=== PATIENT | male | born 1965 | race Caucasian/White ===

== ENCOUNTER 2017-10-13 18:58 | Emergency (ER) | payer OTHER ==
--- NOTE | 2017-10-13 19:20 | ERPHSYRPT ---
- History of Present Illness Time Seen by Provider: 10/13/17 19:16 Source: patient Exam Limitations: no limitations Physician History: This is a 51-year-old white male with history of cervical fusion of his neck he arrives with complaint of pain in the right posterior base of the neck symptoms for 5 days. According to patient he bumped his head getting in his truck on Tuesday he did it again on Tuesday (5 and 3 days ago respectively) He denies any loss of consciousness he has pain in his posterior neck. Past medical history includes peripheral neuropathy, diabetes, he's had a scrotal sac removed secondary to gangrene Past surgical history includes joint replacement, (right knee) he's had the cervical fusion, scrotal sac removed secondary to gangrene patient does take hydrocodone on a regular basis which she receives from Dr. Arana. Timing/Duration: day(s) (5 days ago) Severity: moderate Modifying Factors: Improves With: movement Associated Symptoms: No nausea, No vomiting, No abdominal pain, No shortness of breath, No heartburn, No diaphoresis, No cough, No chills, No chest pain, No fever, No headaches, No loss of appetite, No malaise, No rash, No syncope, No seizure, No weakness Allergies/Adverse Reactions: iodine Allergy (Verified 10/13/17 19:33) sulfamethoxazole [From Bactrim] Allergy (Verified 05/22/16 17:40) trimethoprim [From Bactrim] Allergy (Verified 05/22/16 17:40) IV DYE Allergy (Uncoded 05/22/16 17:40) PLASTIC TAPE Allergy (Uncoded 05/22/16 17:40) Home Medications: Glipizide 5 mg [Glucotrol 5 MG] 10 mg PO BID 10/06/13 [History] Escitalopram Oxalate [Lexapro] 20 mg PO HS 05/22/16 [History] Liraglutide [Victoza 2-Zeb] 1.8 mg SQ DAILY 05/22/16 [History] Gabapentin 1 cap PO TID 07/19/17 [History] Hydrocodone/Acetaminophen [Hydrocodone-Acetamin 7.5-325] 1 tab PO BID 10/13/17 [ History] Liraglutide [Victoza 2-Zeb] 1.8 mg SQ DAILY 10/13/17 [History] Meloxicam 15 mg [Meloxicam 15 MG] 15 mg PO DAILY 10/13/17 [History] Rivaroxaban [Xarelto] 1 tab PO DAILY 10/13/17 [History] Testosterone Cypionate 200 mg IM UD 10/13/17 [History] Tizanidine HCl 4 mg [Zanaflex 4 MG] 4 mg PO TID PRN 10/13/17 [History] Hx Tetanus, Diphtheria Vaccination/Date Given: Yes Hx Influenza Vaccination/Date Given: Yes Hx Pneumococcal Vaccination/Date Given: Yes - Review of Systems Constitutional: No Fever, No Chills Eyes: No Symptoms Ears, Nose, & Throat: No Symptoms Respiratory: No Cough, No Dyspnea Cardiac: No Chest Pain, No Edema, No Syncope Abdominal/Gastrointestinal: No Abdominal Pain, No Nausea, No Vomiting, No Diarrhea Genitourinary Symptoms: No Dysuria Musculoskeletal: Neck Pain Skin: No Symptoms, No Rash Neurological: No Dizziness, No Focal Weakness, No Sensory Changes Psychological: No Symptoms Endocrine: No Symptoms All Other Systems: Reviewed and Negative - Past Medical History Pertinent Past Medical History: Yes Neurological History: Peripheral Neuropathy Cardiac History: No Pertinent History Respiratory History: No Pertinent History Endocrine Medical History: Diabetes Type II Musculoskeletal History: No Pertinent History Other Medical History: PT IS NON-INSULIN DEPENDENT DIABETIC, scrotal sac removed for a history of a spider bite that resulted in gangrene as stated per pt. - Past Surgical History Past Surgical History: Yes Musculoskeletal: Joint Replacement, Orthopedic Surgery Other Surgical History: SCROTOM REMOVED AND REBUILT, RT KNEE REPLACEMENT - Social History Smoking Status: Current every day smoker How long have you smoked: 25 years Exposure to second hand smoke: Yes Drug Use: none Patient Lives Alone: Yes - Nursing Vital Signs Nursing Vital Signs: Initial Vital Signs Temperature 98.1 F 10/13/17 19:03 Pulse Rate 89 10/13/17 19:03 Blood Pressure 97/54 10/13/17 19:03 O2 Sat by Pulse Oximetry 96 10/13/17 19:03 Pain Scale Pain Intensity 10 - Physical Exam General Appearance: no apparent distress, alert Eye Exam: PERRL/EOMI, eyes nml inspection Ears, Nose, Throat Exam: normal ENT inspection, TMs normal, pharynx normal, moist mucous membranes Neck Exam: normal inspection, non-tender, supple, full range of motion Respiratory Exam: normal breath sounds, lungs clear, No respiratory distress Cardiovascular Exam: regular rate/rhythm, normal heart sounds, normal peripheral pulses Gastrointestinal/Abdomen Exam: soft, normal bowel sounds, No tenderness, No mass Back Exam: normal inspection, normal range of motion, other (tenderness with palpation base of the neck posteriorly), No CVA tenderness, No vertebral tenderness Extremity Exam: normal inspection, normal range of motion, pelvis stable Neurologic Exam: alert, oriented x 3, cooperative, normal mood/affect, nml cerebellar function, nml station & gait, sensation nml, No motor deficits Skin Exam: normal color, warm, dry, No rash Lymphatic Exam: No adenopathy SpO2 Interpretation: normal - Course Nursing assessment & vital signs reviewed: Yes - CT Exams Cervical Spine CT Interpretation: Discussed w/radiologist, Other (CT cervical spine: Stable C4- C6 fusion and C4-T1 degenerative disc disease compared to October 04, 2017 C- spine x-ray. C5-C7 spinal canal narrowing due. Negative fracture/subluxation) Ordered Tests: Active Orders 24 hr Category Date Time Status CERVICAL SPINE WO CONTRAST [CT] Stat Exams 10/13/17 19:15 Taken - Progress Progress: improved Progress Note: 10/13/17 20:[address] C-spine performed Impression as read by radiologist stable C4-C6 fusion and C4-T1 degenerative disc disease compared to October 04, 2017 C-spine x-ray, C5-C7 spinal canal narrowing due to degenerative disc disease, negative fracture/subluxation Patient takes Poneto prescribed by Dr. rAana for his pain I have offered him when in the emergency room he states he has more at home he does not want anything at this time. Will give patient Flexeril 10 mg orally sent home with Flexeril 10 mg orally 3 times a day for 5 days. I have advised that the patient follow back up with Dr. Arana the patient's states that he has an appointment with Dr. Arana Will recommend she contact him for follow-up. Patient to return for acute distress or for severe symptoms. - Departure Time of Disposition: 20:25 Departure Disposition: Home Clinical Impression: Neck pain, History of degenerative disc disease, spinal canal narrowing due to DDD Cervical strain Qualifiers: Encounter type: initial encounter Qualified Code(s): S16.1XXA - Strain of muscle, fascia and tendon at neck level, initial encounter Condition: Fair Critical Care Time: No Referrals: AZUL AMADO, SHIPPING AND RECEIVING CLERK [Primary Care Provider] - Additional Instructions: Return home rest. Continue Poneto as prescribed by Dr. Arana. Flexeril 10 mg orally 3 times a day for 5 days. Follow-up with Dr. Arana call in the morning . Return for acute distress or for severe symptoms. Prescriptions: Cyclobenzaprine HCl [Flexeril] 10 mg PO TID #15 tablet
[2017-10-13] MEDS ORDERED: Cyclobenzaprine 10 MG ONE (20:26)
[2017-10-13] MEDS: Cyclobenzaprine 10 MG PO ONE (20:27)
[2017-10-13 20:40] VITALS: BP 104/59; PULSE 96; O2SAT 97
--- NOTE | 2017-10-14 08:35 | XRAY ---
Indication: Pain following head injury 4 days ago. Multiple contiguous axial images obtained through the cervical spine. Sagittal and coronal reformatted images obtained. Comparison: Cervical radiograph October 04, 2017. Axial images negative for acute fracture or suspicious bony lesions. Again C4-C6 fusion surgery with intact anterior plate/screws and intervertebral spacers. There is also mild/moderate C4-T1 degenerative endplate spurring and atlantoaxial degenerative changes. C5-C7 levels demonstrates spinal canal and bilateral foraminal narrowing due to endplate spurring. Sagittal and coronal reformatted images again demonstrate normal normal alignment with mild C6-C7 disc space narrowing. No acute compression fracture, subluxation, or jumped facet. Normal-appearing craniocervical junction. Visualized noncontrasted soft tissues demonstrate mild bilateral carotid calcifications. Base of the brain and lung apices unremarkable. Impression: 1. Negative for acute fracture/subluxation. 2. Stable C4-C6 fusion surgery. 3. Stable multilevel degenerative changes with subsequent C5-C7 foraminal and spinal canal narrowing. CT DI 127.40
== END 2017-10-13 20:38 | disposition home or self-care (01) ==
LOC: ED 18:58
DX: S16.1XXA Strain of muscle, fascia and tendon at neck level, initial encounter (principal); M54.2 Cervicalgia; Z79.899 Other long term (current) drug therapy; M48.02 Spinal stenosis, cervical region; M50.323 Other cervical disc degeneration at C6-C7 level
CPT/HCPCS: 72125; 99283; 99284; A9270-GY

== ENCOUNTER 2018-04-22 12:44 | Emergency (ER) | payer MEDICARE ==
--- NOTE | 2018-04-22 13:15 | ERPHSYRPT ---
- History of Present Illness Time Seen by Provider: 04/22/18 13:15 Historian: patient Exam Limitations: no limitations Patient Subjective Stated Complaint: pt here for abd pain for 2 weeks, was seen by family doc and is to see surgeon. pt co n/v/d. Triage Nursing Assessment: pt alert, resp easy, sin w/d/p, abd tender to left side Physician History: The patient is a 52-year-old male with his complaining of worsening "stomach pain" for 2 weeks. This week he saw a local care provider and was told he needed to see a surgeon for a upper scope. The surgeon cannot see him until May. After he eats, he will either vomit or have diarrhea. After eating, his stomach will feel better for a few minutes until he vomits. He does not eat spicy foods. He drinks 2 or 3 cups of coffee daily in the morning. He does not drink alcohol, although he did have a few drinks last Tuesday, the first he has had in 4 years. He denies any abdominal surgeries. His past medical history is significant for diabetes, low testosterone, cervical spine surgery, PE, and depression. Timing/Duration: week(s) (2), gradual onset, worse Activities at Onset: none Quality: burning, stabbing Abdominal Pain Onset Location: epigastric Pain Radiation: back Severity of Pain-Max: severe Severity of Pain-Current: moderate Modifying Factors: Improves With: nothing Associated Symptoms: diarrhea, nausea, vomiting Previous symptoms: same symptoms as today, recently seen, recently treated Allergies/Adverse Reactions: iodine Allergy (Verified 04/22/18 13:05) sulfamethoxazole [From Bactrim] Allergy (Verified 04/22/18 13:05) trimethoprim [From Bactrim] Allergy (Verified 04/22/18 13:05) IV DYE Allergy (Uncoded 04/22/18 13:05) PLASTIC TAPE Allergy (Uncoded 04/22/18 13:05) Home Medications: Glipizide 5 mg [Glucotrol 5 MG] 10 mg PO BID 10/06/13 [History] Escitalopram Oxalate [Lexapro] 20 mg PO HS 05/22/16 [History] Liraglutide [Victoza 2-Zeb] 1.8 mg SQ DAILY 05/22/16 [History] Gabapentin 1 cap PO TID 07/19/17 [History] Liraglutide [Victoza 2-Zeb] 1.8 mg SQ DAILY 10/13/17 [History] Meloxicam 15 mg [Meloxicam 15 MG] 15 mg PO DAILY 10/13/17 [History] Rivaroxaban [Xarelto] 1 tab PO DAILY 10/13/17 [History] Testosterone Cypionate 200 mg IM UD 10/13/17 [History] Tizanidine HCl 4 mg [Zanaflex 4 MG] 4 mg PO TID PRN 10/13/17 [History] Tapentadol HCl [Nucynta ER] 50 mg DAILY 04/22/18 [History] Hx Tetanus, Diphtheria Vaccination/Date Given: Yes Hx Influenza Vaccination/Date Given: No Hx Pneumococcal Vaccination/Date Given: No Immunizations Up to Date: Yes - Review of Systems Constitutional: No Fever, No Chills Eyes: No Symptoms Ears, Nose, & Throat: No Symptoms Respiratory: No Cough, No Dyspnea Cardiac: No Chest Pain, No Edema, No Syncope Abdominal/Gastrointestinal: Abdominal Pain, Nausea, Vomiting, Diarrhea Genitourinary Symptoms: No Symptoms Musculoskeletal: No Back Pain, No Neck Pain Skin: No Rash Neurological: No Dizziness, No Focal Weakness, No Sensory Changes Psychological: No Symptoms Endocrine: No Symptoms Hematologic/Lymphatic: No Symptoms Immunological/Allergic: No Symptoms All Other Systems: Reviewed and Negative - Past Medical History Pertinent Past Medical History: Yes Neurological History: Peripheral Neuropathy Cardiac History: No Pertinent History Respiratory History: No Pertinent History Endocrine Medical History: Diabetes Type II Musculoskeletal History: No Pertinent History Other Medical History: PT IS NON-INSULIN DEPENDENT DIABETIC, scrotal sac removed for a history of a spider bite that resulted in gangrene as stated per pt. - Past Surgical History Past Surgical History: Yes Musculoskeletal: Joint Replacement, Orthopedic Surgery Other Surgical History: SCROTOM REMOVED AND REBUILT, RT KNEE REPLACEMENT - Social History Smoking Status: Current some day smoker How long have you smoked: 25 years Exposure to second hand smoke: No Drug Use: none Patient Lives Alone: No - Nursing Vital Signs Nursing Vital Signs: Initial Vital Signs Temperature 97.9 F 04/22/18 12:59 Pulse Rate 97 H 04/22/18 12:59 Respiratory Rate 18 04/22/18 12:59 Blood Pressure 158/94 04/22/18 12:59 O2 Sat by Pulse Oximetry 98 04/22/18 12:59 Pain Scale Pain Intensity 0 - Physical Exam General Appearance: no apparent distress, obese Eye Exam: PERRL/EOMI, eyes nml inspection Ears, Nose, Throat Exam: normal ENT inspection, pharynx normal, moist mucous membranes Neck Exam: normal inspection, non-tender, supple, full range of motion Respiratory Exam: normal breath sounds, lungs clear, No respiratory distress Cardiovascular Exam: regular rate/rhythm, normal heart sounds Gastrointestinal/Abdomen Exam: normal bowel sounds, tenderness (epigastric) Rectal Exam: not done Back Exam: normal inspection, normal range of motion, No CVA tenderness, No vertebral tenderness Extremity Exam: normal inspection, normal range of motion, pelvis stable Neurologic Exam: alert, oriented x 3, cooperative, normal mood/affect, nml cerebellar function, sensation nml, No motor deficits Skin Exam: normal color, warm, dry SpO2 Interpretation: normal SpO2: 98 Oxygen Delivery: Room Air - Course EKG Interpreted by Me: RATE, Sinus Rhythm, NORMAL AXIS, NORMAL INTERVALS, NORMAL QRS, NORMAL ST-T - CT Exams Abdomen/Pelvis CT Interpretation: Tele-radiologist Report (Per Dr Kirkland), No appendicitis, Other (non acute abdomin; bilateral pulmonary nodules) Ordered Tests: Active Orders 24 hr Category Date Time Status Clean Catch Urine Specimen STAT Care 04/22/18 15:29 Active EKG-ER Only STAT Care 04/22/18 13:06 Active IV Insertion STAT Care 04/22/18 13:34 Active ABDOMEN AND PELVIS W/0 CONTRAS [CT] Stat Exams 04/22/18 13:34 Taken AMYLASE Stat Lab 04/22/18 13:34 Completed CBC W DIFF Stat Lab 04/22/18 13:34 Completed CMP Stat Lab 04/22/18 13:34 Completed LIPASE Stat Lab 04/22/18 13:34 Completed Lactic Acid Stat Lab 04/22/18 13:50 Results TROPONIN Q3H Lab 04/22/18 13:45 Completed UA W/RFX UR CULTURE Stat Lab 04/22/18 15:29 Ordered Medication Summary Discontinued Medications Generic Name Dose Route Start Last Admin Trade Name Freq PRN Reason Stop Dose Admin Sodium Chloride 1,000 mls @ 999 mls/hr 04/22/18 13:34 04/22/18 13:42 Sodium Chloride 0.9% 1000 Ml IV 04/22/18 14:34 999 mls/hr .Q1H1M STA Administration Sodium Chloride Confirm 04/22/18 13:39 Sodium Chloride 0.9% 1000 Ml Administered 04/22/18 13:40 Dose 1,000 mls @ ud .ROUTE .STK-MED ONE Morphine Sulfate 4 mg 04/22/18 14:02 04/22/18 14:08 Morphine Sulfate 4 Mg Inj IV 04/22/18 14:03 4 mg STAT ONE Administration Morphine Sulfate Confirm 04/22/18 14:05 Morphine Sulfate 4 Mg Inj Administered 04/22/18 14:06 Dose 4 mg .ROUTE .STK-MED ONE Ondansetron HCl 4 mg 04/22/18 13:34 04/22/18 13:43 Zofran 4 Mg/2 Ml Vial IV 04/22/18 13:35 4 mg STAT ONE Administration Ondansetron HCl Confirm 04/22/18 13:38 Zofran 4 Mg/2 Ml Vial Administered 04/22/18 13:39 Dose 4 mg .ROUTE .STK-MED ONE Pantoprazole Sodium 40 mg 04/22/18 13:34 04/22/18 13:43 Protonix 40 Mg Iv IV 04/22/18 13:35 40 mg STAT ONE Administration Pantoprazole Sodium Confirm 04/22/18 13:38 Protonix 40 Mg Iv Administered 04/22/18 13:39 Dose 40 mg IV .STK-MED ONE Lab/Rad Data: Laboratory Result Diagrams 04/22/18 13:34 04/22/18 13:34 Laboratory Results 04/22/18 04/22/18 04/22/18 Range/Units 13:50 13:45 13:34 WBC (4.0-10.5) K/mm3 RBC (4.1-5.6) M/mm3 Hgb (12.5-18.0) gm/dl Hct (42-50) % MCV (78-100) fl MCH (26-32) pg MCHC (32-36) g/dl RDW (11.5-14.0) % Plt Count (150-450) K/mm3 MPV (6-9.5) fl Gran % (36.0-66.0) % Eos # (Auto) (0-0.5) Absolute Lymphs (auto) (1.0-4.6) Absolute Monos (auto) (0.0-1.3) Lymphocytes % (24.0-44.0) % Monocytes % (0.0-12.0) % Eosinophils % (0.00-5.0) % Basophils % (0.0-0.4) % Absolute Granulocytes (1.4-6.9) Basophils # (0-0.4) Sodium 137 (137-145) mmol/L Potassium 5.0 (3.5-5.1) mmol/L Chloride 97 L (98-107) mmol/L Carbon Dioxide 28 (22-30) mmol/L Anion Gap 16.6 H (5-15) MEQ/L BUN 18 (9-20) mg/dL Creatinine 0.79 (0.66-1.25) mg/dL Estimated GFR > 60.0 ML/MIN Glucose 203 H (74-106) mg/dL Lactic Acid 1.9 (0.4-2.0) Calcium 9.7 (8.4-10.2) mg/dL Total Bilirubin 0.50 (0.2-1.3) mg/dL AST 26 (17-59) U/L ALT 28 (0-50) U/L Alkaline Phosphatase 87 (38-126) U/L Troponin I < 0.012 (0.000-0.034) ng/mL Serum Total Protein 7.1 (6.3-8.2) g/dL Albumin 4.4 (3.5-5.0) g/dL Amylase < 30 L (30-110) U/L Lipase 60 (23-300) U/L 04/22/18 Range/Units 13:34 WBC 11.9 H (4.0-10.5) K/mm3 RBC 5.02 (4.1-5.6) M/mm3 Hgb 15.1 (12.5-18.0) gm/dl Hct 46.2 (42-50) % MCV 92.0 (78-100) fl MCH 30.1 (26-32) pg MCHC 32.7 (32-36) g/dl RDW 13.4 (11.5-14.0) % Plt Count 263 (150-450) K/mm3 MPV 10.2 H (6-9.5) fl Gran % 73.2 H (36.0-66.0) % Eos # (Auto) 0.33 (0-0.5) Absolute Lymphs (auto) 1.98 (1.0-4.6) Absolute Monos (auto) 0.85 (0.0-1.3) Lymphocytes % 16.6 L (24.0-44.0) % Monocytes % 7.1 (0.0-12.0) % Eosinophils % 2.8 (0.00-5.0) % Basophils % 0.3 (0.0-0.4) % Absolute Granulocytes 8.74 H (1.4-6.9) Basophils # 0.04 (0-0.4) Sodium (137-145) mmol/L Potassium (3.5-5.1) mmol/L Chloride (98-107) mmol/L Carbon Dioxide (22-30) mmol/L Anion Gap (5-15) MEQ/L BUN (9-20) mg/dL Creatinine (0.66-1.25) mg/dL Estimated GFR ML/MIN Glucose (74-106) mg/dL Lactic Acid (0.4-2.0) Calcium (8.4-10.2) mg/dL Total Bilirubin (0.2-1.3) mg/dL AST (17-59) U/L ALT (0-50) U/L Alkaline Phosphatase (38-126) U/L Troponin I (0.000-0.034) ng/mL Serum Total Protein (6.3-8.2) g/dL Albumin (3.5-5.0) g/dL Amylase (30-110) U/L Lipase (23-300) U/L - Progress Progress: improved Progress Note: 04/22/18 15:54 After MSO4 4 mg, protonix 40 mg, zofran 4 mg, and fluids by IV, pt is pain-free. Counseled pt/family regarding: lab results, diagnosis, need for follow-up, rad results - Departure Time of Disposition: 15:55 Departure Disposition: Home Clinical Impression: Gastritis, Pulmonary nodules Condition: Stable Critical Care Time: No Referrals: AUZL AMADO, INTERIOR DESIGN COORDINATOR [Primary Care Provider] - Additional Instructions: You have gastritis. You were given Protonix 40 mg, morphine 4 mg, Zofran or milligrams, and fluids by IV in the ER. Take omeprazole 20 mg 2 times a day. Take sucralfate 1 g 4 times a day. You also had findings of pulmonary nodules in your left and right lower lungs. These were found on the CT scan of her abdomen and pelvis. Follow-up with your primary medical doctor next week. Prescriptions: Omeprazole 20 mg PO DAILY #30 tab.rap. Sucralfate 1 gm PO QID #40 tablet
[2018-04-22] MEDS ORDERED: Sodium Chloride 0.9% 1000 ML 1,000 ML IV STA (13:34)
[2018-04-22] MEDS ORDERED: PROTONIX 40 MG IV IV ONE ×2 (13:34→13:38)
[2018-04-22] MEDS ORDERED: Zofran 4 MG/2 ML VIAL IV ONE (13:34)
[2018-04-22] MEDS ORDERED: Zofran 4 MG/2 ML VIAL ONE (13:38)
[2018-04-22] MEDS ORDERED: Sodium Chloride 0.9% 1000 ML 1,000 ML ONE (13:39)
[2018-04-22 13:44] LABS: BASOPHIL % 0.3 % (0.0-0.4); Basophil (Absolute #) 0.04 (0-0.4); Eosinophil % 2.8 % (0.00-5.0); Eosinophil (Absolute #) 0.33 (0-0.5); Granulocyte Absolute (ANC) 8.74 (1.4-6.9); Granulocytes % 73.2 % (36.0-66.0); Hematocrit 46.2 % (42-50); Hemoglobin 15.1 gm/dl (12.5-18.0); Lymphocyte (Absolute #) 1.98 (1.0-4.6); Lymphocytes % 16.6 % (24.0-44.0); Mean Corpuscular Hemoglobin 30.1 pg (26-32); Mean Corpuscular Hgb Concent. 32.7 g/dl (32-36); Mean Platelet Volume 10.2 fl (6-9.5); Monocyte (Absolute #) 0.85 (0.0-1.3); Monocytes % 7.1 % (0.0-12.0); Platelet Count 263 K/mm3 (150-450); Red Blood Count 5.02 M/mm3 (4.1-5.6); Red Cell Distribution Width 13.4 % (11.5-14.0); White Blood Count 11.9 K/mm3 (4.0-10.5)
[2018-04-22 13:51] LABS: ALBUMIN 4.4 g/dL (3.5-5.0); ALKALINE PHOSPHATASE 87 U/L (38-126); AMYLASE < 30 U/L (30-110); ANION GAP 16.6 MEQ/L (5-15); BLOOD UREA NITROGEN 18 mg/dL (9-20); CHLORIDE 97 mmol/L (98-107); Calcium 9.7 mg/dL (8.4-10.2); Carbon Dioxide 28 mmol/L (22-30); Creatinine 1 0.79 mg/dL (0.66-1.25); Glucose 203 mg/dL (74-106); LIPASE 60 U/L (23-300); SGOT/AST 26 U/L (17-59); SGPT/ALT 28 U/L (0-50); SODIUM 137 mmol/L (137-145); Total Protein 7.1 g/dL (6.3-8.2)
[2018-04-22 13:54] LABS: Lactic Acid 1.9 (0.4-2.0)
[2018-04-22] MEDS ORDERED: MORPHINE SULFATE 4 MG INJ IV ONE (14:02)
[2018-04-22] MEDS ORDERED: MORPHINE SULFATE 4 MG INJ ONE (14:05)
[2018-04-22 15:59] VITALS: PULSE 100
[2018-04-22 16:01] VITALS: O2SAT 98
[2018-04-22 16:16] VITALS: BP 113/91
--- NOTE | 2018-04-22 16:44 | XRAY ---
Indication: Abdominal pain 2 weeks. Nausea, vomiting, and diarrhea. Multiple contiguous axial images obtained through the abdomen and pelvis without contrast as ordered. Comparison: None. Lung bases demonstrates minimal bibasilar dependent atelectasis and 5 mm left lower lobe noncalcified nodule. No ventricular effusion. Heart is not enlarged. Noncontrasted stomach and bowel loops appear nonobstructed. Normal appendix. Mild fecal debris in the ascending and transverse colon. 2 nonobstructing right renal microcalculi, largest 3 mm in the lower calyx. There are 2 left lower pole renal cysts, largest 6.3 cm. Remaining liver, gallbladder, pancreas, spleen, adrenal glands, kidneys, ureters, and bladder appear unremarkable for noncontrast exam. Mild scattered aortoiliac calcifications without AAA. Osseous structures intact with mild degenerative changes throughout the thoracolumbar spine. No ventral or inguinal hernias. Impression: 1. Left renal cysts and nonobstructing right renal microcalculi. 2. No acute intra-abdominal/pelvic abnormalities on this noncontrast exam. 3. Incidental left lower lobe noncalcified micronodule probably granulomatous in this demographic. CT chest may yield further information if clinically warranted. Comment: Preliminary interpretation was made by [facility] who does not report incidental right renal microcalculi. CTDI 23.68
[2018-04-22 19:21] LABS: Appearance CLEAR (CLEAR); Glucose >=500 mg/dL (NEGATIVE); Leukocyte Esterase NEGATIVE (NEGATIVE); Nitrite NEGATIVE (NEGATIVE); Protein,Urine Dip NEGATIVE (Negative)
[2018-04-22 19:22] LABS: Bilirubin NEGATIVE (NEGATIVE); Blood NEGATIVE Ery/ul (0-5); Ketones NEGATIVE (NEGATIVE); Urobilinogen NORMAL mg/dL (0-1)
== END 2018-04-22 16:16 | disposition home or self-care (01) ==
LOC: ED 12:44
DX: K29.70 Gastritis, unspecified, without bleeding (principal); R91.1 Solitary pulmonary nodule; R10.13 Epigastric pain; R11.2 Nausea with vomiting, unspecified; R19.7 Diarrhea, unspecified; Z79.899 Other long term (current) drug therapy
CPT/HCPCS: 36000; 36415; 74176; 80053; 81001; 82150; 83605; 83690; 84484; 85025; 93005; 96360; 96374; 96375; 99284; J2270; J2405

== ENCOUNTER 2019-02-22 14:26 | Emergency (ER) | payer MEDICARE ==
[2019-02-22] MEDS ORDERED: DILAUDID 2 MG INJECTION IM ONE (14:50)
[2019-02-22] MEDS ORDERED: Hydromorphone 1 mg/ml Ampule ONE (15:17)
--- NOTE | 2019-02-22 15:17 | ERPHSYRPT ---
- History of Present Illness Time Seen by Provider: 02/22/19 15:00 Source: patient Exam Limitations: no limitations Patient Subjective Stated Complaint: pt stated he had an angioplasty due on 02/14 , pt stated that dog jumped up on pt, pt stated that pain has increased due to the dog jumping up on him Triage Nursing Assessment: pt came into the ER stated that he is in 7/10 pain, pt has 2 incisions on left leg, pt has scattered bruising to left leg, pt stated that he had angioplasty done on the Physician History: Patient had an angioplasty 8 days ago at [facility] due to peripheral vascular disease. His dog hit his leg in the morning of 02/21/2019 at the incision site, causing severe pain that his Nucenta 300mg BID has not improved. He has not been evaluated prior to today's visit. He denies any dehiscence to the incision site or bleeding or drainage of any type to the incision site. Method of Injury: direct blow (dog jumped up and hit the lower medial leg incision site) Occurred: yesterday Quality: stabbing, throbbing Severity of Pain-Max: severe Severity of Pain-Current: severe Lower Extremities Pain: leg: left Modifying Factors: Improves With: movement (makes it worse), other (palpation makes it worse) Associated Symptoms: No unable to bear weight, No dizzy, No fainted, No seizure , No snapping sensation, No popping sensation Allergies/Adverse Reactions: iodine Allergy (Verified 02/22/19 15:24) sulfamethoxazole [From Bactrim] Allergy (Verified 02/22/19 15:24) trimethoprim [From Bactrim] Allergy (Verified 02/22/19 15:24) IV DYE Allergy (Uncoded 04/22/18 13:05) PLASTIC TAPE Allergy (Uncoded 04/22/18 13:05) Home Medications: Glipizide 5 mg [Glucotrol 5 MG] 10 mg PO BID 10/06/13 [History] Gabapentin 1 cap PO BID 07/19/17 [History] Liraglutide [Victoza 2-Zeb] 1.8 mg SQ DAILY 10/13/17 [History] Testosterone Cypionate 200 mg IM UD 10/13/17 [History] Atorvastatin Calcium 80 mg PO DAILY 02/22/19 [History] Ranitidine HCl 300 mg PO DAILY 02/22/19 [History] Hx Tetanus, Diphtheria Vaccination/Date Given: Yes (unknown) Hx Influenza Vaccination/Date Given: No Hx Pneumococcal Vaccination/Date Given: No - Review of Systems Constitutional: No Fever, No Chills Eyes: No Symptoms Ears, Nose, & Throat: No Symptoms Respiratory: No Cough, No Dyspnea Cardiac: No Chest Pain, No Edema, No Palpitations, No Syncope Abdominal/Gastrointestinal: No Abdominal Pain, No Nausea, No Vomiting, No Diarrhea Genitourinary Symptoms: No Dysuria, No Hematuria, No Flank Pain Musculoskeletal: No Back Pain, No Neck Pain Skin: No Rash Neurological: No Dizziness, No Focal Weakness, No Parasthesia, No Sensory Changes Psychological: No Symptoms Endocrine: No Symptoms Hematologic/Lymphatic: No Easy Bleeding, No Easy Bruising All Other Systems: Reviewed and Negative - Past Medical History Pertinent Past Medical History: Yes Neurological History: Peripheral Neuropathy ENT History: No Pertinent History Cardiac History: Peripheral Vascular Disease Respiratory History: No Pertinent History Endocrine Medical History: Diabetes Type II Musculoskeletal History: No Pertinent History GI Medical History: No Pertinent History History: No Pertinent History Psycho-Social History: No Pertinent History Male Reproductive Disorders: No Pertinent History Other Medical History: PT IS NON-INSULIN DEPENDENT DIABETIC, scrotal sac removed for a history of a spider bite that resulted in gangrene as stated per pt. - Past Surgical History Past Surgical History: Yes Neuro Surgical History: No Pertinent History Cardiac: Vascular Surgery Respiratory: No Pertinent History Gastrointestinal: No Pertinent History Genitourinary: No Pertinent History Musculoskeletal: Joint Replacement, Orthopedic Surgery Male Surgical History: No Pertinent History Other Surgical History: SCROTOM REMOVED AND REBUILT, RT KNEE REPLACEMENT, angioplasty to left leg - Social History Smoking Status: Former smoker How long have you smoked: 25 years Exposure to second hand smoke: No Drug Use: none Patient Lives Alone: No - Nursing Vital Signs Nursing Vital Signs: Initial Vital Signs Temperature 98.2 F 02/22/19 14:39 Pulse Rate 97 H 02/22/19 14:39 Respiratory Rate 16 02/22/19 14:39 Blood Pressure 115/83 02/22/19 14:39 O2 Sat by Pulse Oximetry 96 02/22/19 14:39 Pain Scale Pain Intensity [] 7 Pain Intensity 7 - Physical Exam General Appearance: alert Eyes, Ears, Nose, Throat Exam: moist mucous membranes Neck Exam: non-tender, supple Cardiovascular/Respiratory Exam: chest non-tender, normal breath sounds, regular rate/rhythm, no respiratory distress Gastrointestinal/Abdominal Exam: non-tender, soft, No guarding, No tenderness Back Exam: normal inspection, No CVA tenderness, No vertebral tenderness Hips Exam: bilateral: non-tender, normal inspection, normal range of motion, no evidence of injury Legs Exam: right leg: non-tender, normal inspection, left leg: ecchymosis ( around the incision site of the left distal medial thigh), soft tissue tenderness (at site of intact incision at the medial lower thigh; no surrounding fluctuance or ecchymosis), bilateral leg: normal range of motion, no evidence of injury Knees Exam: bilateral knee: non-tender, normal inspection, normal range of motion, no evidence of injury Ankle Exam: bilateral ankle: non-tender, normal inspection, normal range of motion, no evidence of injury Foot Exam: bilateral foot: soft tissue tenderness (chronic left side toe soft tissue changes ) Neuro/Tendon Exam: normal sensation, normal motor functions Mental Status Exam: alert, oriented x 3, cooperative Skin Exam: normal color, warm, dry, No abrasion, No laceration SpO2 Interpretation: normal SpO2: 96 O2 Delivery: Room Air - Radiology Ultrasound Exam Left Arterial Lower Extremity Ultrasound: Other (per radiologist interpretation: Mild arteriosclerotic disease in the distal superficial femoral artery. Remaining left leg or to a sonogram negative for critical stenosis\obstruction. CT abdominal aorta with bilateral runoff if further information if there remains further clinical concern.) Ordered Tests: Active Orders 24 hr Category Date Time Status ARTERIAL UNILAT/LTD LOWER EXT [US] Stat Exams 02/22/19 14:48 Completed Medication Summary Discontinued Medications Generic Name Dose Route Start Last Admin Trade Name Freq PRN Reason Stop Dose Admin Hydromorphone HCl 2 mg 02/22/19 14:50 02/22/19 15:20 Dilaudid 2 Mg Injection IM 02/22/19 14:51 2 mg ONCE ONE Administration Hydromorphone HCl Confirm 02/22/19 15:17 Hydromorphone 1 Mg/Ml Ampule Administered 02/22/19 15:18 Dose 2 mg .ROUTE .[facility]-MED ONE - Progress Progress: improved Progress Note: 02/22/19 16:32 Pain has improved significantly after IM Dilaudid. No change in incision site. Reviewed Arterial Sonogram with the patient and no need at this time for CTA abdominal aorta with runoff. Patient has not been on Xarelto for 3 months. Counseled pt/family regarding: diagnosis, need for follow-up, rad results - Departure Departure Disposition: Home Clinical Impression: Contusion of left thigh, initial encounter Incisional irritation Qualifiers: Encounter type: initial encounter Qualified Code(s): T81.89XA - Other complications of procedures, not elsewhere classified, initial encounter Condition: Good Critical Care Time: No Referrals: AZUL AMADO NP [Primary Care Provider] - 02/23/19 Instructions: Surgical Wound (DC), Contusion (DC) Additional Instructions: If pain returns, contact your surgeon in [place], [place] to discuss further evaluation or treatment options. returned he nearly back to the emergency room if he had any severe pain, worsening discoloration, or change in the incision site, drainage or bleeding from incision site, or any other concerning signs or symptoms that were not present at today's emergency room visit for immediate reevaluation in the emergency department. Prescriptions: Etodolac 400 mg [Lodine 400 mg] 400 mg PO BID PRN PRN #10 tablet PRN Reason: Pain
--- NOTE | 2019-02-22 16:22 | XRAY ---
Indication: Thigh pain. Recent vascular surgery. Two-dimensional sonogram and color Doppler imaging of the major arteries of the left leg was performed. Comparison: None Mild scattered arteriosclerotic disease in the distal superficial femoral artery. Remaining visualized left common femoral, deep femoral, superficial femoral, popliteal, posterior tibial, and dorsal pedal arteries are patent and negative for critical stenosis/obstruction. Mid to distal posterior tibial and dorsal pedal arteries demonstrate monophasic arterial waveforms. Remaining left leg arterial waveforms are multiphasic. Ankle-brachial index not performed as the patient could not tolerate due to ankle surgical scar. Impression: Mild arteriosclerotic disease in the distal superficial femoral artery. Remaining left leg arterial sonogram negative for critical stenosis/obstruction. CTA abdominal aorta with bilateral runoff may yield further information if there remains further clinical concern.
[2019-02-22 17:09] VITALS: PULSE 83; O2SAT 97
[2019-02-22 18:05] VITALS: BP 119/68
== END 2019-02-22 18:45 | disposition home or self-care (01) ==
LOC: ED 14:26
DX: T81.89XA Other complications of procedures, not elsewhere classified, initial encounter (principal)
CPT/HCPCS: 93926; 96372; 99284; J1170

== ENCOUNTER 2019-02-23 15:12 | Emergency (ER) | payer MEDICARE ==
--- NOTE | 2019-02-23 15:39 | ERPHSYRPT ---
- History of Present Illness Time Seen by Provider: 02/23/19 15:39 Source: patient Exam Limitations: no limitations Patient Subjective Stated Complaint: PT states "I had an angiography on my left leg on tuesday and today, I went to visit a friend and when I got out of the car I started to walk accross the parking lot and passed out. I am not sure if I fell on my left leg or not but it really hurts." Triage Nursing Assessment: Pt presented alert and oriented X 3, skin pwd Pt ambulates with a limp, able to speak in clear full sentences pt in no apparent respiratory ditress. Pt has CSM X 4. 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 pt denies injury after the fall. he has had several of these episodes in the past but none for 2 years. pt had extensive work up per his report but no cause found. 9 days ago pt underwent a left lower ext angioplasty. pt states no evidence of bleeding. Witnessed: unwitnessed Prior Episodes: single episode today Timing/Duration: today Precipitating Factors: unknown Charcter of event(s): other ("went down") Allergies/Adverse Reactions: iodine Allergy (Verified 02/22/19 15:24) sulfamethoxazole [From Bactrim] Allergy (Verified 02/22/19 15:24) trimethoprim [From Bactrim] Allergy (Verified 02/22/19 15:24) IV DYE Allergy (Uncoded 04/22/18 13:05) PLASTIC TAPE Allergy (Uncoded 04/22/18 13:05) Home Medications: Glipizide 5 mg [Glucotrol 5 MG] 10 mg PO BID 10/06/13 [History] Gabapentin 1 cap PO BID 07/19/17 [History] Liraglutide [Victoza 2-Zeb] 1.8 mg SQ DAILY 10/13/17 [History] Testosterone Cypionate 200 mg IM UD 10/13/17 [History] Atorvastatin Calcium 80 mg PO DAILY 02/22/19 [History] Ranitidine HCl 300 mg PO DAILY 02/22/19 [History] Hx Tetanus, Diphtheria Vaccination/Date Given: Yes Hx Influenza Vaccination/Date Given: No Hx Pneumococcal Vaccination/Date Given: No Immunizations Up to Date: Yes - Past Medical History Pertinent Past Medical History: Yes Neurological History: Peripheral Neuropathy ENT History: No Pertinent History Cardiac History: Peripheral Vascular Disease Respiratory History: No Pertinent History Endocrine Medical History: Diabetes Type II Musculoskeletal History: No Pertinent History GI Medical History: No Pertinent History History: No Pertinent History Psycho-Social History: No Pertinent History Male Reproductive Disorders: No Pertinent History Other Medical History: PT IS NON-INSULIN DEPENDENT DIABETIC, scrotal sac removed for a history of a spider bite that resulted in gangrene as stated per pt. - Past Surgical History Past Surgical History: Yes Neuro Surgical History: No Pertinent History Cardiac: Vascular Surgery Respiratory: No Pertinent History Gastrointestinal: No Pertinent History Genitourinary: No Pertinent History Musculoskeletal: Joint Replacement, Orthopedic Surgery Male Surgical History: No Pertinent History Other Surgical History: SCROTOM REMOVED AND REBUILT, RT KNEE REPLACEMENT, angioplasty to left leg - Social History Smoking Status: Former smoker How long have you smoked: 25 years Exposure to second hand smoke: Yes Drug Use: none Patient Lives Alone: No - Review of Systems Constitutional: No Symptoms Eyes: No Symptoms Ears, Nose, & Throat: No Symptoms Respiratory: No Symptoms Cardiac: Other (pvdz) Abdominal/Gastrointestinal: No Symptoms Genitourinary Symptoms: No Symptoms Musculoskeletal: No Symptoms Skin: No Symptoms Psychological: No Symptoms Endocrine: No Symptoms Hematologic/Lymphatic: No Symptoms Immunological/Allergic: No Symptoms All Other Systems: Reviewed and Negative Physical Exam - Nursing Vital Signs Nursing Vital Signs: Initial Vital Signs Temperature 98.2 F 02/23/19 15:21 Pulse Rate 110 H 02/23/19 15:21 Respiratory Rate 18 02/23/19 15:21 Blood Pressure 124/79 02/23/19 15:21 O2 Sat by Pulse Oximetry 98 02/23/19 15:21 Pain Scale Pain Intensity 10 - Fran Coma Scale Best Eye Response (Crumrod): (4) open spontaneously Best Verbal Response ([place]): (5) oriented Best Motor Response (Fran): (6) obeys commands [place] Total: 15 - Physical Exam General Appearance: no apparent distress, alert, anxiety Eye Exam: bilateral eye: normal inspection, PERRL, EOMI Ears, Nose, Throat Exam: normal ENT inspection, moist mucous membranes Neck Exam: normal inspection, non-tender, supple, full range of motion Respiratory: normal breath sounds, lungs clear, airway intact, No chest tenderness, No respiratory distress Cardiovascular: normal heart sounds, normal peripheral pulses, tachycardia (mild ) Gastrointestinal: soft, normal bowel sounds, No tenderness Rectal Exam: not done Back Exam: normal inspection, normal range of motion Extremity Exam: normal inspection, normal range of motion, pelvis stable Mental Status: alert, oriented x 3, 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 Exam: normal hearing, normal speech, PERRL, tongue midline Coordination/Gait: normal finger to nose, normal gait, normal cerebellar function Motor/Sensory: no motor deficit, no sensory deficit Skin Exam: normal color, warm, dry SpO2 Interpretation: normal SpO2: 98 O2 Delivery: Room Air - Course EKG Interpreted by Me: RATE, Sinus Rhythm, NORMAL AXIS, NORMAL INTERVALS, NORMAL QRS, Other (no comparison ekg) Ordered Tests: Active Orders 24 hr Category Date Time Status EKG-ER Only STAT Care 02/23/19 15:43 Active IV Insertion STAT Care 02/23/19 15:43 Active Orthostatic Vital Signs STAT Care 02/23/19 15:43 Active Pulse Oximetry (ED) STAT Care 02/23/19 15:43 Active HEAD WITHOUT CONTRAST [CT] Stat Exams 02/23/19 15:44 Completed CBC W DIFF Stat Lab 02/23/19 15:43 Completed CMP Stat Lab 02/23/19 16:10 Completed UA W/RFX UR CULTURE Stat Lab 02/23/19 17:15 Completed Medication Summary Generic Name Dose Route Start Last Admin Trade Name Freq PRN Reason Stop Dose Admin Sodium Chloride 1,000 mls @ 999 mls/hr 02/23/19 17:07 02/23/19 17:17 Sodium Chloride 0.9% 1000 Ml IV 02/23/19 18:07 999 mls/hr .[id number] STA Administration Discontinued Medications Generic Name Dose Route Start Last Admin Trade Name Freq PRN Reason Stop Dose Admin Sodium Chloride Confirm 02/23/19 17:15 Sodium Chloride 0.9% 1000 Ml Administered 02/23/19 17:16 Dose 1,000 mls @ ud .ROUTE .[facility]K-MED ONE Lab/Rad Data: Laboratory Result Diagrams 02/23/19 15:43 02/23/19 16:10 Laboratory Results 02/23/19 02/23/19 02/23/19 Range/Units 17:15 16:10 15:43 WBC 11.2 H (4.0-10.5) K/mm3 RBC 4.06 L (4.1-5.6) M/mm3 Hgb 12.8 (12.5-18.0) gm/dl Hct 38.4 L (42-50) % MCV 94.6 (78-100) fl MCH 31.5 (26-32) pg MCHC 33.3 (32-36) g/dl RDW 13.2 (11.5-14.0) % Plt Count 368 (150-450) K/mm3 MPV 9.0 (6-9.5) fl Gran % 73.2 H (36.0-66.0) % Eos # (Auto) 0.40 (0-0.5) Absolute Lymphs (auto) 1.99 (1.0-4.6) Absolute Monos (auto) 0.57 (0.0-1.3) Lymphocytes % 17.7 L (24.0-44.0) % Monocytes % 5.1 (0.0-12.0) % Eosinophils % 3.6 (0.00-5.0) % Basophils % 0.4 (0.0-0.4) % Absolute Granulocytes 8.24 H (1.4-6.9) Basophils # 0.04 (0-0.4) Sodium 139 (137-145) mmol/L Potassium 4.7 (3.5-5.1) mmol/L Chloride 105 (98-107) mmol/L Carbon Dioxide 22 (22-30) mmol/L Anion Gap 17.1 H (5-15) MEQ/L BUN 28 H (9-20) mg/dL Creatinine 1.04 (0.66-1.25) mg/dL Estimated GFR > 60.0 ML/MIN Glucose 222 H (74-106) mg/dL Calcium 9.6 (8.4-10.2) mg/dL Total Bilirubin 0.60 (0.2-1.3) mg/dL AST 38 (17-59) U/L ALT 28 (0-50) U/L Alkaline Phosphatase 66 (38-126) U/L Serum Total Protein 7.1 (6.3-8.2) g/dL Albumin 4.1 (3.5-5.0) g/dL Urine Color YELLOW (YELLOW) Urine Appearance CLEAR (CLEAR) Urine pH 5.0 (5-6) Ur Specific [place] 1.024 (1.005-1.025) Urine Protein NEGATIVE (Negative) Urine Ketones NEGATIVE (NEGATIVE) Urine Blood NEGATIVE (0-5) Isaac/ul Urine Nitrite NEGATIVE (NEGATIVE) Urine Bilirubin NEGATIVE (NEGATIVE) Urine Urobilinogen NEGATIVE (0-1) mg/dL Ur Leukocyte Esterase NEGATIVE (NEGATIVE) Urine WBC (Auto) 0-2 (0-5) /HPF Urine RBC (Auto) 0-2 (0-2) /HPF U Hyaline Cast (Auto) 11-25 (0-2) /LPF U Epithel Cells (Auto) NONE (FEW) /HPF Urine Bacteria (Auto) NONE SEEN (NEGATIVE) /HPF Urine Mucus (Auto) SLIGHT (NEGATIVE) /HPF Urine Culture Reflexed NO (NO) Urine Glucose >=500 (NEGATIVE) mg/dL - Progress Progress: improved Progress Note: 02/23/19 17:43 ct head-no acute process pt denies headache, denies cp, denies soa, denies cp. will place pt on 48 hour holter monitor. Counseled pt/family regarding: lab results, diagnosis, need for follow-up, rad results - Departure Departure Disposition: Home Clinical Impression: Episode of syncope Condition: Stable Critical Care Time: No Referrals: AZUL AMADO COMPOUND FINISHER [Primary Care Provider] - Additional Instructions: drink plenty of medication. write down your blood pressure 3 times daily over the weekend. call your doctor on Tuesday02/26/19 to arrange follow up and further management.
[2019-02-23 16:21] LABS: BASOPHIL % 0.4 % (0.0-0.4); Basophil (Absolute #) 0.04 (0-0.4); Eosinophil % 3.6 % (0.00-5.0); Granulocyte Absolute (ANC) 8.24 (1.4-6.9); Granulocytes % 73.2 % (36.0-66.0); Hematocrit 38.4 % (42-50); Hemoglobin 12.8 gm/dl (12.5-18.0); Lymphocyte (Absolute #) 1.99 (1.0-4.6); Lymphocytes % 17.7 % (24.0-44.0); Mean Cell Volume 94.6 fl (78-100); Mean Corpuscular Hemoglobin 31.5 pg (26-32); Mean Corpuscular Hgb Concent. 33.3 g/dl (32-36); Monocyte (Absolute #) 0.57 (0.0-1.3); Monocytes % 5.1 % (0.0-12.0); Platelet Count 368 K/mm3 (150-450); Red Blood Count 4.06 M/mm3 (4.1-5.6); Red Cell Distribution Width 13.2 % (11.5-14.0); White Blood Count 11.2 K/mm3 (4.0-10.5)
[2019-02-23 16:27] LABS: ALBUMIN 4.1 g/dL (3.5-5.0); ALKALINE PHOSPHATASE 66 U/L (38-126); ANION GAP 17.1 MEQ/L (5-15); BLOOD UREA NITROGEN 28 mg/dL (9-20); CHLORIDE 105 mmol/L (98-107); Calcium 9.6 mg/dL (8.4-10.2); Carbon Dioxide 22 mmol/L (22-30); Creatinine 1 1.04 mg/dL (0.66-1.25); Glucose 222 mg/dL (74-106); Potassium 4.7 mmol/L (3.5-5.1); SGOT/AST 38 U/L (17-59); SGPT/ALT 28 U/L (0-50); SODIUM 139 mmol/L (137-145); Total Protein 7.1 g/dL (6.3-8.2)
--- NOTE | 2019-02-23 16:45 | XRAY ---
Indication: Syncope. Multiple contiguous axial images obtained through the head without contrast. Comparison: October 12, 2013. Normal appearing brain parenchyma, ventricles, and bony calvarium. Visualized paranasal sinuses and mastoid air cells are clear. Impression: Again normal CT head without contrast exam. CTDI 68.32
[2019-02-23] MEDS ORDERED: Sodium Chloride 0.9% 1000 ML 1,000 ML IV STA (17:07)
[2019-02-23 17:10] VITALS: BP 123/77; PULSE 97
[2019-02-23] MEDS ORDERED: Sodium Chloride 0.9% 1000 ML 1,000 ML ONE (17:15)
[2019-02-23 17:20] VITALS: O2SAT 98
[2019-02-23 17:29] LABS: Appearance CLEAR (CLEAR); Bilirubin NEGATIVE (NEGATIVE); Blood NEGATIVE Ery/ul (0-5); Glucose >=500 mg/dL (NEGATIVE); Ketones NEGATIVE (NEGATIVE); Leukocyte Esterase NEGATIVE (NEGATIVE); Mucus SLIGHT /HPF (NEGATIVE); Nitrite NEGATIVE (NEGATIVE); Protein,Urine Dip NEGATIVE (Negative); RBC 0-2 /HPF (0-2); Specific Gravity 1.024 (1.005-1.025); Urobilinogen NEGATIVE mg/dL (0-1); WBC 0-2 /HPF (0-5)
[2019-02-23 17:31] LABS: Bacteria NONE SEEN /HPF (NEGATIVE)
== END 2019-02-23 17:51 | disposition home or self-care (01) ==
LOC: ED 15:12
DX: R55 Syncope and collapse (principal)
CPT/HCPCS: 36000; 36415; 70450; 80053; 81001; 85025; 93005; 93225; 94760; 96360; 99284

== ENCOUNTER 2019-06-26 19:20 | Emergency (ER) | payer MEDICARE ==
[2019-06-26 19:38] VITALS: BP 165/89; PULSE 100; O2SAT 98
[2019-06-26] MEDS ORDERED: Rocephin 1000 MG INJ IM ONE (19:39)
[2019-06-26] MEDS ORDERED: XYLOCAINE 1% HCL 20 ML MDV IJ ONE (19:39)
[2019-06-26] MEDS ORDERED: Rocephin 1000 MG INJ ONE (20:02)
[2019-06-26] MEDS ORDERED: Vibramycin 100 MG PO ONE (20:10)
[2019-06-26] MEDS ORDERED: Vibramycin 100 MG ONE (20:13)
--- NOTE | 2019-06-26 20:16 | ERPHSYRPT ---
- History of Present Illness Time Seen by Provider: 06/26/19 19:40 Source: patient, family Exam Limitations: no limitations Patient Subjective Stated Complaint: pt states he has had an abcess on chest for 1 week. has been on antibiotics for a week from pcp but it has not improved at all, pt states that his doctor told him to go to er Triage Nursing Assessment: pt alert and oriented rates pain in abcess on chest as 10 Physician History: 53 y/o diabetic white male presents with chest wall abscess for one week. pt states he was tx with clindamycin and area increased in size. pt states no nonhealing ulcer or wound prior to this coming up. denies fever. Timing/Duration: week(s) (1) Quality: burning Severity: mild Location: other (chest wall) Possible Causes: other (? hair follicle) Allergies/Adverse Reactions: iodine Allergy (Verified 06/26/19 19:38) sulfamethoxazole [From Bactrim] Allergy (Verified 06/26/19 19:38) trimethoprim [From Bactrim] Allergy (Verified 06/26/19 19:38) IV DYE Allergy (Uncoded 06/26/19 19:38) PLASTIC TAPE Allergy (Uncoded 06/26/19 19:38) Home Medications: Glipizide 5 mg [Glucotrol 5 MG] 10 mg PO BID 10/06/13 [History] Gabapentin 1 cap PO BID 07/19/17 [History] Liraglutide [Victoza 2-Zeb] 1.8 mg SQ DAILY 10/13/17 [History] Testosterone Cypionate 200 mg IM UD 10/13/17 [History] Atorvastatin Calcium 80 mg PO DAILY 02/22/19 [History] Ranitidine HCl 300 mg PO DAILY 02/22/19 [History] Hx Tetanus, Diphtheria Vaccination/Date Given: Yes Hx Influenza Vaccination/Date Given: No Hx Pneumococcal Vaccination/Date Given: No - Review of Systems Constitutional: No Symptoms Eyes: No Symptoms Ears, Nose, & Throat: No Symptoms Respiratory: No Symptoms Cardiac: No Symptoms Abdominal/Gastrointestinal: No Symptoms Genitourinary Symptoms: No Symptoms Musculoskeletal: No Symptoms Skin: Other (abscess central chest wall ) Neurological: No Symptoms Psychological: No Symptoms Endocrine: No Symptoms Hematologic/Lymphatic: No Symptoms Immunological/Allergic: No Symptoms All Other Systems: Reviewed and Negative - Past Medical History Pertinent Past Medical History: Yes Neurological History: Peripheral Neuropathy ENT History: No Pertinent History Cardiac History: Peripheral Vascular Disease Respiratory History: No Pertinent History Endocrine Medical History: Diabetes Type II Musculoskeletal History: No Pertinent History GI Medical History: No Pertinent History History: No Pertinent History Psycho-Social History: No Pertinent History Male Reproductive Disorders: No Pertinent History Other Medical History: PT IS NON-INSULIN DEPENDENT DIABETIC, scrotal sac removed for a history of a spider bite that resulted in gangrene as stated per pt. - Past Surgical History Past Surgical History: Yes Neuro Surgical History: No Pertinent History Cardiac: Vascular Surgery Respiratory: No Pertinent History Gastrointestinal: No Pertinent History Genitourinary: No Pertinent History Musculoskeletal: Joint Replacement, Orthopedic Surgery Male Surgical History: No Pertinent History Other Surgical History: SCROTOM REMOVED AND REBUILT, RT KNEE REPLACEMENT, angioplasty to left leg - Social History Smoking Status: Light tobacco smoker How long have you smoked: 25 years Exposure to second hand smoke: No Drug Use: none Patient Lives Alone: No - Nursing Vital Signs Nursing Vital Signs: Initial Vital Signs Temperature 97.9 F 06/26/19 19:27 Pulse Rate 100 H 06/26/19 19:27 Respiratory Rate 18 06/26/19 19:27 Blood Pressure 165/89 06/26/19 19:27 O2 Sat by Pulse Oximetry 98 06/26/19 19:27 Pain Scale Pain Intensity 7 - Physical Exam General Appearance: no apparent distress, alert, anxiety Eye Exam: PERRL/EOMI, eyes nml inspection Ears, Nose, Throat Exam: normal ENT inspection, moist mucous membranes Neck Exam: normal inspection, non-tender, supple, full range of motion Respiratory Exam: normal breath sounds, lungs clear, airway intact, No chest tenderness, No respiratory distress Cardiovascular Exam: regular rate/rhythm, normal heart sounds, normal peripheral pulses Gastrointestinal/Abdomen Exam: soft, normal bowel sounds, No tenderness Rectal Exam: not done Back Exam: normal inspection, normal range of motion, No CVA tenderness Extremity Exam: normal inspection, normal range of motion, No pelvis stable Neurologic Exam: alert, oriented x 3, cooperative, neuropsychiatric aide II-XII nml as tested Skin Exam: normal color, warm, dry Lymphatic Exam: No adenopathy SpO2 Interpretation: normal SpO2: 98 O2 Delivery: Room Air Procedures - Incision and Drainage Site: chest wall abscess Anesthesia: 1% Lidocaine cc's of anesthesia: 3 Blade Size: 15 I & D Procedure: culture obtained, irrigated with normal saline, other (alcohol) Results: moderate amount pus (expressed pus from site after i and d until no further pus present) - Course Nursing assessment & vital signs reviewed: Yes Ordered Tests: Active Orders 24 hr Category Date Time Status CULTURE,WOUND Stat Lab 06/26/19 19:38 Ordered Medication Summary Generic Name Dose Route Start Last Admin Trade Name Freq PRN Reason Stop Dose Admin Doxycycline Hyclate 100 mg 06/26/19 20:10 Vibramycin 100 Mg PO 06/26/19 20:11 STAT ONE Discontinued Medications Generic Name Dose Route Start Last Admin Trade Name Freq PRN Reason Stop Dose Admin Ceftriaxone Sodium 1,000 mg 06/26/19 19:39 Rocephin 1000 Mg Inj IM 06/26/19 19:40 STAT ONE Ceftriaxone Sodium Confirm 06/26/19 20:02 Rocephin 1000 Mg Inj Administered 06/26/19 20:03 Dose 1,000 mg .ROUTE .STK-MED ONE Lidocaine HCl 5 ml 06/26/19 19:39 06/26/19 20:11 Xylocaine 1% Hcl 20 Ml Mdv IJ 06/26/19 19:40 5 ml STAT ONE Administration - Progress Progress: improved, pain not gone completely Counseled pt/family regarding: diagnosis, need for follow-up - Departure Departure Disposition: Home Clinical Impression: Chest wall abscess Condition: Stable Critical Care Time: No Referrals: AZUL AMADO, [facility] PILOT/NAVIGATOR/DDS OPERATOR [Primary Care Provider] - Additional Instructions: wash site out 1 to 2 times daily and with soap and water. cover with bandage daily. follow up with primary doctor for persistent symptoms and culture results. Prescriptions: Doxycycline Hyclate 100 mg [Vibramycin 100 MG] 100 mg PO BID #14 tab
== END 2019-06-26 20:41 | disposition home or self-care (01) ==
LOC: ED 19:20
DX: L02.213 Cutaneous abscess of chest wall (principal); E11.9 Type 2 diabetes mellitus without complications
CPT/HCPCS: 10160; 87070; 87077; 87186; 96372; 99284; J0696; A9270-GY

== ENCOUNTER 2019-12-02 15:41 | Inpatient (IN) | payer MEDICARE ==
[2019-12-02] MEDS ORDERED: Sodium Chloride 0.9% 1000 ML 1,000 ML IV STA (16:02)
--- NOTE | 2019-12-02 16:04 | ERPHSYRPT ---
- History of Present Illness Time Seen by Provider: 12/02/19 15:49 Source: patient Exam Limitations: no limitations Physician History: This is a 54-year-old patient, known diabetic, reports that he has had pain right side of his chest wall for about 1-1/2 weeks-is progressively getting worse to the point that he cannot lift his arm.states pain is 7/10, constant pain that increases with elevation of arm, no relieving factors, nonradiating. 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 Associated Symptoms: abdominal pain, diaphoresis, rash, No cough, No muscle aches, No nausea/vomiting, No shortness of breath, No sore throat Allergies/Adverse Reactions: iodine Allergy (Verified 06/26/19 19:38) sulfamethoxazole [From Bactrim] Allergy (Verified 06/26/19 19:38) trimethoprim [From Bactrim] Allergy (Verified 06/26/19 19:38) IV DYE Allergy (Uncoded 06/26/19 19:38) PLASTIC TAPE Allergy (Uncoded 06/26/19 19:38) Home Medications: Glipizide 5 mg [Glucotrol 5 MG] 10 mg PO BID 10/06/13 [History] Gabapentin 1 cap PO BID 07/19/17 [History] Liraglutide [Victoza 2-Zeb] 1.8 mg SQ DAILY 10/13/17 [History] Testosterone Cypionate 200 mg IM UD 10/13/17 [History] Atorvastatin Calcium 80 mg PO DAILY 02/22/19 [History] Ranitidine HCl 300 mg PO DAILY 02/22/19 [History] Hx Tetanus, Diphtheria Vaccination/Date Given: Yes Hx Influenza Vaccination/Date Given: No Hx Pneumococcal Vaccination/Date Given: No - Review of Systems Constitutional: Fever, Chills Eyes: No Symptoms Ears, Nose, & Throat: No Symptoms Respiratory: No Symptoms, No Cough, No Dyspnea on Exertion (GARZA) Cardiac: No Symptoms, No Chest Pain Abdominal/Gastrointestinal: Abdominal Pain Skin: Cellulitis Neurological: No Symptoms Psychological: No Symptoms Endocrine: No Symptoms All Other Systems: Reviewed and Negative - Past Medical History Pertinent Past Medical History: Yes Neurological History: Peripheral Neuropathy ENT History: No Pertinent History Cardiac History: Peripheral Vascular Disease Respiratory History: No Pertinent History Endocrine Medical History: Diabetes Type II Musculoskeletal History: No Pertinent History GI Medical History: No Pertinent History History: No Pertinent History Psycho-Social History: No Pertinent History Male Reproductive Disorders: No Pertinent History Other Medical History: PT IS NON-INSULIN DEPENDENT DIABETIC, scrotal sac removed for a history of a spider bite that resulted in gangrene as stated per pt. - Past Surgical History Past Surgical History: Yes Neuro Surgical History: No Pertinent History Cardiac: Vascular Surgery Respiratory: No Pertinent History Gastrointestinal: No Pertinent History Genitourinary: No Pertinent History Musculoskeletal: Joint Replacement, Orthopedic Surgery Male Surgical History: No Pertinent History Other Surgical History: SCROTOM REMOVED AND REBUILT, RT KNEE REPLACEMENT, angioplasty to left leg - Social History Smoking Status: Light tobacco smoker How long have you smoked: 25 years Exposure to second hand smoke: No Drug Use: none Patient Lives Alone: No - Nursing Vital Signs Nursing Vital Signs: Initial Vital Signs Temperature 98.9 F 12/02/19 16:14 Pulse Rate 97 H 12/02/19 16:14 Respiratory Rate 18 12/02/19 16:14 Blood Pressure 176/98 12/02/19 16:14 O2 Sat by Pulse Oximetry 98 12/02/19 16:14 Pain Scale Pain Intensity 7 - Physical Exam General Appearance: no apparent distress Eye Exam: PERRL/EOMI, eyes nml inspection, No scleral icterus ENT Exam: normal ENT inspection, no apparent trauma, hearing grossly normal, TMs normal Neck Exam: normal inspection, non-tender, supple, full range of motion, trachea midline, No JVD Respiratory Exam: normal breath sounds, chest non-tender, lungs clear, No no respiratory distress, No no accessory muscle use Cardiovascular/Chest Exam: normal heart sounds, regular rate/rhythm, normal peripheral pulses, No murmur, No edema Gastrointestinal/Abdominal Exam: soft, non tender, no organomegaly, no pulsatile mass, normal bowel sounds, No no distention, No no mass, No no guarding Extremity Exam: non-tender, normal range of motion, normal inspection Neurologic Exam: alert, oriented x 3, cooperative, 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 dietary 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 manager II-XII nml as tested Skin Exam: warm (+ evidence of extensive cellulitis of right chest wall, two areas of induration near axilla- no evidence of drainable abscess) Lymphatic: No adenopathy SpO2 Interpretation: normal SpO2: 98 O2 Delivery: Room Air - Radiology Exams Chest X-ray Interpretation: Interpreted by me (No evicence of pneumonia or rib fracture), No Pneumonia, Nml Soft Tissues - CT Exams Abdomen/Pelvis CT Interpretation: Normal Appendix, No appendicitis (+ cellulitis) Ordered Tests: Active Orders 24 hr Category Date Time Status Accucheck STAT Care 12/02/19 16:02 Active ABDOMEN AND PELVIS W/0 CONTRAS [CT] Stat Exams 12/02/19 15:59 Taken CHEST 2 VIEWS (PA AND LAT) Stat Exams 12/02/19 16:42 Taken BLOOD CULTURE Stat Lab 12/02/19 16:15 Received CBC W DIFF Stat Lab 12/02/19 16:15 Completed CMP Stat Lab 12/02/19 16:15 Completed Lactic Acid Stat Lab 12/02/19 16:18 Completed UA W/RFX UR CULTURE Stat Lab 12/02/19 16:00 Completed Medication Summary Generic Name Dose Route Start Last Admin Trade Name Freq PRN Reason Stop Dose Admin Vancomycin HCl 1 gm in 250 mls @ 167 mls/hr 12/02/19 17:26 Vancomycin 1gm/ Ns 250ml IV 12/02/19 18:55 STAT ONE Piperacillin Sod/Tazobactam 100 mls @ 200 mls/hr 12/02/19 17:27 Sod 3.375 gm/ Sodium Chloride IV 12/02/19 17:56 STAT ONE Discontinued Medications Generic Name Dose Route Start Last Admin Trade Name Freq PRN Reason Stop Dose Admin Sodium Chloride 1,000 mls @ 999 mls/hr 12/02/19 16:02 12/02/19 16:18 Sodium Chloride 0.9% 1000 Ml IV 12/02/19 17:02 999 mls/hr .Q1H1M STA Administration Sodium Chloride Confirm 12/02/19 16:08 Sodium Chloride 0.9% 1000 Ml Administered 12/02/19 16:09 Dose 1,000 mls @ ud .ROUTE .STK-MED ONE Lab/Rad Data: Laboratory Result Diagrams 12/02/19 16:15 12/02/19 16:15 Laboratory Results 12/02/19 12/02/19 12/02/19 Range/Units 16:18 16:15 16:15 WBC 20.5 H (4.0-10.5) K/mm3 RBC 4.18 (4.1-5.6) M/mm3 Hgb 13.3 (12.5-18.0) gm/dl Hct 40.1 L (42-50) % MCV 95.9 (78-100) fl MCH 31.8 (26-32) pg MCHC 33.2 (32-36) g/dl RDW 13.2 (11.5-14.0) % Plt Count 254 (150-450) K/mm3 MPV 9.3 (7.5-11.0) fl Gran % 84.7 H (36.0-66.0) % Eos # (Auto) 0.06 (0-0.5) Absolute Lymphs (auto) 1.42 (1.0-4.6) Absolute Monos (auto) 1.65 H (0.0-1.3) Lymphocytes % 6.9 L (24.0-44.0) % Monocytes % 8.0 (0.0-12.0) % Eosinophils % 0.3 (0.00-5.0) % Basophils % 0.1 (0.0-0.4) % Absolute Granulocytes 17.34 H (1.4-6.9) Basophils # 0.03 (0-0.4) Sodium 133 L (137-145) mmol/L Potassium 4.1 (3.5-5.1) mmol/L Chloride 98 (98-107) mmol/L Carbon Dioxide 26 (22-30) mmol/L Anion Gap 13.4 (5-15) MEQ/L BUN 20 (9-20) mg/dL Creatinine 1.28 H (0.66-1.25) mg/dL Estimated GFR > 60.0 ML/MIN Glucose 246 H (74-106) mg/dL Lactic Acid 1.3 (0.4-2.0) Calcium 8.8 (8.4-10.2) mg/dL Total Bilirubin 0.90 (0.2-1.3) mg/dL AST 15 L (17-59) U/L ALT 21 (0-50) U/L Alkaline Phosphatase 71 (38-126) U/L Serum Total Protein 6.8 (6.3-8.2) g/dL Albumin 3.7 (3.5-5.0) g/dL Urine Color (YELLOW) Urine Appearance (CLEAR) Urine pH (5-6) Ur Specific Maple (1.005-1.025) Urine Protein (Negative) Urine Ketones (NEGATIVE) Urine Blood (0-5) Isaac/ul Urine Nitrite (NEGATIVE) Urine Bilirubin (NEGATIVE) Urine Urobilinogen (0-1) mg/dL Ur Leukocyte Esterase (NEGATIVE) Urine WBC (Auto) (0-5) /HPF Urine RBC (Auto) (0-2) /HPF U Epithel Cells (Auto) (FEW) /HPF Urine Bacteria (Auto) (NEGATIVE) /HPF Urine Culture Reflexed (NO) Urine Glucose (NEGATIVE) mg/dL Slides for Path Review YES 12/02/19 Range/Units 16:00 WBC (4.0-10.5) K/mm3 RBC (4.1-5.6) M/mm3 Hgb (12.5-18.0) gm/dl Hct (42-50) % MCV (78-100) fl MCH (26-32) pg MCHC (32-36) g/dl RDW (11.5-14.0) % Plt Count (150-450) K/mm3 MPV (7.5-11.0) fl Gran % (36.0-66.0) % Eos # (Auto) (0-0.5) Absolute Lymphs (auto) (1.0-4.6) Absolute Monos (auto) (0.0-1.3) Lymphocytes % (24.0-44.0) % Monocytes % (0.0-12.0) % Eosinophils % (0.00-5.0) % Basophils % (0.0-0.4) % Absolute Granulocytes (1.4-6.9) Basophils # (0-0.4) Sodium (137-145) mmol/L Potassium (3.5-5.1) mmol/L Chloride (98-107) mmol/L Carbon Dioxide (22-30) mmol/L Anion Gap (5-15) MEQ/L BUN (9-20) mg/dL Creatinine (0.66-1.25) mg/dL Estimated GFR ML/MIN Glucose (74-106) mg/dL Lactic Acid (0.4-2.0) Calcium (8.4-10.2) mg/dL Total Bilirubin (0.2-1.3) mg/dL AST (17-59) U/L ALT (0-50) U/L Alkaline Phosphatase (38-126) U/L Serum Total Protein (6.3-8.2) g/dL Albumin (3.5-5.0) g/dL Urine Color RAHEL (YELLOW) Urine Appearance CLEAR (CLEAR) Urine pH 5.0 (5-6) Ur Specific Maple 1.018 (1.005-1.025) Urine Protein NEGATIVE (Negative) Urine Ketones TRACE (NEGATIVE) Urine Blood NEGATIVE (0-5) Isaac/ul Urine Nitrite NEGATIVE (NEGATIVE) Urine Bilirubin NEGATIVE (NEGATIVE) Urine Urobilinogen 4 (0-1) mg/dL Ur Leukocyte Esterase NEGATIVE (NEGATIVE) Urine WBC (Auto) NONE (0-5) /HPF Urine RBC (Auto) NONE (0-2) /HPF U Epithel Cells (Auto) NONE (FEW) /HPF Urine Bacteria (Auto) NONE (NEGATIVE) /HPF Urine Culture Reflexed NO (NO) Urine Glucose >=500 (NEGATIVE) mg/dL Slides for Path Review - Progress Progress Note: 12/02/19 16:17 This's a 54 yr old known diabetic presenting to ED for evaluation of extensive cellulitis of right chest wall, associated with fever and left flank pain - Vitals show tachycardia with ND 96, tachypnea with RR 24, HTN with BP 176/98 - statisfies SIRS criteria at presentation - blood cultures x 2 , Lactic acid and IVF bolus given on arrival - Workup: labs: CBC, CMP, UA,LActic acid, blood cultures x 2 Results: CBC reveals leukocytosis with WBC 20.5 and neutrophil count- 84.7, accuchk- 213; CMP -Na 133,Cr mildly elevated at 1.28, HBA1C 8.8, all other labs WNL Imaging- CXR 2 view-as interpreted by me shows no evidence of pneumonia, CT abdomen and pelvis without contrast-small amount of induration/thickening in the subcutaneous tissues of the right abdomen just medial and about the umbilicus. Nonspecific stranding in the subcutaneous tissues of the right lateral chest and abdominal wall without focal collections. Nonobstructing right renal stones. No hydronephrosis. No Biliary dilatation Medications given - IVF bolus, Iv vancomycin, IV zosyn 12/02/19 17:31 Discussed all above findings with patient, advised admission given extensive right chest wall cellulitis and SIRS Discussed with admitting who has agreed to take over further care Discussed with Dr.: Consuelo Will see patient in: hospital (full admit) - Departure Departure Disposition: In-patient Admission Clinical Impression: Cellulitis of chest wall, SIRS (systemic inflammatory response syndrome) Condition: Stable Critical Care Time: No Referrals: AZUL AMADO TECHNICAL SPECIALIST CYTOGENETICS [Primary Care Provider] -
[2019-12-02] MEDS ORDERED: Sodium Chloride 0.9% 1000 ML 1,000 ML ONE (16:08)
[2019-12-02 16:30] LABS: Absolute Neutrophil Ct (ANC) 17.34 (1.4-6.9); BASOPHIL % 0.1 % (0.0-0.4); Basophil (Absolute #) 0.03 (0-0.4); Eosinophil % 0.3 % (0.00-5.0); Eosinophil (Absolute #) 0.06 (0-0.5); Hematocrit 40.1 % (42-50); Hemoglobin 13.3 gm/dl (12.5-18.0); Lymphocyte (Absolute #) 1.42 (1.0-4.6); Lymphocytes % 6.9 % (24.0-44.0); Mean Cell Volume 95.9 fl (78-100); Mean Corpuscular Hemoglobin 31.8 pg (26-32); Mean Corpuscular Hgb Concent. 33.2 g/dl (32-36); Mean Platelet Volume 9.3 fl (7.5-11.0); Monocyte (Absolute #) 1.65 (0.0-1.3); Neutrophil % 84.7 % (36.0-66.0); Platelet Count 254 K/mm3 (150-450); Red Blood Count 4.18 M/mm3 (4.1-5.6); Red Cell Distribution Width 13.2 % (11.5-14.0); White Blood Count 20.5 K/mm3 (4.0-10.5)
[2019-12-02 16:32] LABS: Appearance CLEAR (CLEAR); Bilirubin NEGATIVE (NEGATIVE); Blood NEGATIVE Ery/ul (0-5); Glucose >=500 mg/dL (NEGATIVE); Ketones TRACE (NEGATIVE); Leukocyte Esterase NEGATIVE (NEGATIVE); Nitrite NEGATIVE (NEGATIVE); Protein,Urine Dip NEGATIVE (Negative); Specific Gravity 1.018 (1.005-1.025); Urobilinogen 4 mg/dL (0-1)
[2019-12-02 16:42] LABS: ALBUMIN 3.7 g/dL (3.5-5.0); ALKALINE PHOSPHATASE 71 U/L (38-126); ANION GAP 13.4 MEQ/L (5-15); BLOOD UREA NITROGEN 20 mg/dL (9-20); CHLORIDE 98 mmol/L (98-107); Calcium 8.8 mg/dL (8.4-10.2); Carbon Dioxide 26 mmol/L (22-30); Creatinine 1 1.28 mg/dL (0.66-1.25); Glucose 246 mg/dL (74-106); Potassium 4.1 mmol/L (3.5-5.1); SGOT/AST 15 U/L (17-59); SGPT/ALT 21 U/L (0-50); SODIUM 133 mmol/L (137-145); Total Protein 6.8 g/dL (6.3-8.2)
[2019-12-02 17:14] LABS: Slide Review 1 YES
[2019-12-02] MEDS ORDERED: Vancomycin 1GM/ Ns 250ML*** 1 GM/250 ML IVPB IV ONE (17:26)
[2019-12-02] MEDS ORDERED: Zosyn 3.375 GM Vial 3.375 GM in Sodium Chloride 100ML MINI-BAG PLUS 100 ML IV ONE (17:27)
[2019-12-02] MEDS ORDERED: Zosyn 3.375 GM Vial IV ONE (17:35)
[2019-12-02] MEDS ORDERED: Vancomycin 1GM/ Ns 250ML*** 250 ML IV ONE (17:35)
[2019-12-02] MEDS ORDERED: Sodium Chloride 0.9% 100 ML IVPB 100 ML IV ONE (17:36)
--- NOTE | 2019-12-02 19:39 | XRAY ---
Indication: Right flank pain. Multiple contiguous axial images obtained through the abdomen and pelvis without contrast as ordered. Comparison: April 22, 2018. Lung bases are clear. Heart is not enlarged. Noncontrasted stomach and bowel loops appear nonobstructed. Normal appendix. Increasing mild diffuse scattered colonic fecal debris throughout. No free fluid/air. Stable nonobstructing right renal micro-calculus, chronic pancreatitis calcifications, and left renal cysts. Remaining liver, gallbladder, pancreas, adrenal glands, kidneys, ureters, and bladder appear unremarkable for noncontrast exam. Stable mild aortoiliac calcifications without AAA. Osseous structures intact again with mild degenerative changes throughout the spine. No ventral or inguinal hernias. Impression: 1. New diffuse fecal stasis without obstruction. 2. Stable nonobstructing right renal micro-calculus, chronic pancreatitis calcifications, and left renal cysts. 3. Remaining CT abdomen/pelvis without contrast exam is negative. Comment: Preliminary interpretation was made by [facility]. No critical discrepancy.
--- NOTE | 2019-12-02 19:41 | XRAY ---
Indication: Right flank pain. Comparison: None PA/lateral chest clear with a few incidental tiny calcified granulomas. Heart is not enlarged. Bony thorax intact with mild degenerative changes and lower cervical fusion. Impression: Nonacute chest with chronic features.
[2019-12-02] MEDS: NEURONTIN 300 MG PO SCH (21:39)
[2019-12-02] MEDS: Oxycontin 20 MG ER PO SCH (21:39)
[2019-12-03] MEDS: TYLENOL 325 MG PO PRN (05:42)
[2019-12-03] MEDS ORDERED: Sodium Chloride 0.9% 500 ML 500 ML IV ONE ×5 (06:38→20:20)
[2019-12-03] MEDS ORDERED: PHARMACY DOSING REQUIRED: VANCOMYCIN IV STA (09:44)
[2019-12-03] MEDS: NEURONTIN 300 MG PO SCH ×3 (09:50→21:00)
[2019-12-03] MEDS: Oxycontin 20 MG ER PO SCH ×3 (09:53→21:00)
[2019-12-03] MEDS: Zosyn 3.375 GM Vial 3.375 GM in Sodium Chloride 100ML MINI-BAG PLUS 100 ML IV SCH ×4 (10:44→23:41)
[2019-12-03] MEDS: VANCOMYCIN 1.5 GRAM/300 ML BAG 1.5 GM/300 ML PIGGYBACK IV SCH ×2 (11:17→21:01)
[2019-12-03] MEDS ORDERED: ZOCOR 20MG PO SCH (12:00)
[2019-12-03] MEDS ORDERED: MEDICATION INTERVENTION MC SCH (12:00)
[2019-12-03] MEDS: Glucotrol Xl 10 MG PO SCH ×2 (12:18→21:00)
[2019-12-03] MEDS: Protonix 40MG Tablet PO SCH (12:20)
[2019-12-03] MEDS: PLAVIX 75 MG Tablet PO SCH (12:20)
[2019-12-03] MEDS: VOLTAREN 50 MG PO SCH ×2 (12:31→21:01)
[2019-12-03] MEDS ORDERED: Sodium Chloride 0.9% 1000 ML 1,000 ML IV STA (14:14)
[2019-12-03] MEDS: Sodium Chloride 0.9% 1000 ML 1,000 ML IV SCH ×2 (16:40→23:42)
--- NOTE | 2019-12-03 21:19 | PCM.HP ---
History of Present Illness - Chief Complaint Chief Complaint: right chest wall cellulitis, SIRS Date: 12/03/19 History of Present Illness: is a 54 year old male seen this afternoon following ER admission for chest wall cellulitis and SIRS. Patient reports that 10-11 days ago he started with a knot in his right lateral chest wall area. He reports that although it was not painful he noticed that it started getting larger. He reports that on tuesday his R lateral chest wall started to hurt he had an episode where he lost consciousness and couldnt remember certain events of that day. He reports that it wasnt until tuesday night he finally went to the ER because he didnt feel well and he couldnt lift his R arm up. Patient reports that since admission from the ER he has noticed that the swelling has gone down. He did feel dizzy earlier in the day but that has since resolved. He reports that he noticed his bp was low today and that it is never low he normally has high bp. Patient reports that he is diabetic. He stated that his was going to bring his meds from home however she recently had surgery and so was unable to do so. 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 Of note patient was upset when I entered the room because I had not been in earlier to see him. I explained that I have both hospital and clinic patients and that although I had not seen him I had been addressing his care through the nurse. He was upset with a work related issue and reported he was told by the ER doctor that he would be able to leave after 48 hours. I explained that it was inappropriate for the ER doctor to tell him he could leave after 48 hours when the ER doctor would not be able to evalute his status and see if he was stable and well enough to go home. I did explain to him he is able to leave at anytime but at this point during his admission it would be against AMA . - Review of Systems Constitutional: Fever, Weakness Eyes: No Symptoms Ears, Nose, & Throat: No Symptoms Respiratory: No Cough, No Short Of Breath, No Wheezing Cardiac: No Chest Pain, No Edema Abdominal/Gastrointestinal: No Symptoms Genitourinary Symptoms: No Symptoms Musculoskeletal: Joint Pain, Joint Swelling, Other (Significant swelling, pain and decreased ROM R lateral chest wall axilla area) Skin: Cellulitis (R lateral chest wall ) Neurological: No Symptoms Medications & Allergies Home Medications: Home Medication List Testosterone Cypionate 200 mg IM UD 10/13/17 [History Confirmed 12/02/19] Omeprazole 20 mg PO DAILY #30 tab 04/22/18 [Rx Confirmed 12/02/19] Clopidogrel Bisulfate [Clopidogrel] 75 mg PO DAILY 12/02/19 [History Confirmed 12/02/19] Diclofenac Sodium 75 mg PO BID 12/02/19 [History Confirmed 12/02/19] Gabapentin [Gralise] 600 mg PO TID 12/02/19 [History Confirmed 12/02/19] Glipizide Xl 10 mg [Glucotrol Xl 10 MG] 10 mg PO BID 12/02/19 [History Confirmed 12/02/19] Metformin HCl 1,000 mg PO BID 12/02/19 [History Confirmed 12/02/19] Tapentadol HCl [Nucynta ER] 250 mg PO BID 12/02/19 [History Confirmed 12/02/19] Liraglutide [Victoza 2-Zeb] 1.8 mg SQ DAILY 12/03/19 [History Confirmed 12/03/19] Allergies/Adverse Reactions: Allergies Allergy/AdvReac Type Severity Reaction Status Date / Time iodine Allergy Verified 06/26/19 19:38 Sulfa (Sulfonamide Allergy Verified 12/02/19 18:57 Antibiotics) sulfamethoxazole Allergy Verified 06/26/19 19:38 [From Bactrim] trimethoprim [From Bactrim] Allergy Verified 06/26/19 19:38 IV DYE Allergy Uncoded 06/26/19 19:38 PLASTIC TAPE Allergy Uncoded 06/26/19 19:38 - Past Medical History Past Medical History: Yes Neurological History: Peripheral Neuropathy ENT History: No Pertinent History Cardiac History: Peripheral Vascular Disease Respiratory History: Sleep Apnea Endocrine Medical History: Diabetes Type II Musculoskelatal History: No Pertinent History GI Medical History: No Pertinent History History: No Pertinent History Pyscho-Social History: No Pertinent History Male Reproductive Disorders: No Pertinent History Comment: PT IS NIDDM, scrotal sac removed for a history of a spider bite that resulted in gangrene as stated per pt. - Past Surgical History Past Surgical History: Yes Neuro Surgical History: No Pertinent History Cardiac History: Vascular Surgery Respiratory Surgery: No Pertinent History GI Surgical History: No Pertinent History Genitourinary Surgical Hx: No Pertinent History Musculskeletal Surgical Hx: Joint Replacement, Orthopedic Surgery Male Surgical History: No Pertinent History Other Surgical History: SCROTOM REMOVED AND REBUILT, RT KNEE REPLACEMENT, angioplasty to left leg - Social History Smoking Status: Former smoker How long have you smoked: 25 years Exposure to second hand smoke: No Alcohol: None Drug Use: none - Physical Exam Vital Signs: Vital Signs - 24 hr Temp Pulse Resp BP Pulse Ox 12/03/19 20:00 97.0 F 88 16 121/64 96 12/03/19 16:00 98.2 F 98 H 20 112/61 94 L 12/03/19 15:42 98.6 F 12/03/19 12:00 101.7 F 111 H 18 111/66 12/03/19 11:10 123 H 109/56 12/03/19 10:45 118 H 98/51 12/03/19 10:30 119 H 115/57 12/03/19 09:35 95/59 12/03/19 08:05 92/60 12/03/19 07:56 101.1 F 90/46 12/03/19 07:36 102.6 F 125 H 18 86/38 90 L 12/03/19 04:00 103 F 131 H 24 95/61 97 12/03/19 00:00 98.4 F 99 H 18 151/81 97 12/02/19 22:23 98.5 F 96 H 18 152/84 97 General Appearance: moderate distress Neurologic Exam: alert, oriented x 3, other (Patient was extremely agitated initially and then was more cooperative as exam continued), No confusion, No depressed mood/affect Eye Exam: No scleral icterus, No pale conjunctivae Ears, Nose, Throat Exam: moist mucous membranes Neck Exam: normal inspection Respiratory Exam: normal breath sounds, chest tenderness, lungs clear, No respiratory distress, No diminished breath sounds, No wheezing Cardiovascular Exam: normal heart sounds, tachycardia, No murmur, No friction rub, No gallop Gastrointestinal/Abdomen Exam: soft, normal bowel sounds, No tenderness, No distention, No mass, No guarding Extremity Exam: other (Patient was unable to lift R arm up as it was too painful. Decreased ROM R shoulder joint) Skin Exam: normal color, warm, dry, other (Significant area of induration R lateral chest wall with a 4 -6 cm palpable mass which was extremely tender to palpation), No rash Wound Assessment: Skin/Wound Assessment Wound/Incision Assessment Start: 12/02/19 18:45 Text: Status: Active Freq: Q6H Protocol: Document 12/03/19 20:00 ST (Rec: 12/03/19 20:40 ST [id number]) Wound/Incision Assessment Right Chest Wound Assessment Shift Assessment Wound Type CELLULITIS Drainage Amount None Wound Photo Photo Taken No Results - Labs Lab/Micro Results: Accuchecks Accucheck Value: 281 Accucheck Value: 318 Accucheck Value: 210 Lab Results-Last 24 Hours 12/03/19 Range/Units 10:22 Lactic Acid 1.0 (0.4-2.0) Accuchecks Accucheck Value: 281 Accucheck Value: 318 Accucheck Value: 210 - Radiology Impressions Radiology Exams & Impressions: Radiology Procedures Category Date Time Status ABDOMEN AND PELVIS W/0 CONTRAS [CT] Stat Exams 12/02/19 15:59 Completed CHEST 2 VIEWS (PA AND LAT) Stat Exams 12/02/19 16:42 Completed CHEST WITHOUT CONTRAST [CT] Urgent Exams 12/03/19 21:03 Ordered Assessment/Plan (1) Sepsis Current Visit: Yes Status: Acute Assessment & Plan: Patient met criteria for sepsis and sepsis protocol was instituted. He had lactic acid x2. 2nd lactic acid was wnl. Patient was bolused with additional IV fluids and his tachycardia and blood pressure began to improve. Patient was started on IV antibiotics in ER which were not continued when he was admitted to inpatient. Patient's IV antibiotics were resumed. Patient's VS improved after these steps were implemented. Patient reports decrease in swelling and pain of his R lateral chest wall area. Will continue to monitor VS and continue with IV antibiotics at this time. (2) Diabetes Current Visit: Yes Status: Acute Assessment & Plan: Patient will only be able to continue a few of his routine diabetes medications. He refused insulin during his exam. We will try to give what oral DM meds we have available. He will need diabetic diet and routine accuchecks Code(s): E11.9 - TYPE 2 DIABETES MELLITUS WITHOUT COMPLICATIONS (3) SAHRA (obstructive sleep apnea) Current Visit: Yes Status: Acute Assessment & Plan: Self reported hx of SAHRA. Will get patient evaluated for cpap during hospital admission Code(s): G47.33 - OBSTRUCTIVE SLEEP APNEA (ADULT) (PEDIATRIC) (4) HTN (hypertension) Current Visit: Yes Status: Acute Assessment & Plan: Hx of HTN however bp was hypo this am likely due to sepsis. Will continue to monitor bp and hold meds if necessary Code(s): I10 - ESSENTIAL (PRIMARY) HYPERTENSION (5) Tobacco abuse Current Visit: Yes Status: Acute Assessment & Plan: Patient both chews and smokes tobacco. No expressed interest in quitting. Code(s): Z72.0 - TOBACCO USE (6) Cellulitis of chest wall Current Visit: Yes Status: Acute Assessment & Plan: Patient was admitted for cellulitis of chest wall. Will get dedicated CT chest to evaluate the extend of the cellulitis and rule out possible underlying abscess[place] [address] which is fairly elevated for cellulitis. Code(s): L03.313 - CELLULITIS OF CHEST WALL (7) Chest wall abscess Current Visit: No Status: Acute Assessment & Plan: CT chest to rule out chest wall abscess as there is a palpable 4 cm tender area R lateral chest wall. Code(s): L02.213 - CUTANEOUS ABSCESS OF CHEST WALL
[2019-12-03] MEDS ORDERED: NON-FORMULARY ITEM (Diclofenac Sodium [Diclofenac Sodium] 75 MG) PO SCH (22:00)
[2019-12-04] MEDS: Zosyn 3.375 GM Vial 3.375 GM in Sodium Chloride 100ML MINI-BAG PLUS 100 ML IV SCH ×4 (05:48→23:28)
--- NOTE | 2019-12-04 08:53 | XRAY ---
Indication: Right axilla and chest wall cellulitis/abscess. Elevated WBC. Fever. Multiple contiguous axial images obtained through the chest without contrast as ordered. Comparison: May 09, 2018. Right axilla and right mid axillary subcutaneous soft tissues now demonstrates moderate induration favoring patient's cellulitis. Right axilla also demonstrates new reactive lymphadenopathy largest 2.6 x 6.0 cm. No walled off fluid collection or subcutaneous emphysema. Lungs demonstrate new mild right lung the dependent atelectasis greatest near the lung base. Stable left lower lobe calcified granuloma. No suspicious pulmonary mass, consolidation, or effusion. Heart is not enlarged. Aorta is normal in course and caliber again with minimal calcifications. No pathologic mediastinal lymphadenopathy. Bony thorax again demonstrates moderate degenerative changes throughout the spine. CT abdomen/pelvis reported one day earlier. Impression: 1. New right lateral chest wall/axilla cellulitis with reactive lymphadenopathy. 2. New right lung dependent atelectasis. 3. No acute cardiopulmonary abnormalities on this noncontrast exam. Comment: Preliminary interpretation was made by [facility]. No critical discrepancy.
[2019-12-04] MEDS ORDERED: TROUGH DRUG LEVELS IJ ONE (09:30)
[2019-12-04] MEDS ORDERED: NON-FORMULARY ITEM (Omeprazole [Omeprazole] 20 MG) PO SCH (10:00)
[2019-12-04 10:35] LABS: Hematocrit 37.2 % (42-50); Mean Cell Volume 98.7 fl (78-100); Mean Corpuscular Hemoglobin 31.8 pg (26-32); Mean Corpuscular Hgb Concent. 32.3 g/dl (32-36); Mean Platelet Volume 9.6 fl (7.5-11.0); Platelet Count 256 K/mm3 (150-450); Red Blood Count 3.77 M/mm3 (4.1-5.6); Red Cell Distribution Width 13.2 % (11.5-14.0); White Blood Count 17.4 K/mm3 (4.0-10.5)
[2019-12-04] MEDS: Oxycontin 20 MG ER PO SCH (10:38)
[2019-12-04] MEDS: Glucotrol Xl 10 MG PO SCH ×2 (10:38→21:24)
[2019-12-04] MEDS: NEURONTIN 300 MG PO SCH ×3 (10:38→21:24)
[2019-12-04] MEDS: Protonix 40MG Tablet PO SCH (10:39)
[2019-12-04] MEDS: PLAVIX 75 MG Tablet PO SCH (10:39)
[2019-12-04] MEDS: VANCOMYCIN 1.5 GRAM/300 ML BAG 1.5 GM/300 ML PIGGYBACK IV SCH ×2 (10:39→21:23)
[2019-12-04] MEDS: VOLTAREN 50 MG PO SCH ×2 (10:39→21:25)
[2019-12-04 10:40] LABS: ALBUMIN 3.3 g/dL (3.5-5.0); ALKALINE PHOSPHATASE 77 U/L (38-126); ANION GAP 12.7 MEQ/L (5-15); BLOOD UREA NITROGEN 28 mg/dL (9-20); CHLORIDE 104 mmol/L (98-107); Calcium 8.3 mg/dL (8.4-10.2); Carbon Dioxide 22 mmol/L (22-30); Creatinine 1 1.13 mg/dL (0.66-1.25); Glucose 243 mg/dL (74-106); Potassium 4.6 mmol/L (3.5-5.1); SGOT/AST 18 U/L (17-59); SGPT/ALT 17 U/L (0-50); SODIUM 134 mmol/L (137-145); Total Protein 6.2 g/dL (6.3-8.2)
[2019-12-04] MEDS: Sodium Chloride 0.9% 1000 ML 1,000 ML IV SCH (11:29)
--- NOTE | 2019-12-04 12:52 | XRAY ---
Indication: Dizziness and lightheaded. Multiple contiguous axial images obtained through the head without contrast. Comparison: February 23, 2019. Again normal appearing brain parenchyma, ventricles, and bony calvarium. Visualized paranasal sinuses and mastoid air cells are clear. Impression: Continued normal CT head without contrast exam.
[2019-12-04 14:53] LABS: BAND 11 % (0.0-2.0); Eosinophil 1 % (0.00-3.0); Lymphocytes 3 % (24-44); Monocyte 3 % (0.0-12.0); Neutrophils 82 % (36.-66.); Platelet Estimate NORMAL (NORMAL); Total Cells Counted 100
[2019-12-04] MEDS: TYLENOL 325 MG PO PRN (16:13)
[2019-12-04] MEDS: PATIENT OWN MEDICATION PO SCH ×2 (20:03→21:34)
--- NOTE | 2019-12-04 22:23 | PCM.NOTE ---
Date and Time: 12/04/192222 Subjective Assessment: Patient reports that he feels slightly better. He still has chest wall pain and swelling and cant move his R arm much. He reports that the swelling seems about the same. He has no other reported concerns at this time. - Review of Systems Constitutional: Fever, Fatigue Eyes: No Symptoms Ears, Nose, & Throat: No Symptoms Respiratory: No Cough, No Short Of Breath, No Wheezing Cardiac: Edema, No Chest Pain Abdominal/Gastrointestinal: No Abdominal Pain, No Nausea, No Vomiting, No Diarrhea, No Constipation Genitourinary Symptoms: No Symptoms Musculoskeletal: Joint Pain, Other (Chest wall pain R side. Axillae with pain and erythema warmth and edema. Decreased ROM R shoulder. ) Skin: Cellulitis Neurological: No Symptoms Psychological: No Anxiety, No Depression Hematologic/Lymphatic: No Symptoms Objective Exam General Appearance: moderate distress Neurologic Exam: alert, oriented x 3, agitation Skin Exam: warm, dry, other (erythema on anterior chest wall axillae area and R upper extremity. Patient has very large pores and commedomes in axillae. There is a palpable mass just under skin in R axillae) Wound Assessment: Skin/Wound Assessment Wound/Incision Assessment Start: 12/02/19 18:45 Text: Status: Active Freq: Q6H Protocol: Document 12/04/19 14:00 ISABELLA (Rec: 12/04/19 16:11 ISABELLA [id number]) Wound/Incision Assessment Right Chest Wound Assessment Shift Assessment Wound Type CELLULITIS Drainage Amount None General Appearance Reddened Comment Rt. arm from arm pit to wrist is red, swollen and painful. Ice pack applied to area. Wound Photo Photo Taken No Eye Exam: eyes nml inspection, No scleral icterus Ears, Nose, Throat Exam: moist mucous membranes Neck Exam: normal inspection Respiratory Exam: normal breath sounds, lungs clear, No chest tenderness, No diminished breath sounds, No wheezing Cardiovascular Exam: regular rate/rhythm, normal heart sounds, No murmur, No friction rub, No gallop Gastrointestinal/Abdomen Exam: soft, normal bowel sounds, No tenderness, No distention Extremity Exam: limited range of motion, swelling (Right axillae Right upper extremity and R lateral and anterior erythem edema. Decreased ROM right upper extremity), tenderness Back Exam: normal inspection OBJECTIVE DATA Vital Signs: Vital Signs - 24 hr Temp Pulse Resp BP Pulse Ox 12/04/19 19:40 98.2 F 110 H 20 120/62 97 12/04/19 16:00 99.2 F 112 H 16 117/67 97 12/04/19 12:00 98.5 F 120 H 18 146/76 98 12/04/19 07:42 98.2 F 103 H 18 112/65 96 12/04/19 04:00 97.7 F 85 16 109/62 97 12/04/19 00:00 97.3 F 89 18 106/72 97 Pain Assessment - Last Documented Pain Intensity 4 Pain Scale Used 0-10 Pain Scale Intake and Output: Intake & Output 12/02/19 12/03/19 12/04/19 12/05/19 11:59 11:59 11:59 11:59 Intake Total 550 4087 2819 Output Total 350 2100 Balance 200 4087 719 Weight 114.5 kg Lab Results: Accuchecks Date 12/04/19 Date 12/04/19 Date 12/04/19 Time 17:31 Time 12:00 Time 07:30 Accucheck Value: 262 Accucheck Value: 245 Accucheck Value: 229 Lab Results-Last 24 Hours 12/04/19 12/04/19 12/04/19 Range/Units 10:00 10:00 10:00 WBC 17.4 H (4.0-10.5) K/mm3 RBC 3.77 L (4.1-5.6) M/mm3 Hgb 12.0 L (12.5-18.0) gm/dl Hct 37.2 L (42-50) % MCV 98.7 (78-100) fl MCH 31.8 (26-32) pg MCHC 32.3 (32-36) g/dl RDW 13.2 (11.5-14.0) % Plt Count 256 (150-450) K/mm3 MPV 9.6 (7.5-11.0) fl Segmented Neutrophils 82 H (36.-66.) % Band Neutrophils 11 H (0.0-2.0) % Lymphocytes (Manual) 3 L (24-44) % Monocytes (Manual) 3 (0.0-12.0) % Eosinophils (Manual) 1 (0.00-3.0) % Platelet Estimate NORMAL (NORMAL) RBC Morphology NORMAL Sodium 134 L (137-145) mmol/L Potassium 4.6 (3.5-5.1) mmol/L Chloride 104 (98-107) mmol/L Carbon Dioxide 22 (22-30) mmol/L Anion Gap 12.7 (5-15) MEQ/L BUN 28 H (9-20) mg/dL Creatinine 1.13 (0.66-1.25) mg/dL Estimated GFR > 60.0 ML/MIN Glucose 243 H (74-106) mg/dL Calcium 8.3 L (8.4-10.2) mg/dL Total Bilirubin 0.50 (0.2-1.3) mg/dL AST 18 (17-59) U/L ALT 17 (0-50) U/L Alkaline Phosphatase 77 (38-126) U/L Troponin I (0.000-0.034) ng/mL Serum Total Protein 6.2 L (6.3-8.2) g/dL Albumin 3.3 L (3.5-5.0) g/dL Vancomycin Trough 11.84 (10-20) ug/mL 12/04/19 Range/Units 10:00 WBC (4.0-10.5) K/mm3 RBC (4.1-5.6) M/mm3 Hgb (12.5-18.0) gm/dl Hct (42-50) % MCV (78-100) fl MCH (26-32) pg MCHC (32-36) g/dl RDW (11.5-14.0) % Plt Count (150-450) K/mm3 MPV (7.5-11.0) fl Segmented Neutrophils (36.-66.) % Band Neutrophils (0.0-2.0) % Lymphocytes (Manual) (24-44) % Monocytes (Manual) (0.0-12.0) % Eosinophils (Manual) (0.00-3.0) % Platelet Estimate (NORMAL) RBC Morphology Sodium (137-145) mmol/L Potassium (3.5-5.1) mmol/L Chloride (98-107) mmol/L Carbon Dioxide (22-30) mmol/L Anion Gap (5-15) MEQ/L BUN (9-20) mg/dL Creatinine (0.66-1.25) mg/dL Estimated GFR ML/MIN Glucose (74-106) mg/dL Calcium (8.4-10.2) mg/dL Total Bilirubin (0.2-1.3) mg/dL AST (17-59) U/L ALT (0-50) U/L Alkaline Phosphatase (38-126) U/L Troponin I < 0.012 (0.000-0.034) ng/mL Serum Total Protein (6.3-8.2) g/dL Albumin (3.5-5.0) g/dL Vancomycin Trough (10-20) ug/mL Radiology Exams: Radiology Procedures Category Date Time Status CHEST WITHOUT CONTRAST [CT] Urgent Exams 12/03/19 21:03 Completed ECHO W/2D AND DOPPLER [US] Routine Exams 12/04/19 12:00 Taken HEAD WITHOUT CONTRAST [CT] Urgent Exams 12/04/19 11:44 Completed Multi-Disciplinary Progress Notes: Multi-Disciplinary Progress Notes 12/04/19 15:51 Case Management Note by Alejandra Alcantara NO CHANGE IN DC PLANS AT THIS TIME Initialized on 12/04/19 15:51 - END OF NOTE 12/03/19 22:36 Respiratory Note by Chandni Almanzar PT REFUSED TO WEAR CPAP HERE. Initialized on 12/03/19 22:36 - END OF NOTE Assessment/Plan (1) Sepsis Status: Acute Assessment & Plan: Patient symptoms have improved. He is no longer tachycardic. His BP has improved. Repeat lactic acid wnl. WBC trending down. Patient has had lower grade fevers. He will continue on IV antibiotics at this time. (2) Chest wall abscess Status: Acute Assessment & Plan: Patient had chest wall cellulitis but there was a palpable area just underneath the skin. Will get CT of chest wall to see if abscess present. 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 He is already on victoza. We discussed having to hold the metformin. His was going to bring his meds from home for his DM. Patient does not appear to eat diabetic diet. Code(s): E11.9 - TYPE 2 DIABETES MELLITUS WITHOUT COMPLICATIONS (4) SAHRA (obstructive sleep apnea) Status: Acute Assessment & Plan: Offered patient cpap while at hospital Code(s): G47.33 - OBSTRUCTIVE SLEEP APNEA (ADULT) (PEDIATRIC) (5) HTN (hypertension) Status: Acute Assessment & Plan: Routine home meds for bp Code(s): I10 - ESSENTIAL (PRIMARY) HYPERTENSION (6) Cellulitis of chest wall Status: Acute Assessment & Plan: Patient is on antibiotics for cellulitis. Will be getting additional imaging to assess the extent Code(s): L03.313 - CELLULITIS OF CHEST WALL (7) Tobacco abuse Status: Acute Assessment & Plan: Patient has a can of chew at bedside. He minimizes his tobacco use and declined nicotine patch Code(s): Z72.0 - TOBACCO USE
[2019-12-05] MEDS: Zosyn 3.375 GM Vial 3.375 GM in Sodium Chloride 100ML MINI-BAG PLUS 100 ML IV SCH ×4 (05:07→23:45)
--- NOTE | 2019-12-05 07:16 | PCM.NOTE ---
Date and Time: 12/05/19715 Subjective Assessment: 54 yr old male seen and examined today. Patient reports that overnight his R axillae area started to drain spontaneously. He reports that the ER physician had attempted to drain this area and had stuck him but reported no drainable abscess. Patient reports she did stick the area 5-6 times but nothing drained. Patient reports he is doing better than. He states that the wound drained all night and had copious amounts of purulent drainage. - Review of Systems Constitutional: Fever Eyes: No Symptoms Ears, Nose, & Throat: No Symptoms Respiratory: No Symptoms Cardiac: Edema Abdominal/Gastrointestinal: No Symptoms Genitourinary Symptoms: No Symptoms Musculoskeletal: Joint Pain, Joint Swelling, Other (R axillae drainage) Skin: Cellulitis Neurological: No Symptoms Psychological: No Symptoms Objective Exam General Appearance: moderate distress Neurologic Exam: alert, oriented x 3, agitation Skin Exam: warm, dry, other (Erythema and edema R chest wall R axillae and R upper extremity), No rash Wound Assessment: Skin/Wound Assessment Wound/Incision Assessment Start: 12/02/19 18:45 Text: Status: Active Freq: Q6H Protocol: Document 12/05/19 02:00 AW (Rec: 12/05/19 02:41 AW [id number]) Wound/Incision Assessment Right Chest Wound Assessment Shift Assessment Wound Type CELLULITIS Drainage Amount None General Appearance Reddened Comment Rt. arm from arm pit to wrist is red, swollen and painful. Open area with purulent drainage noted to right axilla . Area cleansed and ABD pad applied to absorb drainage. Wound culture sent. Wound Photo Photo Taken No Eye Exam: eyes nml inspection, No scleral icterus Ears, Nose, Throat Exam: moist mucous membranes Neck Exam: normal inspection Respiratory Exam: normal breath sounds, lungs clear, No chest tenderness, No respiratory distress, No diminished breath sounds, No wheezing Cardiovascular Exam: regular rate/rhythm, normal heart sounds, No murmur, No friction rub, No gallop Gastrointestinal/Abdomen Exam: soft, normal bowel sounds, No tenderness, No distention, No guarding, No rebound Extremity Exam: swelling, tenderness, other (R axillae drainage.) OBJECTIVE DATA Vital Signs: Vital Signs - 24 hr Temp Pulse Resp BP Pulse Ox 12/05/19 04:00 98.3 F 91 H 20 131/61 92 L 12/04/19 23:39 99.1 F 104 H 20 118/62 98 12/04/19 19:40 98.2 F 110 H 20 120/62 97 12/04/19 16:00 99.2 F 112 H 16 117/67 97 12/04/19 12:00 98.5 F 120 H 18 146/76 98 12/04/19 07:42 98.2 F 103 H 18 112/65 96 Oxygen-Last 24 hours Oxygen Flowrate (L/min)-RT 2 Pain Assessment - Last Documented Pain Intensity 4 Pain Scale Used 0-10 Pain Scale Intake and Output: Intake & Output 12/02/19 12/03/19 12/04/19 12/05/19 11:59 11:59 11:59 11:59 Intake Total 550 4087 4311 Output Total 350 2100 Balance 200 4087 2211 Weight 114.5 kg Lab Results: Accuchecks Date 12/04/19 Date 12/04/19 Date 12/04/19 Date 12/04/19 Time 22:00 Time 17:31 Time 12:00 Time 07:30 Accucheck Value: 254 Accucheck Value: 262 Accucheck Value: 245 Accucheck Value: 229 Lab Results-Last 24 Hours 12/04/19 12/04/19 12/04/19 Range/Units 10:00 10:00 10:00 WBC 17.4 H (4.0-10.5) K/mm3 RBC 3.77 L (4.1-5.6) M/mm3 Hgb 12.0 L (12.5-18.0) gm/dl Hct 37.2 L (42-50) % MCV 98.7 (78-100) fl MCH 31.8 (26-32) pg MCHC 32.3 (32-36) g/dl RDW 13.2 (11.5-14.0) % Plt Count 256 (150-450) K/mm3 MPV 9.6 (7.5-11.0) fl Segmented Neutrophils 82 H (36.-66.) % Band Neutrophils 11 H (0.0-2.0) % Lymphocytes (Manual) 3 L (24-44) % Monocytes (Manual) 3 (0.0-12.0) % Eosinophils (Manual) 1 (0.00-3.0) % Platelet Estimate NORMAL (NORMAL) RBC Morphology NORMAL Sodium 134 L (137-145) mmol/L Potassium 4.6 (3.5-5.1) mmol/L Chloride 104 (98-107) mmol/L Carbon Dioxide 22 (22-30) mmol/L Anion Gap 12.7 (5-15) MEQ/L BUN 28 H (9-20) mg/dL Creatinine 1.13 (0.66-1.25) mg/dL Estimated GFR > 60.0 ML/MIN Glucose 243 H (74-106) mg/dL Calcium 8.3 L (8.4-10.2) mg/dL Total Bilirubin 0.50 (0.2-1.3) mg/dL AST 18 (17-59) U/L ALT 17 (0-50) U/L Alkaline Phosphatase 77 (38-126) U/L Troponin I (0.000-0.034) ng/mL Serum Total Protein 6.2 L (6.3-8.2) g/dL Albumin 3.3 L (3.5-5.0) g/dL Vancomycin Trough 11.84 (10-20) ug/mL 12/04/19 Range/Units 10:00 WBC (4.0-10.5) K/mm3 RBC (4.1-5.6) M/mm3 Hgb (12.5-18.0) gm/dl Hct (42-50) % MCV (78-100) fl MCH (26-32) pg MCHC (32-36) g/dl RDW (11.5-14.0) % Plt Count (150-450) K/mm3 MPV (7.5-11.0) fl Segmented Neutrophils (36.-66.) % Band Neutrophils (0.0-2.0) % Lymphocytes (Manual) (24-44) % Monocytes (Manual) (0.0-12.0) % Eosinophils (Manual) (0.00-3.0) % Platelet Estimate (NORMAL) RBC Morphology Sodium (137-145) mmol/L Potassium (3.5-5.1) mmol/L Chloride (98-107) mmol/L Carbon Dioxide (22-30) mmol/L Anion Gap (5-15) MEQ/L BUN (9-20) mg/dL Creatinine (0.66-1.25) mg/dL Estimated GFR ML/MIN Glucose (74-106) mg/dL Calcium (8.4-10.2) mg/dL Total Bilirubin (0.2-1.3) mg/dL AST (17-59) U/L ALT (0-50) U/L Alkaline Phosphatase (38-126) U/L Troponin I < 0.012 (0.000-0.034) ng/mL Serum Total Protein (6.3-8.2) g/dL Albumin (3.5-5.0) g/dL Vancomycin Trough (10-20) ug/mL Radiology Exams: Radiology Procedures Category Date Time Status CHEST WITHOUT CONTRAST [CT] Urgent Exams 12/03/19 21:03 Completed ECHO W/2D AND DOPPLER [US] Routine Exams 12/04/19 12:00 Taken HEAD WITHOUT CONTRAST [CT] Urgent Exams 12/04/19 11:44 Completed Multi-Disciplinary Progress Notes: Multi-Disciplinary Progress Notes 12/04/19 15:51 Case Management Note by Alejandra Alcantara NO CHANGE IN DC PLANS AT THIS TIME Initialized on 12/04/19 15:51 - END OF NOTE Assessment/Plan (1) Chest wall abscess Status: Acute Assessment & Plan: I and D was performed. Patient gave verbal consent area was prepped and draped. 5 ml of lidocaine with epi was given. Small incision was extended from spontaneous one. Copious amounts or purulent drainage expressed. Wound was packed with 1/4 iodoform. Will continue with antibiotics. Ct read out cellulitis but this is clearly an abscess. Code(s): L02.213 - CUTANEOUS ABSCESS OF CHEST WALL (2) Sepsis Status: Acute Assessment & Plan: Symptoms have improved sepsis has mostly resolved (3) Diabetes Status: Acute Assessment & Plan: Patient is unwilling to take hospital insulin. His is supposed to bring in home meds. BS AC HS Code(s): E11.9 - TYPE 2 DIABETES MELLITUS WITHOUT COMPLICATIONS (4) SAHRA (obstructive sleep apnea) Status: Acute Assessment & Plan: Will continue to encourage patient to wear cpap Code(s): G47.33 - OBSTRUCTIVE SLEEP APNEA (ADULT) (PEDIATRIC) (5) HTN (hypertension) Status: Acute Assessment & Plan: Will continue routine home meds Code(s): I10 - ESSENTIAL (PRIMARY) HYPERTENSION (6) Tobacco abuse Status: Acute Assessment & Plan: continual use of tobacco products Code(s): Z72.0 - TOBACCO USE (7) Cellulitis of chest wall Status: Acute Assessment & Plan: Patient will continue on IV antibiotics Code(s): L03.313 - CELLULITIS OF CHEST WALL
[2019-12-05 07:34] LABS: Absolute Neutrophil Ct (ANC) 12.22 (1.4-6.9); BASOPHIL % 0.1 % (0.0-0.4); Basophil (Absolute #) 0.02 (0-0.4); Eosinophil % 2.2 % (0.00-5.0); Eosinophil (Absolute #) 0.32 (0-0.5); Hematocrit 31.9 % (42-50); Hemoglobin 10.4 gm/dl (12.5-18.0); Lymphocyte (Absolute #) 0.91 (1.0-4.6); Lymphocytes % 6.4 % (24.0-44.0); Mean Cell Volume 98.5 fl (78-100); Mean Corpuscular Hemoglobin 32.1 pg (26-32); Mean Corpuscular Hgb Concent. 32.6 g/dl (32-36); Mean Platelet Volume 9.4 fl (7.5-11.0); Monocyte (Absolute #) 0.79 (0.0-1.3); Monocytes % 5.5 % (0.0-12.0); Neutrophil % 85.8 % (36.0-66.0); Platelet Count 268 K/mm3 (150-450); Red Blood Count 3.24 M/mm3 (4.1-5.6); Red Cell Distribution Width 13.1 % (11.5-14.0); White Blood Count 14.3 K/mm3 (4.0-10.5)
[2019-12-05] MEDS: Sodium Chloride 0.9% 1000 ML 1,000 ML IV SCH ×2 (07:46→20:17)
[2019-12-05 07:52] LABS: ALBUMIN 2.8 g/dL (3.5-5.0); ALKALINE PHOSPHATASE 75 U/L (38-126); ANION GAP 9.9 MEQ/L (5-15); BLOOD UREA NITROGEN 21 mg/dL (9-20); CHLORIDE 108 mmol/L (98-107); Calcium 8.2 mg/dL (8.4-10.2); Carbon Dioxide 24 mmol/L (22-30); Creatinine 1 0.91 mg/dL (0.66-1.25); Glucose 252 mg/dL (74-106); Potassium 4.5 mmol/L (3.5-5.1); SGOT/AST 28 U/L (17-59); SGPT/ALT 25 U/L (0-50); SODIUM 137 mmol/L (137-145); Total Protein 5.6 g/dL (6.3-8.2)
[2019-12-05] MEDS: NEURONTIN 300 MG PO SCH ×3 (09:15→21:34)
[2019-12-05] MEDS: Glucotrol Xl 10 MG PO SCH ×2 (09:15→21:34)
[2019-12-05] MEDS: Protonix 40MG Tablet PO SCH (09:15)
[2019-12-05] MEDS: VOLTAREN 50 MG PO SCH ×2 (09:16→21:34)
[2019-12-05] MEDS: PLAVIX 75 MG Tablet PO SCH (09:16)
[2019-12-05] MEDS: VANCOMYCIN 1.5 GRAM/300 ML BAG 1.5 GM/300 ML PIGGYBACK IV SCH ×2 (09:19→21:35)
[2019-12-05] MEDS ORDERED: Xylocaine 2%-Epi 1:100,000 MDV IJ SCH (09:48)
[2019-12-05] MEDS ORDERED: MORPHINE SULFATE 2 MG INJ IV ONE (11:18)
[2019-12-05] MEDS: PATIENT OWN MEDICATION PO SCH ×2 (12:57→21:31)
--- NOTE | 2019-12-05 13:22 | XRAY ---
Indication: Pain and swelling following fall days ago. Comparison: None 3 view right elbow demonstrates medial surgical clips. No other bony, articular, or soft tissue abnormalities.
--- NOTE | 2019-12-05 13:24 | XRAY ---
Indication: Pain and swelling following fall days ago. Comparison: None 2 view right forearm demonstrates medial elbow surgical clips and distal ulnar artery calcifications. No other bony, articular, or soft tissue abnormalities.
--- NOTE | 2019-12-05 13:30 | XRAY ---
Indication: Right arm swelling. Two-dimensional sonogram and color Doppler imaging of the major venous vessels of the right upper extremity was performed. Comparison: None No thrombus seen of the visualized right internal jugular, subclavian, axillary, cephalic, brachial, basilic, radial, and ulnar veins. Veins demonstrate normal compressibility. Venous waveforms are normal. Impression: Right upper extremity negative for venous thrombosis.
--- NOTE | 2019-12-05 15:39 | ECHO ---
Transthoracic echocardiographic examination and color Doppler was done on 12/04/2019. INDICATION: Tachycardia. IMPRESSION: 1) NO DEFINITE REGIONAL WALL MOTION ABNORMALITY. ESTIMATED GLOBAL LEFT VENTRICULAR EJECTION FRACTION OF ABOUT 50 TO 60%. 2) LEFT ATRIAL ENLARGEMENT. 3) LEFT VENTRICULAR HYPERTROPHY. 4) TRACE MITRAL REGURGITATION. The left ventricle is visualized and demonstrated adequate motion of all the segments. Estimated global left ventricular ejection fraction around 50 to 60%. There is mild left ventricular hypertrophy. The mitral valve is seen and this opens adequately. There is trace mitral regurgitation. Left atrium is mildly enlarged. The aortic valve opens adequately. There is no significant gradient across the left ventricular outflow tract. The right side chambers are normal. There is trace tricuspid regurgitation.
[2019-12-05] MEDS: MORPHINE SULFATE 4 MG INJ IV PRN ×2 (15:57→20:17)
[2019-12-05] MEDS: Glucophage 500 MG PO SCH (17:13)
[2019-12-06] MEDS ORDERED: Zosyn 3.375 GM Vial IV ONE (05:41)
[2019-12-06] MEDS ORDERED: Sodium Chloride 100ML MINI-BAG PLUS 100 ML IV ONE (05:41)
[2019-12-06] MEDS: Zosyn 3.375 GM Vial 3.375 GM in Sodium Chloride 100ML MINI-BAG PLUS 100 ML IV SCH ×4 (05:46→23:10)
[2019-12-06] MEDS: Sodium Chloride 0.9% 1000 ML 1,000 ML IV SCH ×2 (07:21→18:34)
[2019-12-06] MEDS: Glucophage 500 MG PO SCH ×2 (07:42→17:59)
[2019-12-06] MEDS: MORPHINE SULFATE 4 MG INJ IV PRN ×3 (08:37→17:59)
[2019-12-06] MEDS: Glucotrol Xl 10 MG PO SCH ×2 (11:10→21:03)
[2019-12-06] MEDS: Protonix 40MG Tablet PO SCH (11:10)
[2019-12-06] MEDS: NEURONTIN 300 MG PO SCH ×3 (11:10→21:03)
[2019-12-06] MEDS: VOLTAREN 50 MG PO SCH ×2 (11:11→21:03)
[2019-12-06] MEDS: PLAVIX 75 MG Tablet PO SCH (11:11)
[2019-12-06] MEDS: VANCOMYCIN 1.5 GRAM/300 ML BAG 1.5 GM/300 ML PIGGYBACK IV SCH ×2 (11:11→21:04)
[2019-12-06] MEDS: PATIENT OWN MEDICATION PO SCH ×2 (11:17→21:09)
--- NOTE | 2019-12-06 20:20 | PCM.NOTE ---
Date and Time: 12/06/192019 Subjective Assessment: Patient seen and examined this am. Patient was once again agitated. He stated that the charge nurse accused him of smoking in his room and he stated that he did not smoke in his room and he did not appreciate being called a liar. Patient reports that feels better and would like to go home today. - Review of Systems Constitutional: No Fever Eyes: No Symptoms Ears, Nose, & Throat: No Symptoms Respiratory: No Cough, No Short Of Breath, No Wheezing Cardiac: Edema, No Chest Pain, No Palpitations Abdominal/Gastrointestinal: No Symptoms Genitourinary Symptoms: No Symptoms Musculoskeletal: Other (R shoulder pain erythema and swelling. R upper extremity pain and swelling. R sided chest wall pain and swelling. ) Skin: Cellulitis Neurological: No Symptoms, No Headache Psychological: Other (Agitation), No Anxiety, No Depression Objective Exam General Appearance: mild distress, obese Neurologic Exam: alert, agitation, No cooperative Skin Exam: other (R upper extremity, axillae and R sided chest wall erythema which is improving.) Wound Assessment: Skin/Wound Assessment Wound/Incision Assessment Start: 12/02/19 18:45 Text: Status: Active Freq: Q6H Protocol: Document 12/06/19 14:00 YUDI (Rec: 12/06/19 15:14 YUDI [id number]) Wound/Incision Assessment Right Chest Wound Assessment Shift Assessment Wound Type CELLULITIS Drainage Amount None Drainage Description Purulent Drainage Odor Mild Odor General Appearance Reddened Packing Type Gauze Packing Strips Comment Rt. arm from arm pit to wrist is red, swollen and painful. Open area (s/p I&D) with purulent drainage noted to right axilla. ABD pad applied to absorb drainage. Wound Photo Photo Taken No Eye Exam: eyes nml inspection, No scleral icterus Ears, Nose, Throat Exam: moist mucous membranes Respiratory Exam: normal breath sounds, chest tenderness, lungs clear, No respiratory distress, No diminished breath sounds, No wheezing Cardiovascular Exam: regular rate/rhythm, normal heart sounds, No murmur, No friction rub, No gallop Gastrointestinal/Abdomen Exam: soft, normal bowel sounds, No tenderness, No distention Extremity Exam: other (R axillae still draining but has significant decreased even with expression of the drainage. The drainage is more watery consistency. The swelling has decreased significantly. Patient has improved ROM and decreased pain.) Back Exam: normal inspection Male Genitalia Exam: deferred Rectal Exam: deferred OBJECTIVE DATA Vital Signs: Vital Signs - 24 hr Temp Pulse Resp BP Pulse Ox 12/06/19 19:33 98.9 F 96 H 21 160/66 98 12/06/19 17:00 98.7 F 89 18 167/89 96 12/06/19 13:00 98.8 F 97 H 18 148/59 97 12/06/19 12:00 98.8 F 96 H 18 170/93 95 12/06/19 07:34 96 H 18 170/93 95 12/06/19 00:00 98.8 F 100 H 21 140/78 92 L Pain Assessment - Last Documented Pain Intensity 10 Pain Scale Used 0-10 Pain Scale Intake and Output: Intake & Output 12/04/19 12/05/19 12/06/19 12/07/19 11:59 11:59 11:59 11:59 Intake Total 4087 4551 4660 1776 Output Total 2100 1000 Balance 4087 2451 3660 1776 Weight 114.5 kg Lab Results: Accuchecks Date 12/06/19 Date 12/06/19 Date 12/06/19 Time 16:30 Time 11:30 Time 07:30 Accucheck Value: 214 Accucheck Value: 278 Accucheck Value: 213 Accucheck Value: 311 Radiology Exams: Radiology Procedures Category Date Time Status ELBOW (2 VIEW) Stat Exams 12/05/19 12:35 Completed FOREARM Stat Exams 12/05/19 12:18 Completed VENOUS UNILAT/LIMITED EXTREMIT [US] Stat Exams 12/05/19 13:17 Completed Multi-Disciplinary Progress Notes: Multi-Disciplinary Progress Notes 12/06/19 11:51 Case Management Note by Alejandra Alcantara NO CHANGE IN DC PLANS AT THIS TIME, WILL CONTINUE TO FOLLOW FOR ANY NEEDS REGARDING WOUND Initialized on 12/06/19 11:51 - END OF NOTE Assessment/Plan (1) Sepsis Status: Acute Assessment & Plan: This has resolved. Patient's VS have remained stable. He will be discharged tomorrow. (2) Diabetes Status: Acute Assessment & Plan: Patient is refusing insulin so he not really receiving tx for DM Code(s): E11.9 - TYPE 2 DIABETES MELLITUS WITHOUT COMPLICATIONS (3) SAHRA (obstructive sleep apnea) Status: Acute Assessment & Plan: Patient has a cpap bedside. Code(s): G47.33 - OBSTRUCTIVE SLEEP APNEA (ADULT) (PEDIATRIC) (4) HTN (hypertension) Status: Acute Assessment & Plan: Will continue on routine meds Code(s): I10 - ESSENTIAL (PRIMARY) HYPERTENSION (5) Tobacco abuse Status: Acute Assessment & Plan: Charge nurse reported finding patient smoking in his room. Patient denies. Patient was seen personally by me out in the parking lot smoking when I drove into work this am. He was not interested in nicotine patch and stated she would take his cigarettes home. Code(s): Z72.0 - TOBACCO USE (6) Cellulitis of chest wall Status: Acute Code(s): L03.313 - CELLULITIS OF CHEST WALL (7) Chest wall abscess Status: Acute Assessment & Plan: Another I and D was performed this am. The area again was cleansed with hepacleanse. The old packing was removed. Lidocaine with epi was injected. The wound was then repacked with iodoform and dressed with a clean bandage. The drainage was more watery consistency and less in amount this am. This is improving. I initially discussed with patient that he could go home today. His pulled me aside to say she did not feel he was well enough yet but reports that they will fight if he finds out she said anything to me about it. I discussed concerns with patient who became upset and stated that he is now refusing to leave today. Patient meets criteria to stay in hospital one more night. He stated he is absolutely leaving tomorrow. Code(s): L02.213 - CUTANEOUS ABSCESS OF CHEST WALL
[2019-12-07] MEDS: Sodium Chloride 0.9% 1000 ML 1,000 ML IV SCH (01:22)
[2019-12-07] MEDS: Zosyn 3.375 GM Vial 3.375 GM in Sodium Chloride 100ML MINI-BAG PLUS 100 ML IV SCH ×2 (06:04→12:01)
[2019-12-07] MEDS: MORPHINE SULFATE 4 MG INJ IV PRN ×2 (06:31→12:06)
[2019-12-07 06:40] LABS: Hemoglobin 11.1 gm/dl (12.5-18.0); Mean Cell Volume 96.3 fl (78-100); Mean Corpuscular Hemoglobin 31.4 pg (26-32); Mean Corpuscular Hgb Concent. 32.6 g/dl (32-36); Mean Platelet Volume 8.9 fl (7.5-11.0); Platelet Count 343 K/mm3 (150-450); Red Blood Count 3.53 M/mm3 (4.1-5.6); Red Cell Distribution Width 13.4 % (11.5-14.0); White Blood Count 10.6 K/mm3 (4.0-10.5)
[2019-12-07 08:14] LABS: ANION GAP 9.4 MEQ/L (5-15); BLOOD UREA NITROGEN 9 mg/dL (9-20); CHLORIDE 107 mmol/L (98-107); Calcium 8.4 mg/dL (8.4-10.2); Carbon Dioxide 26 mmol/L (22-30); Creatinine 1 0.61 mg/dL (0.66-1.25); Glucose 188 mg/dL (74-106); Potassium 4.3 mmol/L (3.5-5.1); SODIUM 138 mmol/L (137-145)
[2019-12-07] MEDS ORDERED: XYLOCAINE 1% HCL 20 ML MDV IJ SCH (08:27)
[2019-12-07] MEDS: Glucophage 500 MG PO SCH (08:55)
[2019-12-07] MEDS: NEURONTIN 300 MG PO SCH (08:55)
[2019-12-07] MEDS: Protonix 40MG Tablet PO SCH (08:56)
[2019-12-07] MEDS: Glucotrol Xl 10 MG PO SCH (08:56)
[2019-12-07] MEDS: PLAVIX 75 MG Tablet PO SCH (08:56)
[2019-12-07] MEDS: VANCOMYCIN 1.5 GRAM/300 ML BAG 1.5 GM/300 ML PIGGYBACK IV SCH (08:59)
[2019-12-07] MEDS: VOLTAREN 50 MG PO SCH (09:16)
[2019-12-07] MEDS: PATIENT OWN MEDICATION PO SCH (09:17)
--- NOTE | 2019-12-07 10:27 | PCM.DS ---
Discharge Summary Date of Admission: 12/02/19 18:27 Date of Discharge: 12/07/2019 Admitting Physician: VIRAJ SAL Primary Care Provider: AZUL AMADO Allergies Allergies iodine Allergy (Verified 06/26/19 19:38) Sulfa (Sulfonamide Antibiotics) Allergy (Verified 12/02/19 18:57) sulfamethoxazole [From Bactrim] Allergy (Verified 06/26/19 19:38) trimethoprim [From Bactrim] Allergy (Verified 06/26/19 19:38) IV DYE Allergy (Uncoded 06/26/19 19:38) PLASTIC TAPE Allergy (Uncoded 06/26/19 19:38) Hospital Summary - Hospital Course Hospital Course: is a 54 year old male seen following ER admission for chest wall cellulitis and SIRS. Patient reports that 10-11 days ago he started with a knot in his right lateral chest wall area. He reports that although it was not painful he noticed that it started getting larger. He reports that on tuesday his R lateral chest wall started to hurt he had an episode where he lost consciousness and couldnt remember certain events of that day. He reports that it wasnt until tuesday night he finally went to the ER because he didnt feel well and he couldnt lift his R arm up. Patient was admitted to ICU. Patient was in the am found to be tachycardic and hypotensive and technically met sepsis criteria. Repeat lactic acid was wnl. He was bolused with fluid and his VS improved. Patient had been started on IV antibiotics in ER. Patient had repeat imaging done which showed chest wall cellulitis. Patient reported that the ER doctor attempted to perform needle aspiration but was unable to get anything out. On the second night of admission an area in the axillae opened up and spontaneously started draining on its own. Daily I and Ds were performed and patient started to have improvement of symptoms. The wound was packed one last time prior to discharge. Patient was deemed stable enough to be discharged and follow up with PCP on Tuesday for wound evaluation and repacking. - Vitals & Intake/Output Vital Signs: Vital Signs Temperature 98.7 F 12/07/19 03:00 Pulse Rate 96 H 12/07/19 07:00 Respiratory Rate 20 12/07/19 07:00 Blood Pressure 164/68 12/07/19 07:00 O2 Sat by Pulse Oximetry 95 12/07/19 07:00 Intake & Output: Intake & Output 12/04/19 12/05/19 12/06/19 12/07/19 11:59 11:59 11:59 11:59 Intake Total 4087 4551 4660 2816 Output Total 2100 1000 Balance 4087 4029 1239 2819 Weight 114.5 kg - Lab Result Diagrams: 12/07/19 06:26 12/07/19 06:26 Lab Results-Last 24 Hrs: Accuchecks Date 12/06/19 Date 12/06/19 Date 12/06/19 Time 22:46 Time 16:30 Time 11:30 Accucheck Value: 214 Accucheck Value: 278 Lab Results-Last 24 Hours 12/07/19 12/07/19 Range/Units 06:26 06:26 WBC 10.6 H (4.0-10.5) K/mm3 RBC 3.53 L (4.1-5.6) M/mm3 Hgb 11.1 L (12.5-18.0) gm/dl Hct 34.0 L (42-50) % MCV 96.3 (78-100) fl MCH 31.4 (26-32) pg MCHC 32.6 (32-36) g/dl RDW 13.4 (11.5-14.0) % Plt Count 343 (150-450) K/mm3 MPV 8.9 (7.5-11.0) fl Sodium 138 (137-145) mmol/L Potassium 4.3 (3.5-5.1) mmol/L Chloride 107 (98-107) mmol/L Carbon Dioxide 26 (22-30) mmol/L Anion Gap 9.4 (5-15) MEQ/L BUN 9 (9-20) mg/dL Creatinine 0.61 L (0.66-1.25) mg/dL Estimated GFR > 60.0 ML/MIN Glucose 188 H (74-106) mg/dL Calcium 8.4 (8.4-10.2) mg/dL Micro Results-Entire Visit: Microbiology 12/02/19 16:15 Blood Culture Gram Stain - Final Blood Not Reportable Blood Culture - Final NO GROWTH 12/04/19 19:45 Abscess Culture - Final Axillary - Right Staphylococcus Aureus Accuchecks Date 12/06/19 Date 12/06/19 Date 12/06/19 Time 22:46 Time 16:30 Time 11:30 Accucheck Value: 214 Accucheck Value: 278 - Radiology Exams Ordered Rad Exams-Entire Visit: Radiology Procedures Category Date Time Status ELBOW (2 VIEW) Stat Exams 12/05/19 12:35 Completed FOREARM Stat Exams 12/05/19 12:18 Completed VENOUS UNILAT/LIMITED EXTREMIT [US] Stat Exams 12/05/19 13:17 Completed - Procedures and Test Procedures and Tests throughout Hospitalization: Therapy Orders & Screens 12/03/19 10:03 EKG ROUTINE Comment: Diagnosis: right chest wall cellulitis, SIRS 12/03/19 21:20 Respiratory Therapy Consult ONCE Comment: Reason For Exam: Patient has SAHRA and needs CPAP machine Diagnosis: right chest wall cellulitis, SIRS Discharge Exam General Appearance: mild distress Neurologic Exam: alert, oriented x 3, agitation, No cooperative, No normal mo od/affect Eye Exam: eyes nml inspection, No scleral icterus Ears, Nose, Throat Exam: moist mucous membranes Respiratory Exam: normal breath sounds, chest tenderness, lungs clear, No respiratory distress, No diminished breath sounds, No wheezing Cardiovascular Exam: regular rate/rhythm, normal heart sounds, No murmur, No friction rub, No gallop Gastrointestinal/Abdomen Exam: soft, normal bowel sounds, No tenderness, No distention Male Genitalia Exam: deferred Rectal Exam: deferred Back Exam: normal inspection Extremity Exam: other (R shoulder with erythema edema and decreaesed but still improved ROM. I and D was performed and the axilla was draining watery and less purulent blood tinged drainage. Previous packing was removed and wound was repacked. Wound was then dressed.) Wound Assessment: Skin/Wound Assessment Wound/Incision Assessment Start: 12/02/19 18:45 Text: Status: Active Freq: Q6H Protocol: Document 12/07/19 02:00 ST (Rec: 12/07/19 05:14 ST [id number]) Wound/Incision Assessment Right Chest Wound Assessment Shift Assessment Wound Type CELLULITIS Drainage Amount None Drainage Description Purulent Drainage Odor Mild Odor General Appearance Reddened Packing Type Gauze Packing Strips Comment Rt. arm from arm pit to wrist is red, swollen and painful. Open area (s/p I&D) with purulent drainage noted to right axilla. ABD pad applied to absorb drainage. Wound Photo Photo Taken No Final Diagnosis/Problem List - Final Discharge Diagnosis/Problem (1) Sepsis Status: Acute Assessment & Plan: Resolved. Patient will go home on Zyvox. He has pain medication at home for pain. (2) Diabetes Status: Acute Assessment & Plan: Patient will resume his DM routine at home. Code(s): E11.9 - TYPE 2 DIABETES MELLITUS WITHOUT COMPLICATIONS (3) SAHRA (obstructive sleep apnea) Status: Acute Assessment & Plan: Will encourage patient to wear cpap Code(s): G47.33 - OBSTRUCTIVE SLEEP APNEA (ADULT) (PEDIATRIC) (4) HTN (hypertension) Status: Acute Assessment & Plan: Will continue routine home meds Code(s): I10 - ESSENTIAL (PRIMARY) HYPERTENSION (5) Tobacco abuse Status: Acute Assessment & Plan: Patient minimized his tobacco use he had both chew and cigarettes was seen by nursing staff and myself smoking during admission. He became agitated and aggressive when talking about it. Code(s): Z72.0 - TOBACCO USE (6) Cellulitis of chest wall Status: Acute Assessment & Plan: Resolving. Will go home on antibiotics and follow up with PCP Code(s): L03.313 - CELLULITIS OF CHEST WALL (7) Chest wall abscess Status: Acute Assessment & Plan: Patient will need to have this wound repacked on Tuesday. I did discuss with him if he started feeling that it was draining more or had fevers to contact me as I am flight test data acquisition technician this weekend and can repack it after rounding at the hospital Code(s): L02.213 - CUTANEOUS ABSCESS OF CHEST WALL - Discharge Disposition: Home, Self-Care Condition: Stable Prescriptions: New Linezolid [Zyvox] 600 mg PO Q12H #28 tablet Continue Testosterone Cypionate 200 mg IM UD Diclofenac Sodium 75 mg PO 0600,1800 Clopidogrel Bisulfate [Clopidogrel] 75 mg PO 0600 Tapentadol HCl [Nucynta ER] 250 mg PO 0600,1800 Gabapentin [Gralise] 600 mg PO 0600,1200,1800 Metformin HCl 1,000 mg PO 0600,1800 Glipizide Xl 10 mg [Glucotrol Xl 10 MG] 10 mg PO 0600,1800 Liraglutide [Victoza 2-Zeb] 1.8 mg SQ 0600 Tapentadol HCl [Nucynta ER] 250 mg PO 0600,1800 No Action Omeprazole 20 mg PO 0600 Additional Instructions: Patient has R axilla packing present which will need to be removed and most likely require repacking. Patient was instructed to return to ER if he started to have fevers, worsening pain or was feeling ill Follow up with: SAMI ALLEN [ACTIVE STAFF] - 12/10/19 9:45 am Forms: Discharge Instructions
[2019-12-07 12:00] VITALS: BP 163/78; PULSE 89; O2SAT 97
== END 2019-12-07 12:49 | disposition home or self-care (01) | DRG 872 ==
LOC: ED 15:41 → ICU 18:27 → OBSVTOIN 18:27
PROVIDERS: ADMIT Family Medicine; ATTEND Family Medicine
DX: A41.9 Sepsis, unspecified organism (principal); L03.313 Cellulitis of chest wall; L03.113 Cellulitis of right upper limb; L02.213 Cutaneous abscess of chest wall; E11.9 Type 2 diabetes mellitus without complications; G47.33 Obstructive sleep apnea (adult) (pediatric); M79.601 Pain in right arm; I10 Essential (primary) hypertension; Z72.0 Tobacco use; Z79.899 Other long term (current) drug therapy
CPT/HCPCS: 36000; 36415; 70450; 71046; 71250; 73070; 73090; 74176; 80048; 80053; 80202; 81001; 82962; 83036; 83605; 84484; 85025; 85027; 87040; 87070; 87077; 87186; 93005; 93306; 93971; 96360; 96365; 96368; 99285; J2270; J3370; A9270-GY

== ENCOUNTER 2019-12-09 07:56 | Observation (INO) | payer MEDICARE ==
[2019-12-09 10:28] LABS: Hematocrit 36.9 % (42-50); Hemoglobin 12.1 gm/dl (12.5-18.0); Mean Cell Volume 94.9 fl (78-100); Mean Corpuscular Hemoglobin 31.1 pg (26-32); Mean Corpuscular Hgb Concent. 32.8 g/dl (32-36); Platelet Count 466 K/mm3 (150-450); Red Blood Count 3.89 M/mm3 (4.1-5.6); Red Cell Distribution Width 13.2 % (11.5-14.0); White Blood Count 8.6 K/mm3 (4.0-10.5)
[2019-12-09] MEDS: MORPHINE SULFATE 2 MG INJ IV PRN ×2 (10:28→17:27)
[2019-12-09] MEDS ORDERED: Xylocaine 2%-Epi 1:100,000 MDV IJ ONE (10:31)
[2019-12-09 10:40] LABS: ALBUMIN 3.3 g/dL (3.5-5.0); ALKALINE PHOSPHATASE 85 U/L (38-126); ANION GAP 10.6 MEQ/L (5-15); BLOOD UREA NITROGEN 11 mg/dL (9-20); CHLORIDE 102 mmol/L (98-107); Calcium 8.9 mg/dL (8.4-10.2); Carbon Dioxide 27 mmol/L (22-30); Creatinine 1 0.74 mg/dL (0.66-1.25); Glucose 364 mg/dL (74-106); Potassium 4.2 mmol/L (3.5-5.1); SGOT/AST 71 U/L (17-59); SGPT/ALT 165 U/L (0-50); SODIUM 136 mmol/L (137-145); Total Protein 6.4 g/dL (6.3-8.2)
[2019-12-09] MEDS: Zyvox 600 MG IV PREMIX*** 300 ML IV SCH ×2 (12:07→21:15)
[2019-12-09 13:10] LABS: Lymphocytes 21 % (24-44); Monocyte 1 % (0.0-12.0); Neutrophils 78 % (36.-66.); Platelet Estimate NORMAL (NORMAL); Total Cells Counted 100
[2019-12-09] MEDS: Glucophage 500 MG PO SCH (17:32)
[2019-12-09] MEDS: Glucotrol Xl 10 MG PO SCH (17:33)
[2019-12-09] MEDS: NEURONTIN 300 MG PO SCH (17:33)
[2019-12-09] MEDS: VOLTAREN 50 MG PO SCH (17:39)
[2019-12-09] MEDS ORDERED: NON-FORMULARY ITEM (Diclofenac Sodium [Diclofenac Sodium] 75 MG) PO SCH (18:00)
[2019-12-09] MEDS ORDERED: GABAPENTIN 600 MG PO SCH (18:00)
--- NOTE | 2019-12-09 18:22 | PCM.SSS ---
History of Present Illness - Chief Complaint Chief Complaint: Right Axillary Abscess Date: 12/09/19 History of Present Illness: is a 54 year old male direct admitted this am following recent admission for R axillae abscess. called me last evening and reported that patient hadnt moved much that day and had stated he does not feel well. She reports that she is concerned as this is a contagious infection and she recently underwent surgery herself and wanted to make sure how this infection would be transmitted. Patient reports he feels his R axillae is doing better. There has been less drainage and reports that some of the packing came out and that she removed it. Patient states he let the area drain while he was in the shower. Patient reports the swelling near his elbow is concerning for him. He reports his is able to move the arm without difficulty and without extreme pain. He has been taking his medications as directed. He reports regardless of this admission he is leaving at 8am. - Review of Systems Constitutional: Other (Patient reports he still doesnt feel well. ), No Fever Eyes: No Symptoms Ears, Nose, & Throat: No Symptoms Respiratory: No Cough, No Short Of Breath, No Wheezing Cardiac: Edema, No Chest Pain Abdominal/Gastrointestinal: No Abdominal Pain, No Nausea, No Vomiting, No Diarrhea, No Constipation Genitourinary Symptoms: No Symptoms Musculoskeletal: Other (R axillae with drainage erythema and swelling R elbow with slight erythema and swelling. Improved ROM R shoulder) Skin: Cellulitis (R lateral chest wall cellulitis and R elbow) Neurological: No Symptoms Psychological: Mood Changes, Other (Patient and have been fighting ), No Alcohol Abuse, No Drug Abuse Endocrine: No Symptoms Hematologic/Lymphatic: No Symptoms Medications & Allergies Home Medications: Home Medication List Testosterone Cypionate 200 mg IM UD 10/13/17 [History Confirmed 12/09/19] Clopidogrel Bisulfate [Clopidogrel] 75 mg PO 0600 12/02/19 [History Confirmed 12/09/19] Diclofenac Sodium 75 mg PO 0600,1800 12/02/19 [History Confirmed 12/09/19] Gabapentin [Gralise] 600 mg PO 0600,1200,1800 12/02/19 [History Confirmed 12/09/19] Glipizide Xl 10 mg [Glucotrol Xl 10 MG] 10 mg PO 0600,1800 12/02/19 [History Confirmed 12/09/19] Metformin HCl 1,000 mg PO 0600,1800 12/02/19 [History Confirmed 12/09/19] Tapentadol HCl [Nucynta ER] 250 mg PO 0600,1800 12/02/19 [History Confirmed 12/09/19] Liraglutide [Victoza 2-Zeb] 1.8 mg SQ 0600 12/03/19 [History Confirmed 12/09/19] Tapentadol HCl [Nucynta ER] 250 mg PO 0600,1800 12/04/19 [History Confirmed ] Linezolid [Zyvox] 600 mg PO Q12H #28 tablet 12/07/19 [Rx Confirmed 12/09/19] Omeprazole 20 mg PO 0600 12/09/19 [History Confirmed 12/09/19] Allergies/Adverse Reactions: Allergies Allergy/AdvReac Type Severity Reaction Status Date / Time iodine Allergy Verified 06/26/19 19:38 Sulfa (Sulfonamide Allergy Verified 12/02/19 18:57 Antibiotics) sulfamethoxazole Allergy Verified 06/26/19 19:38 [From Bactrim] trimethoprim [From Bactrim] Allergy Verified 06/26/19 19:38 IV DYE Allergy Uncoded 06/26/19 19:38 PLASTIC TAPE Allergy Uncoded 06/26/19 19:38 - Past Medical History Past Medical History: Yes Neurological History: Peripheral Neuropathy ENT History: No Pertinent History Cardiac History: Peripheral Vascular Disease Respiratory History: Sleep Apnea Endocrine Medical History: Diabetes Type II Musculoskelatal History: No Pertinent History GI Medical History: No Pertinent History History: No Pertinent History Pyscho-Social History: No Pertinent History Male Reproductive Disorders: No Pertinent History Comment: PT IS NIDDM, scrotal sac removed for a history of a spider bite that resulted in gangrene as stated per pt.abscess to right axilla - Past Surgical History Past Surgical History: Yes Neuro Surgical History: No Pertinent History Cardiac History: Vascular Surgery Respiratory Surgery: No Pertinent History GI Surgical History: No Pertinent History Genitourinary Surgical Hx: No Pertinent History Musculskeletal Surgical Hx: Joint Replacement, Orthopedic Surgery Male Surgical History: No Pertinent History Other Surgical History: SCROTOM REMOVED AND REBUILT, RT KNEE REPLACEMENT, angioplasty to left leg - Social History Smoking Status: Current every day smoker How long have you smoked: 40 years Exposure to second hand smoke: Yes Alcohol: None Drug Use: none - Physical Exam Vital Signs: Vital Signs - 24 hr Temp Pulse Resp BP Pulse Ox 12/09/19 16:00 98.4 F 88 18 182/81 96 12/09/19 11:01 98.8 F 95 H 18 190/86 97 General Appearance: mild distress, obese, other (Patient looks much better than at discharge two days ago.) Neurologic Exam: alert, oriented x 3, cooperative, agitation, No confusion Eye Exam: eyes nml inspection Ears, Nose, Throat Exam: moist mucous membranes Neck Exam: normal inspection Respiratory Exam: normal breath sounds, chest tenderness, No lungs clear, No respiratory distress, No diminished breath sounds, No crackles/rales, No wheezing Cardiovascular Exam: regular rate/rhythm, normal heart sounds, No murmur, No friction rub, No gallop Gastrointestinal/Abdomen Exam: soft, normal bowel sounds, No tenderness, No distention, No mass, No guarding Extremity Exam: inflammation, joint swelling, limited range of motion (Improved range of motion today with R shoulder), tenderness, other (Patient's R upper extremity has swelling around elbow joint. R axillae abcess that initially had packing but was redressed during exam. Scant drainage and purulent drainage could barely be expressed today as compared to last week where copious purulent drainage was continually present.) Skin Exam: normal color, warm, dry, other (Lateral wall cellulitis R axillae and R elbow continue to have erythema but this has improved since two days ago.) Wound Assessment: Skin/Wound Assessment Wound/Incision Assessment Start: 12/09/19 11:27 Text: Status: Active Freq: Q6H Protocol: Document 12/09/19 12:00 BA (Rec: 12/09/19 12:22 BA [id number]) Wound/Incision Assessment Right Upper Arm Wound Assessment Shift Assessment Wound Type abcess Wound Stage Non Pressure Wound Dressing Status Dry & Intact Drainage Amount None General Appearance Clean/Dry Comment per Dr Franks. See Dr Franks notes Wound Photo Photo Taken No Results - Labs Lab/Micro Results: Lab Results-Last 24 Hours 12/09/19 12/09/19 12/09/19 Range/Units 05:00 10:10 10:10 WBC 8.6 (4.0-10.5) K/mm3 RBC 3.89 L (4.1-5.6) M/mm3 Hgb 12.1 L (12.5-18.0) gm/dl Hct 36.9 L (42-50) % MCV 94.9 (78-100) fl MCH 31.1 (26-32) pg MCHC 32.8 (32-36) g/dl RDW 13.2 (11.5-14.0) % Plt Count 466 H (150-450) K/mm3 MPV 9.0 (7.5-11.0) fl Segmented Neutrophils 78 H (36.-66.) % Lymphocytes (Manual) 21 L (24-44) % Monocytes (Manual) 1 (0.0-12.0) % Platelet Estimate NORMAL (NORMAL) RBC Morphology NORMAL Sodium 136 L (137-145) mmol/L Potassium 4.2 (3.5-5.1) mmol/L Chloride 102 (98-107) mmol/L Carbon Dioxide 27 (22-30) mmol/L Anion Gap 10.6 (5-15) MEQ/L BUN 11 (9-20) mg/dL Creatinine 0.74 (0.66-1.25) mg/dL Estimated GFR > 60.0 ML/MIN Glucose 364 H (74-106) mg/dL Lactic Acid 1.1 (0.4-2.0) Calcium 8.9 (8.4-10.2) mg/dL Total Bilirubin 0.40 (0.2-1.3) mg/dL AST 71 H (17-59) U/L ALT 165 H (0-50) U/L Alkaline Phosphatase 85 (38-126) U/L Serum Total Protein 6.4 (6.3-8.2) g/dL Albumin 3.3 L (3.5-5.0) g/dL Assessment/Plan (1) Chest wall abscess Current Visit: No Status: Acute Assessment & Plan: Patient has chest wall abscess/ R axillae abscess. He was discharged on tuesday and reported last night arm looked worse and he as not moving much out of his chair. I told them I could readmit him and restart IV antibiotics and repack the wound. Patient initially did not want to come in sat night so agreed to tuesday morning. His arm and chest wall looked much better. No fevers since tue/. His WBC completely normal. He was agreeable to approx 24 hours and then needed discharged by 8 am. Scant drainage if any. Repacked the wound with iodoform. Patient reports hx of iodine allergy which I think his is to contrast. He has tolerated the iodoform well and would continue with this tx. Patient was restarted on IV linezolid. He will restart his oral medication at home. He as given order for prn morphine if needed. Code(s): L02.213 - CUTANEOUS ABSCESS OF CHEST WALL (2) Cellulitis of chest wall Current Visit: No Status: Acute Code(s): L03.313 - CELLULITIS OF CHEST WALL (3) Diabetes Current Visit: No Status: Acute Assessment & Plan: Home meds for DM and BS ac/hs. Ordered diabetic diet Code(s): E11.9 - TYPE 2 DIABETES MELLITUS WITHOUT COMPLICATIONS (4) HTN (hypertension) Current Visit: No Status: Acute Assessment & Plan: Will resume home meds Code(s): I10 - ESSENTIAL (PRIMARY) HYPERTENSION (5) SAHRA (obstructive sleep apnea) Current Visit: No Status: Acute Assessment & Plan: Hx of SAHRA. Patient will be offered cpap Code(s): G47.33 - OBSTRUCTIVE SLEEP APNEA (ADULT) (PEDIATRIC) (6) Tobacco abuse Current Visit: No Status: Acute Assessment & Plan: Last admission there were issues with patient apparently found smoking in his room which he denies. He had chewing tobacco as well last admission. I offered nicotine patch which he declined Code(s): Z72.0 - TOBACCO USE Hospital Summary - Hospital Course Hospital Course: Patient has chest wall abscess/ R axillae abscess. He was discharged on tuesday and reported last night arm looked worse and he as not moving much out of his chair. I told them I could readmit him and restart IV antibiotics and repack the wound. Patient initially did not want to come in sat night so agreed to tuesday morning. His arm and chest wall looked much better. No fevers since tue/. His WBC completely normal. He was agreeable to be admitted for approx 24 hours and then needed discharged by 8 am. Wound was repacked with iodoform. Patient reports hx of iodine allergy which I think is to contrast. He has tolerated the iodoform well and would continue with this tx. Patient was restarted on IV linezolid. He will restart his oral medication at home. He was given order for prn morphine if needed only while in hospital and will restart his nucynta as outpatient - Vitals & Intake/Output Vital Signs: Vital Signs Temperature 98.4 F 12/09/19 16:00 Pulse Rate 88 12/09/19 16:00 Respiratory Rate 18 12/09/19 16:00 Blood Pressure 182/81 12/09/19 16:00 O2 Sat by Pulse Oximetry 96 12/09/19 16:00 Intake & Output: Intake & Output 12/07/19 12/08/19 12/09/19 12/10/19 11:59 11:59 11:59 11:59 Intake Total 1151 Balance 1151 Weight 116.1 kg - Lab Result Diagrams: 12/09/19 10:10 12/09/19 05:00 Lab Results-Last 24 Hrs: Lab Results-Last 24 Hours 12/09/19 12/09/19 12/09/19 Range/Units 05:00 10:10 10:10 WBC 8.6 (4.0-10.5) K/mm3 RBC 3.89 L (4.1-5.6) M/mm3 Hgb 12.1 L (12.5-18.0) gm/dl Hct 36.9 L (42-50) % MCV 94.9 (78-100) fl MCH 31.1 (26-32) pg MCHC 32.8 (32-36) g/dl RDW 13.2 (11.5-14.0) % Plt Count 466 H (150-450) K/mm3 MPV 9.0 (7.5-11.0) fl Segmented Neutrophils 78 H (36.-66.) % Lymphocytes (Manual) 21 L (24-44) % Monocytes (Manual) 1 (0.0-12.0) % Platelet Estimate NORMAL (NORMAL) RBC Morphology NORMAL Sodium 136 L (137-145) mmol/L Potassium 4.2 (3.5-5.1) mmol/L Chloride 102 (98-107) mmol/L Carbon Dioxide 27 (22-30) mmol/L Anion Gap 10.6 (5-15) MEQ/L BUN 11 (9-20) mg/dL Creatinine 0.74 (0.66-1.25) mg/dL Estimated GFR > 60.0 ML/MIN Glucose 364 H (74-106) mg/dL Lactic Acid 1.1 (0.4-2.0) Calcium 8.9 (8.4-10.2) mg/dL Total Bilirubin 0.40 (0.2-1.3) mg/dL AST 71 H (17-59) U/L ALT 165 H (0-50) U/L Alkaline Phosphatase 85 (38-126) U/L Serum Total Protein 6.4 (6.3-8.2) g/dL Albumin 3.3 L (3.5-5.0) g/dL - Procedures and Test Procedures and Tests throughout Hospitalization: Therapy Orders & Screens 12/09/19 11:27 Smoking Cessation Education ONCE Comment: Diagnosis: Right Axillary Abscess Smoking Status: Current every day smoker How long have you smoked: 40 years Have you smoked in the past 12 months: Yes Do you dip or chew tobacco: Yes If,Former Smoker,when did you quit: 2 weeks ago - Discharge Disposition: Home, Self-Care Condition: Stable Prescriptions: Continue Testosterone Cypionate 200 mg IM UD Diclofenac Sodium 75 mg PO 0600,1800 Clopidogrel Bisulfate [Clopidogrel] 75 mg PO 0600 Tapentadol HCl [Nucynta ER] 250 mg PO 0600,1800 Gabapentin [Gralise] 600 mg PO 0600,1200,1800 Metformin HCl 1,000 mg PO 0600,1800 Glipizide Xl 10 mg [Glucotrol Xl 10 MG] 10 mg PO 0600,1800 Liraglutide [Victoza 2-Zeb] 1.8 mg SQ 0600 Tapentadol HCl [Nucynta ER] 250 mg PO 0600,1800 Linezolid [Zyvox] 600 mg PO Q12H #28 tablet Omeprazole 20 mg PO 0600 Additional Instructions: Discharge by 0800 so that patient can go to appt with Dr. Slater on 12/10/19. Follow up with: SAMI SLATER [ACTIVE STAFF] - 12/10/19 9:30 am Forms: Discharge Instructions
[2019-12-10] MEDS ORDERED: NON-FORMULARY ITEM (Omeprazole [Omeprazole] 20 MG) PO SCH (06:00)
[2019-12-10] MEDS ORDERED: Protonix 40MG Tablet PO SCH (06:00)
[2019-12-10] MEDS ORDERED: PLAVIX 75 MG Tablet PO SCH (06:00)
[2019-12-10] MEDS: Glucophage 500 MG PO SCH (06:01)
[2019-12-10] MEDS: NEURONTIN 300 MG PO SCH (06:01)
[2019-12-10] MEDS: Glucotrol Xl 10 MG PO SCH (06:02)
[2019-12-10] MEDS: VOLTAREN 50 MG PO SCH (06:03)
[2019-12-10 08:10] VITALS: BP 162/75; PULSE 96; O2SAT 95
--- NOTE | 2019-12-10 10:59 | SSS ---
DISCHARGE DIAGNOSES: 1) RIGHT AXILLARY ABSCESS. 2) DIABETES MELLITUS TYPE II. HOSPITAL COURSE: The patient is a 54 year old white male patient with axillary abscess that has already been incised and drained and is actually looking quite good. He has been on oral antibiotics. He was seen in the emergency room and admitted to the hospital for continued IV antibiotics although it actually looks quite good. There is no redness or swelling around it. There is no more drainage. The wound looks nice and pink. He does have a lymph node in the arm that is still somewhat aggravated but otherwise he looks quite good and is obviously ready for discharge back home again to continue his oral antibiotics. PHYSICAL EXAMINATION: Revealed a well-nourished, well-developed, somewhat obese 54 year old white male patient in no obvious distress. HEENT: Normocephalic, atraumatic. Pupils equal round reactive to light. Extraocular movements intact. Oropharynx is pink and moist. NECK: Supple without lymphadenopathy, thyromegaly or JVD. CHEST: Clear to auscultation. HEART: Regular rate and rhythm. ABDOMEN: Soft. No palpable masses. EXTREMITIES: Without cyanosis, clubbing or edema. NEUROLOGIC: The patient is alert and oriented x3. LAB DATA AND TESTS: His white count 8,600, hemoglobin 12.1, PLT count 466,000. There is minimal left shift with 78 neutrophils. He had metabolic panel showing his sugar to be 364, BUN 11, creatinine 0.74. Electrolytes essentially normal. The liver enzymes were slightly elevated with AST 71, total bilirubin 0.4, lactic acid 1.1. The patient is felt to be ready for discharge home. He will continue his oral antibiotics. He had an appointment to see me this morning in the office but we will have him follow up in the next week. He needs no further treatment for this at this time.
== END 2019-12-10 08:30 | disposition home or self-care (01) ==
LOC: MED SURG 09:20
PROVIDERS: ADMIT Family Medicine; ATTEND Family Medicine
DX: L02.411 Cutaneous abscess of right axilla (principal); L03.313 Cellulitis of chest wall; E11.9 Type 2 diabetes mellitus without complications; I10 Essential (primary) hypertension; G47.33 Obstructive sleep apnea (adult) (pediatric); Z79.899 Other long term (current) drug therapy; Z72.0 Tobacco use
CPT/HCPCS: 36415; 80053; 82962; 83605; 85025; G0378; J2020; J2270; A9270-GY

== ENCOUNTER 2020-01-03 13:08 | Emergency (ER) | payer MEDICARE ==
--- NOTE | 2020-01-03 13:44 | ERPHSYRPT ---
- History of Present Illness Source: patient Exam Limitations: no limitations Patient Subjective Stated Complaint: pt for dizziness, he states its like he is unsteady, and has been that way since he fell 32 inches off a ladder 2 weeks ago , he has a ct of head a week ago that was negitve, co headache to front, some nausea off and on. Triage Nursing Assessment: pt walked in, with face mask half on, pt refused to get undressed. he is aggitated, and is not cooperative with staff, alert, resp easy, skin w/d/p. moves all ext well, Physician History: 54 yo wm w dizziness after falling off off 2nd step of 6ft ladder 2 wks ago. Pt had a neg CT scan a little over a week ago. He has a mild frontal KERNS but denies focal weakness/fever/dyspnea/CP/N/V /D/melena/hematochezia/dysuria/hematuria/coryza/cough. Time of Onset/Last Time Seen Normal: 2wks s/p fall Timing/Duration: other (2wks ago) Severity: moderate Character of Deficits: none Deficits: off balance Baseline/Normal Cognition: alert oriented x 3 Current Cognition: alert oriented x 3 Associated Symptoms: trouble walking, No confusion, No fatigue, No fever, No chills, No loss of consciousness, No nausea, No vomiting, No weakness, No insomnia, No muscle spasms, No numbness/tingling in legs/feet, No paresthesia, No ringing in ears, No seizures, No slurred speech, No vision changes, No chest pain, No headache Allergies/Adverse Reactions: iodine Allergy (Verified 01/03/20 13:22) povidone-iodine [From Betadine] Allergy (Verified 01/03/20 13:22) soap [From Betadine] Allergy (Verified 01/03/20 13:22) Sulfa (Sulfonamide Antibiotics) Allergy (Verified 01/03/20 13:22) sulfamethoxazole [From Bactrim] Allergy (Verified 01/03/20 13:22) trimethoprim [From Bactrim] Allergy (Verified 01/03/20 13:22) IV DYE Allergy (Uncoded 01/03/20 13:22) PLASTIC TAPE Allergy (Uncoded 01/03/20 13:22) Home Medications: Testosterone Cypionate 200 mg IM UD 10/13/17 [History] Clopidogrel Bisulfate [Clopidogrel] 75 mg PO 0600 12/02/19 [History] Diclofenac Sodium 75 mg PO 0600,1800 12/02/19 [History] Gabapentin [Gralise] 600 mg PO 0600,1200,1800 12/02/19 [History] Glipizide Xl 10 mg [Glucotrol Xl 10 MG] 10 mg PO 0600,1800 12/02/19 [History] Metformin HCl 1,000 mg PO 0600,1800 12/02/19 [History] Tapentadol HCl [Nucynta ER] 250 mg PO 0600,1800 12/02/19 [History] Liraglutide [Victoza 2-Zeb] 1.8 [place] SQ [address]12/03/19 [History] Tapentadol HCl [Nucynta ER] 250 mg PO 0600,1800 12/04/19 [History] Omeprazole 20 mg PO 0600 12/09/19 [History] Hx Tetanus, Diphtheria Vaccination/Date Given: Yes Hx Influenza Vaccination/Date Given: No Hx Pneumococcal Vaccination/Date Given: No Immunizations Up to Date: Yes Travel Risk - International Travel Have you traveled outside of the country in past 3 weeks: No - Coronavirus Screening Are you exhibiting any of the following symptoms?: No Close contact with a COVID-19 positive Pt in past 14-21 Days: No - Review of Systems Constitutional: No Fever, No Chills, No Fatigue, No Lethargy, No Malaise, No Night Sweats, No Weakness, No Weight Loss Eyes: No Symptoms Ears, Nose, & Throat: No Symptoms Respiratory: No Symptoms Cardiac: No Symptoms Abdominal/Gastrointestinal: No Symptoms Genitourinary Symptoms: No Symptoms Musculoskeletal: No Symptoms Skin: No Symptoms Neurological: Dizziness, No Focal Weakness, No Gait Changes, No Headache, No Irritability, No Lethargy, No Paralysis, No Parasthesia, No Seizure, No Sensory Changes, No Speech Changes, No Tics, No Tremors, No Vertigo Psychological: No Symptoms Endocrine: No Symptoms Hematologic/Lymphatic: No Symptoms Immunological/Allergic: No Symptoms - Past Medical History Pertinent Past Medical History: Yes Neurological History: Peripheral Neuropathy ENT History: No Pertinent History Cardiac History: Peripheral Vascular Disease Respiratory History: Sleep Apnea Endocrine Medical History: Diabetes Type II Musculoskeletal History: No Pertinent History GI Medical History: No Pertinent History History: No Pertinent History Psycho-Social History: No Pertinent History Male Reproductive Disorders: No Pertinent History Other Medical History: PT IS NIDDM, scrotal sac removed for a history of a spider bite that resulted in gangrene as stated per pt.abscess to right axilla - Past Surgical History Past Surgical History: Yes Neuro Surgical History: No Pertinent History Cardiac: Vascular Surgery Respiratory: No Pertinent History Gastrointestinal: No Pertinent History Genitourinary: No Pertinent History Musculoskeletal: Joint Replacement, Orthopedic Surgery Male Surgical History: No Pertinent History Other Surgical History: SCROTOM REMOVED AND REBUILT, RT KNEE REPLACEMENT, angioplasty to left leg ,neck surgery - Social History Smoking Status: Current every day smoker How long have you smoked: 40 years Exposure to second hand smoke: Yes Drug Use: none Patient Lives Alone: Yes - Nursing Vital Signs Nursing Vital Signs: Initial Vital Signs Temperature 98.6 F 01/03/20 13:11 Pulse Rate 110 H 01/03/20 13:11 Respiratory Rate 18 01/03/20 13:11 Blood Pressure 159/95 01/03/20 13:11 O2 Sat by Pulse Oximetry 96 01/03/20 13:11 Pain Scale Pain Intensity 0 - [place] Coma Scale Best Eye Response ([place]): (4) open spontaneously Best Verbal Response ([place]): (5) oriented Best Motor Response ([place]): (6) obeys commands Fran Total: 15 - Physical Exam General Appearance: no apparent distress Eye Exam: bilateral eye: normal inspection, PERRL, EOMI Ears, Nose, Throat Exam: normal ENT inspection, TMs normal, pharynx normal, moist mucous membranes Neck Exam: normal inspection, non-tender, supple, No meningismus, No Brudzinski, No Kernig's Respiratory: normal breath sounds, lungs clear, airway intact Cardiovascular: other (Mildly tachy woM) Gastrointestinal: soft, normal bowel sounds, other (Morbidly obese) Rectal Exam: deferred Back Exam: normal inspection, No CVA tenderness Extremity Exam: normal inspection, normal range of motion, pelvis stable Peripheral Pulses: carotid (R): 2+, carotid (L): 2+, dorsalis-pedis (R): 2+, dorsalis-pedis (L): 2+ Mental Status: alert, oriented x 3, cooperative, uncooperative, other (Pt somewhat uncooperative during initiial nursing assessment) 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 Exam: normal hearing, normal speech, PERRL, tongue midline, No abnormal eye position, No abnormal gag reflex, No abnormal pupil position, No facial asymmetry, No facial droop, No facial paresthesias, No facial weakness, No gaze palsy, No hearing deficit (R), No hearing deficit (L), No tongue deviation to R, No tongue deviation to L Coordination/Gait: normal cerebellar function Motor/Sensory: no motor deficit, no sensory deficit, negative Babinski's sign, No no pronator drift DTR: bicep (R): 2+, bicep (L): 2+, knee (R): 2+, knee (L): 2+ Skin Exam: normal color, warm, dry, No rash SpO2 Interpretation: normal SpO2: 96 O2 Delivery: Room Air - Course Nursing assessment & vital signs reviewed: Yes EKG Interpreted by Me: RATE (106/Sinus tach/Poor R wave progression, but obese) Ordered Tests: Active Orders 24 hr Category Date Time Status EKG-ER Only STAT Care 01/03/20 13:36 Completed CHEST 1 VIEW (PORTABLE) Stat Exams 01/03/20 13:34 Taken MRI BRAIN W/O CONTRAST [MRI] Stat Exams 01/03/20 13:34 Completed CBC W DIFF Stat Lab 01/03/20 13:40 Completed CMP Stat Lab 01/03/20 13:40 Completed TROPONIN Q3H Lab 01/03/20 13:40 Completed Medication Summary Discontinued Medications Generic Name Dose Route Start Last Admin Trade Name Nkechi PRN Reason Stop Dose Admin Diazepam 10 mg 01/03/20 14:47 01/03/20 14:53 Valium 5 Mg PO 01/03/20 14:48 10 mg ONCE ONE Administration Diazepam Confirm 01/03/20 14:50 Valium 5 Mg Administered 01/03/20 14:51 Dose 10 mg .ROUTE .STK-MED ONE Diazepam 10 mg 01/03/20 14:47 Valium 5 Mg PO 01/03/20 14:48 STAT ONE Meclizine HCl 25 mg 01/03/20 14:40 01/03/20 14:47 Antivert 25 Mg PO 01/03/20 14:41 Not Given STAT ONE Meclizine HCl Confirm 01/03/20 14:41 Antivert 25 Mg Administered 01/03/20 14:42 Dose 25 mg .ROUTE .STK-MED ONE Lab/Rad Data: Laboratory Result Diagrams 01/03/20 13:40 01/03/20 13:40 Laboratory Results 01/03/20 01/03/20 01/03/20 Range/Units 13:40 13:40 13:40 WBC 8.7 (4.0-10.5) K/mm3 RBC 4.34 (4.1-5.6) M/mm3 Hgb 14.0 (12.5-18.0) gm/dl Hct 40.9 L (42-50) % MCV 94.2 (78-100) fl MCH 32.3 H (26-32) pg MCHC 34.2 (32-36) g/dl RDW 14.4 H (11.5-14.0) % Plt Count 243 (150-450) K/mm3 MPV 9.7 (7.5-11.0) fl Gran % 62.5 (36.0-66.0) % Eos # (Auto) 0.34 (0-0.5) Absolute Lymphs (auto) 2.27 (1.0-4.6) Absolute Monos (auto) 0.62 (0.0-1.3) Lymphocytes % 26.0 (24.0-44.0) % Monocytes % 7.1 (0.0-12.0) % Eosinophils % 3.9 (0.00-5.0) % Basophils % 0.5 (0.0-0.4) % Absolute Granulocytes 5.46 (1.4-6.9) Basophils # 0.04 (0-0.4) Sodium 136 L (137-145) mmol/L Potassium 4.7 (3.5-5.1) mmol/L Chloride 103 (98-107) mmol/L Carbon Dioxide 24 (22-30) mmol/L Anion Gap 13.9 (5-15) MEQ/L BUN 18 (9-20) mg/dL Creatinine 1.06 (0.66-1.25) mg/dL Estimated GFR > 60.0 ML/MIN Glucose 155 H (74-106) mg/dL Calcium 9.4 (8.4-10.2) mg/dL Total Bilirubin 0.50 (0.2-1.3) mg/dL AST 23 (17-59) U/L ALT 18 (0-50) U/L Alkaline Phosphatase 80 (38-126) U/L Troponin I < 0.012 (0.000-0.034) ng/mL Serum Total Protein 7.4 (6.3-8.2) g/dL Albumin 4.4 (3.5-5.0) g/dL - Progress Progress: unchanged Progress Note: 01/03/20 14:49 Pt refused 25mg po Meclizine because he states that he has had a ton of meclizine in the past for dizziness when he had his neck broke, and it did not do anything. 10mg po valium given. 01/03/20 15:16 MRI of brain wo acute process per Rad 01/03/20 19:01 Dizzines unchanged w Valium Counseled pt/family regarding: lab results, need for follow-up, rad results - Departure Departure Disposition: Home Clinical Impression: Dizziness of unknown etiology Condition: Stable Critical Care Time: No Referrals: SAMI ALLEN [Primary Care Provider] - Instructions: Dizziness, Nonvertigo, (DC) Additional Instructions: Follow up with family MD in 1-2 days Scopolamine patch every 3 days as needed for dizziness Return to ER for focal weakness/worsening dizziness/Worseninbg headache Prescriptions: Scopolamine 1.5 mg Patch [Transderm Scop 1.5MG Patch] 1.5 mg TD UD PRN #4 patch PRN Reason: Dizziness
[2020-01-03 13:46] LABS: Absolute Neutrophil Ct (ANC) 5.46 (1.4-6.9); BASOPHIL % 0.5 % (0.0-0.4); Basophil (Absolute #) 0.04 (0-0.4); Eosinophil % 3.9 % (0.00-5.0); Eosinophil (Absolute #) 0.34 (0-0.5); Hematocrit 40.9 % (42-50); Lymphocyte (Absolute #) 2.27 (1.0-4.6); Mean Cell Volume 94.2 fl (78-100); Mean Corpuscular Hemoglobin 32.3 pg (26-32); Mean Corpuscular Hgb Concent. 34.2 g/dl (32-36); Mean Platelet Volume 9.7 fl (7.5-11.0); Monocyte (Absolute #) 0.62 (0.0-1.3); Monocytes % 7.1 % (0.0-12.0); Neutrophil % 62.5 % (36.0-66.0); Platelet Count 243 K/mm3 (150-450); Red Blood Count 4.34 M/mm3 (4.1-5.6); Red Cell Distribution Width 14.4 % (11.5-14.0); White Blood Count 8.7 K/mm3 (4.0-10.5)
[2020-01-03 14:02] LABS: ALBUMIN 4.4 g/dL (3.5-5.0); ALKALINE PHOSPHATASE 80 U/L (38-126); ANION GAP 13.9 MEQ/L (5-15); BLOOD UREA NITROGEN 18 mg/dL (9-20); CHLORIDE 103 mmol/L (98-107); Calcium 9.4 mg/dL (8.4-10.2); Carbon Dioxide 24 mmol/L (22-30); Creatinine 1 1.06 mg/dL (0.66-1.25); Glucose 155 mg/dL (74-106); Potassium 4.7 mmol/L (3.5-5.1); SGOT/AST 23 U/L (17-59); SGPT/ALT 18 U/L (0-50); SODIUM 136 mmol/L (137-145); Total Protein 7.4 g/dL (6.3-8.2)
[2020-01-03 14:40] VITALS: BP 128/76; PULSE 88
[2020-01-03] MEDS ORDERED: ANTIVERT 25 MG ONE (14:41)
[2020-01-03] MEDS: ANTIVERT 25 MG PO ONE ×2 (14:43→14:47)
[2020-01-03] MEDS ORDERED: Valium 5 MG PO ONE ×2 (14:47)
[2020-01-03 14:50] VITALS: O2SAT 96
[2020-01-03] MEDS ORDERED: Valium 5 MG ONE (14:50)
--- NOTE | 2020-01-03 15:07 | XRAY ---
Exam: MRI of the brain without IV contrast from 01/03/2020. Comparison: CT of the head without IV contrast from 12/25/2019. Indication: 54-year-old male fell 2 weeks ago striking back of head on a car battery, complains of continued dizziness. Technique: Multiplanar, multisequence MRI imaging of the brain was obtained without IV contrast per protocol. Findings: The ventricles appear of normal size and configuration. No focal mass effect or midline shift is seen. There is no evidence of acute intracranial hemorrhage. There are a few subtle foci of increased signal intensity on the T2-weighted FLAIR images. This is nonspecific and likely due to minimal gliosis or minimal chronic small vessel ischemic white matter disease. The diffusion weighted images reveal no foci of restricted diffusion to suggest an acute/subacute infarct. No other abnormal increased or decreased signal intensities are seen. The gradient echo images reveal unremarkable flow voids within the [place] of [place]. The seventh and eighth cranial nerve complexes appear unremarkable. Structures of the posterior fossa appear unremarkable. No abnormal extra-axial fluid collection is seen. The visualized paranasal sinuses and mastoids appear clear. The orbits reveal no significant abnormality. The pituitary gland appears unremarkable on the midline sagittal T2 FLAIR images and coronal T1-weighted images. Impression: 1. The nonenhanced MRI of the brain reveals no acute process or new significant abnormality as compared to the non-IV contrast CT of the brain from 12/25/2019.
--- NOTE | 2020-01-07 07:34 | XRAY ---
Exam: AP portable chest film from 01/03/2020. Comparison: Two-view chest from 12/02/2019. Indication: Dizziness. Findings: The heart size and contour are normal. There is mild tortuosity of the descending thoracic aorta. The [place] and mediastinal structures appear unremarkable. The lungs are adequately inflated. A small calcified granuloma is again seen at the lateral left lung base. No air space infiltrates, vascular congestion, pneumothorax, or pleural fluid is seen. Some mild degenerative osteoarthropathy of the right acromioclavicular joint is seen. There appears to be evidence of prior lower anterior cervical spine fusion surgery with a metallic plate and small pedicle screws. One of the superior screws appears to be broken. Prominent lateral osteophyte formation is seen within the lower thoracic spine. Impression: 1. No acute cardiopulmonary disease is seen. 2. Other incidental findings, as discussed above.
== END 2020-01-03 15:35 | disposition home or self-care (01) ==
LOC: ED 13:08
DX: R42 Dizziness and giddiness (principal); I73.9 Peripheral vascular disease, unspecified; G62.9 Polyneuropathy, unspecified; G47.30 Sleep apnea, unspecified; Z79.899 Other long term (current) drug therapy
CPT/HCPCS: 36000; 36415; 70551; 71045; 80053; 84484; 85025; 93005; 99284; A9270-GY

== ENCOUNTER 2020-03-23 14:48 | Emergency (ER) | payer MEDICARE ==
[2020-03-23] MEDS ORDERED: PERCOCET TABLET 5/325MG ONE (16:15)
[2020-03-23] MEDS: PERCOCET TABLET 5/325MG PO ONE ×2 (16:16→16:24)
--- NOTE | 2020-03-23 16:50 | ERPHSYRPT ---
- History of Present Illness Time Seen by Provider: 03/23/20 15:34 Source: patient Exam Limitations: no limitations Patient Subjective Stated Complaint: right hand/wrist pain Triage Nursing Assessment: aaox3, walked in, c/o left hand/wrist pain s/p hit with chain binder 2 weeks ago. swelling to left wrist noted. distal neuro/vascular intact. No other inuries noted or complained of. Physician History: 54 years old male with history of chronic pain, diabetes mellitus presented in the ER with chief complaint of left wrist pain intermittently for the last 2 weeks. Patient report he accidentally hit the chain cord 2 weeks ago around the distal forearm and gradually pain is more in the left lateral wrist area limiting abduction/abduction of wrist without any limitation of flexion extension. No numbness tingling or weakness of fingers. Minimal swelling. Occurred: days ago (14) Method of Injury: direct blow Quality: intermittent Severity of Pain-Max: moderate Severity of Pain-Current: moderate Extremities Pain Location: wrist: left Modifying Factors: Improves With: immobilization, rest. Worsens With: movement Associated Symptoms: none Allergies/Adverse Reactions: iodine Allergy (Verified 01/03/20 13:22) povidone-iodine [From Betadine] Allergy (Verified 01/03/20 13:22) soap [From Betadine] Allergy (Verified 01/03/20 13:22) Sulfa (Sulfonamide Antibiotics) Allergy (Verified 01/03/20 13:22) sulfamethoxazole [From Bactrim] Allergy (Verified 01/03/20 13:22) trimethoprim [From Bactrim] Allergy (Verified 01/03/20 13:22) IV DYE Allergy (Uncoded 01/03/20 13:22) PLASTIC TAPE Allergy (Uncoded 01/03/20 13:22) Home Medications: Testosterone Cypionate 200 mg IM UD 10/13/17 [History] Clopidogrel Bisulfate [Clopidogrel] 75 mg PO 0600 12/02/19 [History] Diclofenac Sodium 75 mg PO 0600,1800 12/02/19 [History] Gabapentin [Gralise] 600 mg PO 0600,1200,1800 12/02/19 [History] Glipizide Xl 10 mg [Glucotrol Xl 10 MG] 10 mg PO 0600,1800 12/02/19 [History] Metformin HCl 1,000 mg PO 0600,1800 12/02/19 [History] Tapentadol HCl [Nucynta ER] 250 mg PO 0600,1800 12/02/19 [History] Liraglutide [Victoza 2-Zeb] 1.8 mg SQ 0600 12/03/19 [History] Tapentadol HCl [Nucynta ER] 250 mg PO 0600,1800 12/04/19 [History] Omeprazole 20 mg PO 0600 12/09/19 [History] Hx Tetanus, Diphtheria Vaccination/Date Given: Yes Hx Influenza Vaccination/Date Given: No Hx Pneumococcal Vaccination/Date Given: No Travel Risk - International Travel Have you traveled outside of the country in past 3 weeks: No - Coronavirus Screening Are you exhibiting any of the following symptoms?: No Close contact with a COVID-19 positive Pt in past 14-21 Days: No - Review of Systems Constitutional: No Symptoms Eyes: No Symptoms Ears, Nose, & Throat: No Symptoms Respiratory: No Symptoms Cardiac: No Symptoms Abdominal/Gastrointestinal: No Symptoms Musculoskeletal: Injury, Joint Pain Skin: No Symptoms Neurological: No Symptoms Psychological: No Symptoms - Past Medical History Pertinent Past Medical History: Yes Neurological History: No Pertinent History ENT History: No Pertinent History Cardiac History: Peripheral Vascular Disease Respiratory History: Sleep Apnea Endocrine Medical History: Diabetes Type II Musculoskeletal History: No Pertinent History GI Medical History: No Pertinent History History: No Pertinent History Psycho-Social History: No Pertinent History Male Reproductive Disorders: No Pertinent History Other Medical History: PT IS NIDDM, scrotal sac removed for a history of a spider bite that resulted in gangrene as stated per pt.abscess to right axilla - Past Surgical History Past Surgical History: Yes Neuro Surgical History: No Pertinent History Cardiac: Vascular Surgery Respiratory: No Pertinent History Gastrointestinal: No Pertinent History Genitourinary: No Pertinent History Musculoskeletal: Joint Replacement, Orthopedic Surgery Male Surgical History: No Pertinent History Other Surgical History: SCROTOM REMOVED AND REBUILT, RT KNEE REPLACEMENT, angioplasty to left leg ,neck surgery - Social History Smoking Status: Current every day smoker How long have you smoked: 40 yrs Exposure to second hand smoke: Yes Drug Use: none Patient Lives Alone: No - Nursing Vital Signs Nursing Vital Signs: Initial Vital Signs Temperature 97.7 F 03/23/20 15:25 Pulse Rate 76 03/23/20 15:25 Respiratory Rate 20 03/23/20 15:25 Blood Pressure 164/76 03/23/20 15:25 O2 Sat by Pulse Oximetry 96 03/23/20 15:25 Pain Scale Pain Intensity 5 - Physical Exam General Appearance: no apparent distress, alert Eyes, Ears, Nose, Throat Exam: normal ENT inspection, pharynx normal Neck Exam: normal inspection, supple, full range of motion Cardiovascular/Respiratory Exam: normal breath sounds, regular rate/rhythm Shoulder Exam: normal inspection, non-tender Elbow/Forearm Exam: normal inspection, non-tender, no evidence of injury Wrist Exam: normal inspection, bone tenderness, limited ROM (Left wrist adduction/abduction. Tenderness distal radius area. No anatomical snuffbox tenderness. Intact distal neurovascular.) Hand Exam: normal inspection, non-tender, no evidence of injury, normal ROM Neuro/Tendon Exam: normal sensation Mental Status Exam: alert, oriented x 3 Skin Exam: normal color SpO2 Interpretation: normal SpO2: 96 O2 Delivery: Room Air Ordered Tests: Active Orders 24 hr Category Date Time Status WRIST (MIN 3 VIEWS) Stat Exams 03/23/20 16:15 Taken Medication Summary Discontinued Medications Generic Name Dose Route Start Last Admin Trade Name Nkechi PRN Reason Stop Dose Admin Oxycodone/Acetaminophen 1 tab 03/23/20 16:04 03/23/20 16:24 Percocet Tablet 5/325mg PO 03/23/20 16:05 1 tab STAT ONE Administration Oxycodone/Acetaminophen Confirm 03/23/20 16:15 Percocet Tablet 5/325mg Administered 03/23/20 16:16 Dose 1 tab .ROUTE .STK-MED ONE - Progress Progress: pain not gone completely Progress Note: 03/23/20 16:48 I have obtained x-rays which showed questionable fracture in the medial side of radius and ulna with pending official read but patient does not have any tenderness in that area. Patient has more tenderness in the lateral aspect of distal radius. I have given him a wrist splint. This could be bony contusion. Recommended taking pain medication which he is at home. Outpatient follow-up with Ortho clinic. Counseled pt/family regarding: diagnosis, need for follow-up, rad results - Departure Departure Disposition: Home Clinical Impression: Acute pain of left wrist Condition: Stable Critical Care Time: No Referrals: SAMI ALLEN [Primary Care Provider] - Follow Up with PCP/3 days AZUL GARCIA NP [NON-STAFF PHY W/O PRIVILEGES] - (Call tomorrow for appointment) Instructions: Common Wrist Injuries (DC) Additional Instructions: Use pain medication which you have at home as recommended. Follow-up with Ortho clinic for reevaluation. Return to ER for any worsening.
[2020-03-23 17:00] VITALS: BP 175/83; PULSE 92; O2SAT 97
--- NOTE | 2020-03-24 08:58 | XRAY ---
Indication: Pain following injury 2 weeks ago. Comparison: None 3 view left wrist demonstrates moderate/advanced degenerative changes of radiocarpal and distal radioulnar joints. Elsewhere widened scapholunate interval concerning for underlying ligamentous tear, mild 3rd MCP degenerative changes, scattered vascular calcifications, distal forearm soft tissue calcified granulomas, and distal forearm 1.4 cm long metallic wire foreign-body. No other bony, articular, or soft tissue abnormalities.
== END 2020-03-23 17:15 | disposition home or self-care (01) ==
LOC: ED 14:48
DX: M25.532 Pain in left wrist (principal); W22.8XXA Striking against or struck by other objects, initial encounter; Y93.89 Activity, other specified; Z79.899 Other long term (current) drug therapy; E11.9 Type 2 diabetes mellitus without complications; I73.9 Peripheral vascular disease, unspecified; Z72.0 Tobacco use
CPT/HCPCS: 73110; 99283; L3908; A9270-GY

== ENCOUNTER 2021-12-12 13:34 | Emergency (ER) | payer MEDICARE ==
--- NOTE | 2021-12-12 14:10 | ERPHSYRPT ---
- History of Present Illness Time Seen by Provider: 12/12/21 13:39 Source: patient Exam Limitations: no limitations Patient Subjective Stated Complaint: Right hand injury Triage Nursing Assessment: Patient ambulated back to ED and sat in bedside ch air. Patient A+O X 3. Patient's skin pink, warm and dry. Patient complains of right hand pain after breaking up a fight with his two dogs he punched one of the dogs with a closed fist in the head. Patient complains of pain 10/10 to right hand. Swelling noted to right hand. Physician History: 56 years old right-handed dominant male presented in the ER after he was trying to separate 2 dogs and punched on 1 of dog's head to put the right hand and is having swelling pain sudden onset prior to arrival with difficulty movements of the fingers because of pain in the knuckle area. Patient thinks he has broken his hand. No numbness or tingling in the fingers. No injury anywhere else. No skin break. Patient is on pain medications at home and does not want any pain m eds here. Occurred: just prior to arrival Method of Injury: direct blow Quality: sharpness Severity of Pain-Max: severe Severity of Pain-Current: severe Extremities Pain Location: hand: right Modifying Factors: Improves With: immobilization. Worsens With: movement Associated Symptoms: none Allergies/Adverse Reactions: iodine Allergy (Severe, Verified 12/12/21 13:48) Blisters states "skin comes off" povidone-iodine [From Betadine] Allergy (Severe, Verified 12/12/21 13:48) Blisters soap [From Betadine] Allergy (Severe, Verified 12/12/21 13:48) Blisters Sulfa (Sulfonamide Antibiotics) Allergy (Unknown, Verified 12/12/21 13:48) sulfamethoxazole [From Bactrim] Allergy (Unknown, Verified 12/12/21 13:48) trimethoprim [From Bactrim] Allergy (Unknown, Verified 12/12/21 13:48) IV DYE Allergy (Severe, Uncoded 12/12/21 13:48) Blisters Home Medications: Testosterone Cypionate 200 mg IM UD 10/13/17 [History] Clopidogrel Bisulfate [Clopidogrel] 75 mg PO 0600 12/02/19 [History] Glipizide Xl mg [Glucotrol Xl] 10 mg PO 0600,1800 12/02/19 [History] Metformin HCl 1,000 mg PO 0600,1800 12/02/19 [History] Liraglutide [Victoza 2-Zeb] 1.8 mg SQ 00 12/03/19 [History] Omeprazole 20 mg PO 0600 12/09/19 [History] Hx Tetanus, Diphtheria Vaccination/Date Given: Yes Hx Influenza Vaccination/Date Given: No Hx Pneumococcal Vaccination/Date Given: No Immunizations Up to Date: Yes Travel Risk - International Travel Have you traveled outside of the country in past 3 weeks: No - Coronavirus Screening Are you exhibiting any of the following symptoms?: No Close contact with a COVID-19 positive Pt in past 14-21 Days: No - Vaccine Status Have you recieved a Covid-19 vaccination: No - Review of Systems Constitutional: No Symptoms Eyes: No Symptoms Ears, Nose, & Throat: No Symptoms Respiratory: No Symptoms Cardiac: No Symptoms Abdominal/Gastrointestinal: No Symptoms Genitourinary Symptoms: No Symptoms Musculoskeletal: Injury, Joint Redness, Joint Pain, Joint Swelling Skin: No Symptoms Neurological: No Symptoms Hematologic/Lymphatic: No Symptoms Immunological/Allergic: No Symptoms - Past Medical History Pertinent Past Medical History: Yes Neurological History: No Pertinent History ENT History: No Pertinent History Cardiac History: Peripheral Vascular Disease Respiratory History: Sleep Apnea Endocrine Medical History: Diabetes Type II Musculoskeletal History: No Pertinent History GI Medical History: No Pertinent History History: No Pertinent History Psycho-Social History: No Pertinent History Male Reproductive Disorders: No Pertinent History Other Medical History: PT IS NIDDM, scrotal sac removed for a history of a spider bite that resulted in gangrene as stated per pt.abscess to right axilla - Past Surgical History Past Surgical History: Yes Neuro Surgical History: No Pertinent History Cardiac: Vascular Surgery Respiratory: No Pertinent History Gastrointestinal: No Pertinent History Genitourinary: No Pertinent History Musculoskeletal: Joint Replacement, Orthopedic Surgery Male Surgical History: No Pertinent History Other Surgical History: SCROTOM REMOVED AND REBUILT, RT KNEE REPLACEMENT, angioplasty to left leg ,neck surgery - Social History Smoking Status: Current every day smoker How long have you smoked: 40 yrs Exposure to second hand smoke: Yes Drug Use: none Patient Lives Alone: No - Nursing Vital Signs Nursing Vital Signs: Initial Vital Signs Temperature 97.5 F 12/12/21 13:48 Pulse Rate 93 H 12/12/21 13:48 Respiratory Rate 18 12/12/21 13:48 Blood Pressure 141/73 12/12/21 13:48 O2 Sat by Pulse Oximetry 97 12/12/21 13:48 Pain Scale Pain Intensity 10 - Physical Exam General Appearance: no apparent distress, alert Eyes, Ears, Nose, Throat Exam: normal ENT inspection Neck Exam: normal inspection Cardiovascular/Respiratory Exam: normal breath sounds, regular rate/rhythm Wrist Exam: normal inspection, non-tender, no evidence of injury, normal ROM Hand Exam: bone tenderness (Knuckles and dorsum of hand with pronounced te nderness of the third metacarpal phalangeal joint area. Intact distal neurovascular.), limited ROM, soft tissue tenderness, swelling Neuro/Tendon Exam: normal sensation, normal motor functions Mental Status Exam: alert, oriented x 3, cooperative Skin Exam: normal color SpO2 Interpretation: normal SpO2: 97 O2 Delivery: Room Air Ordered Tests: Active Orders 24 hr Category Date Time Status HAND (MINIMUM 3 VIEWS) Stat Exams 12/12/21 14:03 Taken - Progress Progress: unchanged Progress Note: 12/12/21 14:47 Offered pain medications again which she refused. Has fracture third metacarpal distally. Placed in Ortho-Glass splint by RN with intact distal neurovascular on reevaluation. Outpatient orthopedic surgery/hand surgery follow-up gilmer mmended. 12/12/21 15:32 Counseled pt/family regarding: diagnosis, need for follow-up, rad results - Departure Departure Disposition: Home Clinical Impression: Hand fracture, right Condition: Stable Critical Care Time: No Referrals: SAMI ALLEN [Primary Care Provider] - Follow Up with PCP/3 days MACIEJ - AZUL GARCIA NP [NON-STAFF PHY W/O PRIVILEGES] - Follow up/PCP as directed (In 3 days for reevaluation) DOMONIQUE LUND MD [NON-STAFF PHY W/O PRIVILEGES] - Follow up/PCP as directed (Call for appointment for reevaluation early next week) Instructions: Hand Fracture (DC), Boxer's Fracture (DC) Additional Instructions: Take pain medication which you have at home as needed. Keep it elevated. Intermittent ice application. Follow-up with surgery/hand surgery for elevation. Return to ER for worsening swelling pain difficulty movements of fingers/numbness tingling in the fingers.
[2021-12-12 15:07] VITALS: BP 140/70; PULSE 86
[2021-12-12 15:33] VITALS: O2SAT 97
--- NOTE | 2021-12-12 15:47 | XRAY ---
Indication: Pain following injury. Comparison: July 08, 2020 3 view right hand unchanged again demonstrating moderate 3rd MCP degenerative changes, mild degenerative changes all IP joints, and extensive wrist/forearm vascular calcifications. No new/acute bony, articular, or soft tissue abnormalities.
== END 2021-12-12 15:19 | disposition home or self-care (01) ==
LOC: ED 13:34
DX: S62.392A Other fracture of third metacarpal bone, right hand, initial encounter for closed fracture (principal); W22.8XXA Striking against or struck by other objects, initial encounter; M79.641 Pain in right hand; E11.9 Type 2 diabetes mellitus without complications; Z72.0 Tobacco use; Z79.02 Long term (current) use of antithrombotics/antiplatelets; Z79.84 Long term (current) use of oral hypoglycemic drugs; Z79.899 Other long term (current) drug therapy
CPT/HCPCS: 29125; 36415; 73130; 86038; 86431; 99283

== ENCOUNTER 2022-01-27 21:43 | Emergency (ER) | payer MEDICARE ==
[2022-01-27 21:55] VITALS: O2SAT 97
--- NOTE | 2022-01-27 22:10 | ERPHSYRPT ---
- History of Present Illness Time Seen by Provider: 01/27/22 22:08 Source: patient Exam Limitations: no limitations Patient Subjective Stated Complaint: I fell in a hole last Tuesday and have done something to the top part of my back. Triage Nursing Assessment: Pt ambulated into ER without diff. Pt c/o upper back pain. Last Tuesday patient was walking [place] and fell in a hole. Since then the upper back pain has gotten worse everyday. Physician History: Patient is a 56-year-old male presents to emergency department for evaluation of thoracic spine pain. Patient states he was walking [place] on Tuesday 4 days ago when he inadvertently stepped into a relatively deep hole causing pain to his thoracic spine. Patient states he has a history of chronic back pain and arthritis. Patient fell after stepping into the hole and tweaked his back. There was no direct trauma to his back. No neck pain. Cervical spine cleared clinically. No BHT or LOC. No chest pain or shortness of breath. Back pain described as an ache that is localized. No radiation. No associated change in bowel bladder function. No recent back procedures. No fever. Symptoms are mild to moderate in intensity. Movement and palpation reproduce symptoms. Pain improved with rest. Patient voices no other complaints or concerns at this time. Portions of this note were created with voice recognition technology. There may be grammatical, spelling, punctuation or sound alike errors Timing/Duration: day(s) (4 days ago) Method of Injury: unknown Quality: aching Back Pain Location: T-spine Severity of Pain-Max: moderate Severity of Pain-Current: mild Modifying Factors: Improves With: nothing Associated Symptoms: denies symptoms, No fever, No sweating, No urinary incontinence, No loss of bowel control, No vomiting, No problems urinating, No light-headedness, No weakness, No sensory/motor loss, No tingling in legs/feet Allergies/Adverse Reactions: iodine Allergy (Severe, Verified 01/27/22 22:06) Blisters states "skin comes off" povidone-iodine [From Betadine] Allergy (Severe, Verified 01/27/22 22:06) Blisters soap [From Betadine] Allergy (Severe, Verified 01/27/22 22:06) Blisters Sulfa (Sulfonamide Antibiotics) Allergy (Unknown, Verified 01/27/22 22:06) sulfamethoxazole [From Bactrim] Allergy (Unknown, Verified 01/27/22 22:06) trimethoprim [From Bactrim] Allergy (Unknown, Verified 01/27/22 22:06) IV DYE Allergy (Severe, Uncoded 01/27/22 22:06) Blisters Home Medications: Testosterone Cypionate 200 mg IM UD 10/13/17 [History] Clopidogrel Bisulfate [Clopidogrel] 75 mg PO 0600 12/02/19 [History] Glipizide Xl mg [Glucotrol Xl] 10 mg PO 0600,1800 12/02/19 [History] Metformin HCl 1,000 mg PO 0600,1800 12/02/19 [History] Liraglutide [Victoza 2-Zeb] 1.8 [place] SQ [address]12/03/19 [History] Omeprazole 20 mg PO 0600 12/09/19 [History] Diclofenac Sodium 50 mg [Voltaren 50 mg] 1 tab PO BID 01/27/22 [History] Tapentadol HCl [Nucynta] 100 mg PO Q4HPRN PRN 01/27/22 [History] Hx Tetanus, Diphtheria Vaccination/Date Given: Yes Hx Influenza Vaccination/Date Given: No Hx Pneumococcal Vaccination/Date Given: No Immunizations Up to Date: Yes Travel Risk - International Travel Have you traveled outside of the country in past 3 weeks: No - Coronavirus Screening Are you exhibiting any of the following symptoms?: Yes Symptoms: Fever Close contact with a COVID-19 positive Pt in past 14-21 Days: No - Vaccine Status Have you recieved a Covid-19 vaccination: No - Review of Systems Constitutional: No Symptoms, No Fever, No Chills Eyes: No Symptoms Ears, Nose, & Throat: No Symptoms Respiratory: No Symptoms, No Cough, No Dyspnea Cardiac: No Symptoms, No Chest Pain, No Edema, No Syncope Abdominal/Gastrointestinal: No Symptoms, No Abdominal Pain, No Nausea, No Vomiting, No Diarrhea Genitourinary Symptoms: No Symptoms, No Dysuria Musculoskeletal: No Symptoms, No Back Pain, No Neck Pain Skin: No Symptoms, No Rash Neurological: No Symptoms, No Dizziness, No Focal Weakness, No Sensory Changes Psychological: No Symptoms Endocrine: No Symptoms Hematologic/Lymphatic: No Symptoms Immunological/Allergic: No Symptoms All Other Systems: Reviewed and Negative - Past Medical History Pertinent Past Medical History: Yes Neurological History: No Pertinent History ENT History: No Pertinent History Cardiac History: Peripheral Vascular Disease Respiratory History: Sleep Apnea Endocrine Medical History: Diabetes Type II Musculoskeletal History: No Pertinent History GI Medical History: No Pertinent History History: No Pertinent History Psycho-Social History: No Pertinent History Male Reproductive Disorders: No Pertinent History Other Medical History: PT IS NIDDM, scrotal sac removed for a history of a spider bite that resulted in gangrene as stated per pt.abscess to right axilla - Past Surgical History Past Surgical History: Yes Neuro Surgical History: No Pertinent History Cardiac: Vascular Surgery Respiratory: No Pertinent History Gastrointestinal: No Pertinent History Genitourinary: No Pertinent History Musculoskeletal: Joint Replacement, Orthopedic Surgery Male Surgical History: No Pertinent History Other Surgical History: SCROTOM REMOVED AND REBUILT, RT KNEE REPLACEMENT, angioplasty to left leg ,neck surgery - Social History Smoking Status: Current every day smoker How long have you smoked: 40 yrs Exposure to second hand smoke: Yes Drug Use: none Patient Lives Alone: No - Nursing Vital Signs Nursing Vital Signs: Initial Vital Signs Temperature 97.5 F 01/27/22 21:51 Pulse Rate 88 01/27/22 21:51 Respiratory Rate 20 01/27/22 21:51 Blood Pressure 183/98 01/27/22 21:51 O2 Sat by Pulse Oximetry 97 01/27/22 21:51 Pain Scale Pain Intensity [Upper Back] 10 Pain Intensity 10 - Physical Exam General Appearance: no apparent distress, alert Eye Exam: PERRL/EOMI, eyes nml inspection Neck Exam: normal inspection, non-tender, supple, full range of motion, No meningismus, No midline tenderness Respiratory Exam: normal breath sounds, lungs clear, airway intact, No respiratory distress Cardiovascular Exam: regular rate/rhythm, normal heart sounds, normal peripheral pulses Gastrointestinal Exam: soft, No tenderness, No mass Extremity Exam: normal inspection, normal range of motion, pelvis stable, No calf tenderness, No pedal edema Neurologic Exam: alert, oriented x 3, cooperative, reel 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 Osteopenia. Degenerative changes. Disc space narrowing. Postsurgical hardware visible at C-spine. Lung montgomery appear clear) Ordered Tests: Active Orders 24 hr Category Date Time Status THORACIC SPINE (AP,LAT,SWIMM) Stat Exams 01/27/22 22:03 Taken Medication Summary Discontinued Medications Generic Name Dose Route Start Last Admin Trade Name Nkechi PRN Reason Stop Dose Admin Acetaminophen 975 mg 01/27/22 22:05 01/27/22 22:14 Acetaminophen 325 Mg Tablet PO 01/27/22 22:06 975 mg STAT ONE Administration Acetaminophen Confirm 01/27/22 22:13 Acetaminophen 325 Mg Tablet Administered 01/27/22 22:14 Dose 975 mg .ROUTE .STK-MED ONE Ketorolac Tromethamine 30 mg 01/27/22 22:04 01/27/22 22:14 Ketorolac Tromethamine 30 Mg/Ml Inj IM 01/27/22 22:05 30 mg STAT ONE Administration Ketorolac Tromethamine Confirm 01/27/22 22:13 Ketorolac Tromethamine 30 Mg/Ml Inj Administered 01/27/22 22:14 Dose 30 mg .ROUTE .STK-MED ONE - Progress Progress: improved Progress Note: Patient reassessed. Pain improved but not resolved. He states he is ready for discharge. X-ray negative for fracture. However patient has significant osteopenia degenerative disc disease and arthritis throughout the lumbar spine. These findings are chronic. Patient may benefit from a back surgeon consultation. Will refer patient to Dr. Raj Valadez spine surgeon in [place] for further evaluation. Plan of care discussed with patient. He agrees to follow-up as discussed within 48 hours. He voices no other complaints or concerns at this time. Portions of this note were created with voice recognition technology. There may be grammatical, spelling, punctuation or sound alike errors 01/27/22 22:39 Counseled pt/family regarding: diagnosis, need for follow-up, rad results - Departure Departure Disposition: Home Clinical Impression: Back pain, Degenerative arthritis of thoracic spine, DDD (degenerative disc disease), Osteopenia Condition: Stable Critical Care Time: No Referrals: SAMI ALLEN [Primary Care Provider] - Follow up/PCP as directed DEBI VALADEZ [NON-STAFF PHY W/O PRIVILEGES] - Follow up/PCP as directed Additional Instructions: Discharge/Care Plan ALFONZO BARGER was seen on 01/27/22 in the Emergency Room. The patient was counseled regarding Diagnosis,Lab results, Imaging studies, need for follow up and when to return to the Emergency Room. Prescriptions given: Discharge Note I have spoken with the patient and/or caregivers. I have explained the patient's condition, diagnosis and treatment plan based on the information available to me at this time. I have answered the patient's and/or caregiver's questions and addressed any concerns. The patient and/or caregivers have as good understanding of the patient's diagnosis, condition and treatment plan as can be expected at this point. The vital signs have been stable. The patient's condition is stable and appropriate for discharge from the emergency department. The patient will pursue further outpatient evaluation with the primary care physician or other designated or consulting physician as outlined in the discharge instructions. The patient and/or caregivers are agreeable to this plan of care and follow-up instructions have been explained in detail. The patient and/or caregivers have received these instruction. The patient/and or caregivers are aware that any significant change in condition or worsening of symptoms should prompt an immediate return to this or the closest emergency department or call 911.
[2022-01-27] MEDS ORDERED: TORAdol 30 mg Injection ONE (22:13)
[2022-01-27] MEDS ORDERED: TYLENOL 325 MG ONE (22:13)
[2022-01-27] MEDS: TYLENOL 325 MG PO ONE (22:14)
[2022-01-27] MEDS: TORAdol 30 mg Injection IM ONE (22:14)
[2022-01-27 23:14] VITALS: BP 138/82; PULSE 85
--- NOTE | 2022-01-28 08:58 | XRAY ---
Indication: Pain following injury. Comparison: March 26, 2021. AP/lateral thoracic spine unchanged again demonstrating normal alignment with multilevel bridging/nonbridging endplate osteophytes and C4-C6 fusion hardware. No new/acute abnormalities.
== END 2022-01-27 23:10 | disposition home or self-care (01) ==
LOC: ED 21:43
DX: M51.34 Other intervertebral disc degeneration, thoracic region (principal); M47.814 Spondylosis without myelopathy or radiculopathy, thoracic region; M85.88 Other specified disorders of bone density and structure, other site; E11.9 Type 2 diabetes mellitus without complications; Z72.0 Tobacco use; Z79.02 Long term (current) use of antithrombotics/antiplatelets; Z79.84 Long term (current) use of oral hypoglycemic drugs; Z79.899 Other long term (current) drug therapy; Z28.310 Unvaccinated for COVID-19
CPT/HCPCS: 72072; 96372; 99283; J1885; A9270-GY

== ENCOUNTER 2022-05-13 15:08 | Emergency (ER) | payer MEDICARE ==
--- NOTE | 2022-05-13 16:28 | ERPHSYRPT ---
- History of Present Illness Time Seen by Provider: 05/13/22 16:10 Source: patient Exam Limitations: no limitations Patient Subjective Stated Complaint: pt states "I was breaking up a dog fight and fell and hurt my back." Triage Nursing Assessment: pt ambulated into the er; pt is axo x4; c/o back pain; pt states 6/10 pain to lower left back; pt states numbness to left leg; strong left pedal pulse; good cap refill to LLE; tenderness to left lower back; limited ROM to back; vitals wnl; skin pdw Physician History: Patient is a 56-year-old white male who presents with a complaint of left lower back pain and some numbness in the left leg. He has a history of chronic back pain and was breaking up a dog fight when he not was knocked to the ground. He has had no trouble with his bowels or bladder the pain symptom does radiate into the left hip. Timing/Duration: today Method of Injury: fall Quality: radiating (Into left hip) Back Pain Location: lumbar spine Back Pain Radiation: lower legs Severity of Pain-Max: moderate Severity of Pain-Current: moderate Associated Symptoms: numbness in legs/feet Allergies/Adverse Reactions: iodine Allergy (Severe, Verified 05/13/22 15:59) Blisters states "skin comes off" povidone-iodine [From Betadine] Allergy (Severe, Verified 05/13/22 15:59) Blisters soap [From Betadine] Allergy (Severe, Verified 05/13/22 15:59) Blisters Sulfa (Sulfonamide Antibiotics) Allergy (Unknown, Verified 05/13/22 15:59) sulfamethoxazole [From Bactrim] Allergy (Unknown, Verified 05/13/22 15:59) trimethoprim [From Bactrim] Allergy (Unknown, Verified 05/13/22 15:59) IV DYE Allergy (Severe, Uncoded 05/13/22 15:59) Blisters Home Medications: Testosterone Cypionate 200 mg IM UD 10/13/17 [History] Clopidogrel Bisulfate [Clopidogrel] 75 mg PO 0600 12/02/19 [History] Glipizide Xl mg [Glucotrol Xl] 10 mg PO 0600,1800 12/02/19 [History] Metformin HCl 1,000 mg PO 0600,1800 06/21/20 [History] Liraglutide [Victoza 2-Zeb] 1.8 mg SQ [address]12/03/19 [History] Omeprazole 20 mg PO 00 12/09/19 [History] Diclofenac Sodium 50 mg [Voltaren 50 mg] 1 tab PO BID 01/27/22 [History] Tapentadol HCl [Nucynta] 100 mg PO Q4HPRN PRN 01/27/22 [History] Hx Tetanus, Diphtheria Vaccination/Date Given: Yes Hx Influenza Vaccination/Date Given: No Hx Pneumococcal Vaccination/Date Given: No Travel Risk - International Travel Have you traveled outside of the country in past 3 weeks: No - Coronavirus Screening Are you exhibiting any of the following symptoms?: No Close contact with a COVID-19 positive Pt in past 14-21 Days: No - Vaccine Status Have you recieved a Covid-19 vaccination: No - Review of Systems Constitutional: No Fever, No Chills Eyes: No Symptoms Ears, Nose, & Throat: No Symptoms Respiratory: No Cough, No Dyspnea Cardiac: No Chest Pain, No Edema, No Syncope Abdominal/Gastrointestinal: No Abdominal Pain, No Nausea, No Vomiting, No Diarrhea Genitourinary Symptoms: No Dysuria Musculoskeletal: No Back Pain, No Neck Pain Skin: No Rash Neurological: No Dizziness, No Focal Weakness, No Sensory Changes Psychological: No Symptoms Endocrine: No Symptoms All Other Systems: Reviewed and Negative - Past Medical History Pertinent Past Medical History: Yes Neurological History: No Pertinent History ENT History: No Pertinent History Cardiac History: Peripheral Vascular Disease Respiratory History: Sleep Apnea Endocrine Medical History: Diabetes Type II Musculoskeletal History: No Pertinent History GI Medical History: No Pertinent History History: No Pertinent History Psycho-Social History: No Pertinent History Male Reproductive Disorders: No Pertinent History Other Medical History: PT IS NIDDM, scrotal sac removed for a history of a spider bite that resulted in gangrene as stated per pt.abscess to right axilla - Past Surgical History Past Surgical History: Yes Neuro Surgical History: No Pertinent History Cardiac: Vascular Surgery Respiratory: No Pertinent History Gastrointestinal: No Pertinent History Genitourinary: No Pertinent History Musculoskeletal: Joint Replacement, Orthopedic Surgery Male Surgical History: No Pertinent History Other Surgical History: SCROTOM REMOVED AND REBUILT, RT KNEE REPLACEMENT, angioplasty to left leg ,neck surgery - Social History Smoking Status: Current every day smoker How long have you smoked: 40 yrs Exposure to second hand smoke: Yes Drug Use: none Patient Lives Alone: No - Nursing Vital Signs Nursing Vital Signs: Initial Vital Signs Temperature 98.3 F 05/13/22 16:00 Pain Scale Pain Intensity [Left Lower 6 Back] Pain Intensity 6 - Physical Exam General Appearance: no apparent distress, alert Eye Exam: PERRL/EOMI, eyes nml inspection Neck Exam: normal inspection, non-tender, supple, full range of motion, No meningismus, No midline tenderness Respiratory Exam: normal breath sounds, lungs clear, No respiratory distress Cardiovascular Exam: regular rate/rhythm, normal heart sounds Gastrointestinal Exam: soft, No tenderness, No mass Back Exam: vertebral tenderness (Tenderness in the left lumbar area especially near the SI joint) Extremity Exam: normal inspection, normal range of motion, No calf tenderness, No pedal edema Neurologic Exam: alert, oriented x 3, cooperative, 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, normal mood/affect, nml station & gait, sensation nml, No motor deficits Skin Exam: normal color, warm, dry, No rash SpO2 Interpretation: normal O2 Delivery: Room Air - Course Nursing assessment & vital signs reviewed: Yes - Radiology Exams L-Spine X-ray Interpretation: Interpreted by me, Other (There is disc space loss between L3 and L4 there is also extensive osteophyte formation bridging and some case) Ordered Tests: Active Orders 24 hr Category Date Time Status LUMBAR COMPLETE (MIN 4 VIEWS) Stat Exams 05/13/22 16:07 Taken - Progress Progress: unchanged - Departure Clinical Impression: Lumbar strain Condition: Stable Critical Care Time: No Referrals: SAMI ALLEN [Primary Care Provider] - Follow up/PCP as directed Instructions: Low Back Pain (DC)
--- NOTE | 2022-05-13 17:57 | XRAY ---
Exam: Five-view lumbar spine series from 05/13/2022. Comparison: 3 view lumbar spine series from 03/26/2021. Indication: 56-year-old male with injury while breaking up a dog fight today; low back pain radiating down left leg. Findings: AP, lateral, both oblique images, and a coned-down lateral film of the lumbosacral junction were obtained. I see no acute fracture, AP subluxation, or spondylolysis. No bone destruction is seen. I again note moderate to marked narrowing of the L3-L4 interspace height associated with vacuum disc phenomena and prominent anterior lateral vertebral endplate spurring. This is consistent with marked degenerative disc disease and appears similar to 03/26/2021. I note some mild relative compromise of the L3-L4 neural foramen on the lateral images as compared to other lumbar interspace levels. The other lumbar interspace heights are well-maintained. I do note some other mild lumbar vertebral endplate spurring. Some facet joint arthropathy is seen at L4-L5 on the right and at L5-S1 bilaterally (left greater than right). Mild vascular calcification is seen near the distal abdominal aortic bifurcation and proximal iliac arteries. The sacroiliac joints appear unremarkable. Impression: 1. No acute lumbar spine fracture, AP subluxation, or spondylolysis is seen. 2. Marked degenerative disc disease is seen at L3-L4 representing no significant change from 03/26/2021. There also appears to be mild to moderate degenerative compromise of the L3-L4 neural foramen, as seen on the lateral radiographs. 3. Other milder vertebral endplate spurring is seen throughout the lumbar spine. Larger vertebral endplate spurs are seen within the lower thoracic spine. The other lumbar interspace heights are well-maintained. 4. Some facet joint arthropathy is seen at L4-L5 and L5-S1, as discussed above.
== END 2022-05-13 16:42 | disposition home or self-care (01) ==
LOC: ED 15:08
DX: S39.012A Strain of muscle, fascia and tendon of lower back, initial encounter (principal); W01.0XXA Fall on same level from slipping, tripping and stumbling without subsequent striking against object, initial encounter; R20.2 Paresthesia of skin; E11.9 Type 2 diabetes mellitus without complications; Z79.02 Long term (current) use of antithrombotics/antiplatelets; Z79.84 Long term (current) use of oral hypoglycemic drugs; Z79.85 Long-term (current) use of injectable non-insulin antidiabetic drugs; Z79.899 Other long term (current) drug therapy; Z28.310 Unvaccinated for COVID-19; Z72.0 Tobacco use
CPT/HCPCS: 72110; 99282

== ENCOUNTER 2022-07-25 18:57 | Emergency (ER) | payer MEDICARE ==
[2022-07-25 19:39] VITALS: BP 163/77; PULSE 93; O2SAT 97
--- NOTE | 2022-07-25 20:25 | ERPHSYRPT ---
- History of Present Illness Time Seen by Provider: 07/25/22 19:50 Source: patient Exam Limitations: no limitations Patient Subjective Stated Complaint: pt states " My dogs were fighting and I broke them up." Triage Nursing Assessment: pt ambulatory to bed by self, alert and oriented x3, pt has 3 cm lacertion on L 4 th digit finger, bleeding controlled, pt had bloody paper towel wrapped around finger from home, tetanus shot utd, rating pain 2/10 Physician History: Patient is a 56-year-old male who has dogs and they were fighting and he suffered an injury to the left ring finger which is a flap type laceration on t he distal pad. He does have full motion and sensation. He also was hitting the dog with his other hand and has pain there as well. This occurred just prior to arrival Quality: painful Severity: mild Location: hands (There is a flap laceration to the left ring finger total length would be 3 cm) Possible Causes: other (Dog bite) Allergies/Adverse Reactions: iodine Allergy (Severe, Verified 07/25/22 19:29) Blisters states "skin comes off" povidone-iodine [From Betadine] Allergy (Severe, Verified 07/25/22 19:29) Blisters soap [From Betadine] Allergy (Severe, Verified 07/25/22 19:29) Blisters Sulfa (Sulfonamide Antibiotics) Allergy (Unknown, Verified 07/25/22 19:29) sulfamethoxazole [From Bactrim] Allergy (Unknown, Verified 07/25/22 19:29) trimethoprim [From Bactrim] Allergy (Unknown, Verified 07/25/22 19:29) IV DYE Allergy (Severe, Uncoded 07/25/22 19:29) Blisters Home Medications: Testosterone Cypionate 200 mg IM UD 10/13/17 [History] Clopidogrel Bisulfate [Clopidogrel] 75 mg PO 0600 12/02/19 [History] Glipizide Xl mg [Glucotrol Xl] 10 mg PO 0600,1800 12/02/19 [History] Metformin HCl 1,000 mg PO 0600,1800 12/02/19 [History] Liraglutide [Victoza 2-Zeb] 1.8 mg SQ 0600 12/03/19 [History] Omeprazole 20 mg PO 0600 12/09/19 [History] Diclofenac Sodium 50 mg [Voltaren 50 mg] 1 tab PO BID 01/27/22 [History] Tapentadol HCl [Nucynta] 100 mg PO Q4HPRN PRN 01/27/22 [History] Hx Tetanus, Diphtheria Vaccination/Date Given: Yes Hx Influenza Vaccination/Date Given: No Hx Pneumococcal Vaccination/Date Given: No Travel Risk - International Travel Have you traveled outside of the country in past 3 weeks: No - Coronavirus Screening Are you exhibiting any of the following symptoms?: No Close contact with a COVID-19 positive Pt in past 14-21 Days: No - Vaccine Status Have you recieved a Covid-19 vaccination: No - Review of Systems Constitutional: No Fever, No Chills Eyes: No Symptoms Ears, Nose, & Throat: No Symptoms Respiratory: No Cough, No Dyspnea Cardiac: No Chest Pain, No Edema, No Syncope Abdominal/Gastrointestinal: No Abdominal Pain, No Nausea, No Vomiting, No Diarrhea Genitourinary Symptoms: No Dysuria Musculoskeletal: No Back Pain, No Neck Pain Skin: No Rash Neurological: No Dizziness, No Focal Weakness, No Sensory Changes Psychological: No Symptoms Endocrine: No Symptoms All Other Systems: Reviewed and Negative - Past Medical History Pertinent Past Medical History: Yes Neurological History: No Pertinent History ENT History: No Pertinent History Cardiac History: Peripheral Vascular Disease Respiratory History: Sleep Apnea Endocrine Medical History: Diabetes Type II Musculoskeletal History: No Pertinent History GI Medical History: No Pertinent History History: No Pertinent History Psycho-Social History: No Pertinent History Male Reproductive Disorders: No Pertinent History Other Medical History: PT IS NIDDM, scrotal sac removed for a history of a spider bite that resulted in gangrene as stated per pt.abscess to right axilla - Past Surgical History Past Surgical History: Yes Neuro Surgical History: No Pertinent History Cardiac: Vascular Surgery Respiratory: No Pertinent History Gastrointestinal: No Pertinent History Genitourinary: No Pertinent History Musculoskeletal: Joint Replacement, Orthopedic Surgery Male Surgical History: No Pertinent History Other Surgical History: SCROTOM REMOVED AND REBUILT, RT KNEE REPLACEMENT, angioplasty to left leg ,neck surgery - Social History Smoking Status: Current every day smoker How long have you smoked: 40 yrs Exposure to second hand smoke: Yes Drug Use: none Patient Lives Alone: No - Nursing Vital Signs Nursing Vital Signs: Initial Vital Signs Temperature 98.4 F 02/12/23 19:38 Pulse Rate 93 H 07/25/22 19:38 Respiratory Rate 18 07/25/22 19:38 Blood Pressure 163/77 07/25/22 19:38 O2 Sat by Pulse Oximetry 97 07/25/22 19:38 Pain Scale Pain Intensity 2 - Physical Exam General Appearance: no apparent distress, alert Eye Exam: PERRL/EOMI, eyes nml inspection Ears, Nose, Throat Exam: normal ENT inspection, pharynx normal, moist mucous membranes Neck Exam: normal inspection, non-tender, supple, full range of motion Respiratory Exam: normal breath sounds, lungs clear, No respiratory distress Cardiovascular Exam: regular rate/rhythm, normal heart sounds Gastrointestinal/Abdomen Exam: soft, mass, No tenderness Back Exam: normal inspection, normal range of motion, No CVA tenderness, No vertebral tenderness Extremity Exam: normal inspection, normal range of motion, other Neurologic Exam: alert, oriented x 3, cooperative, normal mood/affect, sensation nml, No motor deficits Skin Exam: normal color, warm, dry SpO2 Interpretation: normal SpO2: 97 O2 Delivery: Room Air Procedures - Laceration/Wound Repair Left Volar Finger Time of Procedure: 20:23 (3 cm laceration distal pad left ring finger) Wound Location: Left (Ring finger distal pad dog bite) Wound Length (cm): 3 Wound's Depth, Shape: flap Wound Explored: no foreign body noted Irrigated: Yes Hibiclens Prep: Yes Anesthesia: 1% Lidocaine Volume Anesthetic (ccs): 3 Wound Debrided: moderate Wound Repaired With: sutures Suture Size/Type: 4-0 Number of Sutures: 3 Layer Closure?: No Sterile Dressing Applied?: Yes Splint Applied?: No - Course Nursing assessment & vital signs reviewed: Yes - Radiology Exams Left Hand X-ray Interpretation: Interpreted by me, Negative Right Hand X-ray Interpretation: Interpreted by me, Negative Ordered Tests: Active Orders 24 hr Category Date Time Status HAND (2 VIEW) Stat Exams 07/25/22 19:43 Taken HAND (2 VIEW) Stat Exams 07/25/22 19:43 Taken - Progress Progress: improved Medical Desision Making - Diagnostic Testing Diagnostic Testing: Diagnostic tests were ordered,analyzed, and reviewed by me and used in my medical decision making for this patient. Radiologic studies (if ordered) were read by me initially then discussed with the radiologist . - Risk of complications Low Risk: Low risk of morbidity from additional dx testing or treatment - Departure Departure Disposition: Home Clinical Impression: Dog bite Condition: Stable Critical Care Time: No Referrals: SAMI ALLEN [Primary Care Provider] - Follow up/PCP as directed Instructions: Animal Bites (DC) Prescriptions: Amox Tr/Potass Clav. 875 mg [Augmentin 875-125 Tablet] 875 mg PO BID 10 Days #20 tablet Bacitracin Packet [Baciguent Packet] 0.9 gm TP STAT 10 Days #10 packet
[2022-07-25] MEDS ORDERED: BACIGUENT PACKET TP ONE (20:30)
[2022-07-25] MEDS ORDERED: Augmentin 875-125 Tablet PO ONE (20:30)
[2022-07-25] MEDS ORDERED: Augmentin 875-125 Tablet ONE (20:43)
--- NOTE | 2022-07-26 09:00 | XRAY ---
Indication: Pain following injury. Comparison: None 2 view right hand demonstrates osteopenia, mild degenerative changes all IP joints, mild/moderate degenerative changes all MCP joints greatest third MCP, and distal forearm vascular calcifications. No other bony, articular, or soft tissue abnormalities.
--- NOTE | 2022-07-26 09:02 | XRAY ---
Indication: Left third finger dogbite. Comparison: None 2 view left hand demonstrates mild/moderate degenerative changes all IP and MCP joints. Additional moderate degenerative changes of distal radial ulnar articulation. Scattered distal forearm vascular calcifications. No other bony, articular, or soft tissue abnormalities.
== END 2022-07-25 20:55 | disposition home or self-care (01) ==
LOC: ED 18:57
DX: S61.255A Open bite of left ring finger without damage to nail, initial encounter (principal); W54.0XXA Bitten by dog, initial encounter; M79.641 Pain in right hand; E11.9 Type 2 diabetes mellitus without complications; Z79.02 Long term (current) use of antithrombotics/antiplatelets; Z79.84 Long term (current) use of oral hypoglycemic drugs; Z79.85 Long-term (current) use of injectable non-insulin antidiabetic drugs; Z79.899 Other long term (current) drug therapy; Z28.310 Unvaccinated for COVID-19; Z72.0 Tobacco use
CPT/HCPCS: 12002; 73120; 99283; A9270-GY

== ENCOUNTER 2023-08-08 06:21 | Emergency (ER) | payer MEDICARE ==
[2023-08-08 07:10] VITALS: TEMP 97.2; O2SAT 98
--- NOTE | 2023-08-08 07:44 | ERPHSYRPT ---
- History of Present Illness Time Seen by Provider: 08/08/23 07:40 Source: patient Exam Limitations: no limitations Patient Subjective Stated Complaint: Pt states "my has been falling and I have been catcing her and I think I have tore a muscle or something in my lower back." Triage Nursing Assessment: Pt presented alert and oriented X 3, skin pwd. Pt ambulates with an upright steady gait, able to speak clear full sentences. PT resting comfortably on the bed. Physician History: Patient is a 57-year-old white male who presents with a complaint of low back pain. This is a recurring problem for him his is also a patient in the ER she has been falling frequently and does at this time of a subdural hematoma and is going to be flown to [place]. He feels that in trying to catch her he may have strained or injured his back in some way his pain is on the lower back tending toward the right side. Timing/Duration: today Method of Injury: lifting Quality: aching Back Pain Location: lumbar spine Back Pain Radiation: buttocks Severity of Pain-Max: moderate Severity of Pain-Current: mild Modifying Factors: Improves With: movement Previous symptoms: same symptoms as today Allergies/Adverse Reactions: iodine Allergy (Severe, Verified 07/25/22 19:29) Blisters states "skin comes off" povidone-iodine [From Betadine] Allergy (Severe, Verified 07/25/22 19:29) Blisters soap [From Betadine] Allergy (Severe, Verified 07/25/22 19:29) Blisters Sulfa (Sulfonamide Antibiotics) Allergy (Unknown, Verified 07/25/22 19:29) sulfamethoxazole [From Bactrim] Allergy (Unknown, Verified 07/25/22 19:29) trimethoprim [From Bactrim] Allergy (Unknown, Verified 07/25/22 19:29) IV DYE Allergy (Severe, Uncoded 07/25/22 19:29) Blisters Home Medications: Testosterone Cypionate 200 mg IM UD 10/13/17 [History] Clopidogrel Bisulfate [Clopidogrel] 75 mg PO 0600 12/02/19 [History] Glipizide Xl mg [Glucotrol Xl] 10 mg PO 0600,1800 12/02/19 [History] Metformin HCl 1,000 mg PO 0600,1800 12/02/19 [History] Liraglutide [Victoza 2-Zeb] 1.8 mg SQ 0600 12/03/19 [History] Omeprazole 20 mg PO 0600 12/09/19 [History] Diclofenac Sodium 50 mg [Voltaren 50 mg] 1 tab PO BID 01/27/22 [History] Tapentadol HCl [Nucynta] 100 mg PO Q4HPRN PRN 01/27/22 [History] Hx Tetanus, Diphtheria Vaccination/Date Given: Yes Hx Influenza Vaccination/Date Given: No Hx Pneumococcal Vaccination/Date Given: No Immunizations Up to Date: Yes Travel Risk - International Travel Have you traveled outside of the country in past 3 weeks: No - Coronavirus Screening Are you exhibiting any of the following symptoms?: No Close contact with a COVID-19 positive Pt in past 14-21 Days: No - Vaccine Status Have you recieved a Covid-19 vaccination: No - Review of Systems Constitutional: No Fever, No Chills Eyes: No Symptoms Ears, Nose, & Throat: No Symptoms Respiratory: No Cough, No Dyspnea Cardiac: No Chest Pain, No Edema, No Syncope Abdominal/Gastrointestinal: No Abdominal Pain, No Nausea, No Vomiting, No Diarrhea Genitourinary Symptoms: No Dysuria Musculoskeletal: Back Pain, No Neck Pain Skin: No Rash Neurological: No Dizziness, No Focal Weakness, No Sensory Changes Psychological: No Symptoms Endocrine: No Symptoms All Other Systems: Reviewed and Negative - Past Medical History Pertinent Past Medical History: Yes Neurological History: No Pertinent History ENT History: No Pertinent History Cardiac History: Peripheral Vascular Disease Respiratory History: Sleep Apnea Endocrine Medical History: Diabetes Type II Musculoskeletal History: No Pertinent History GI Medical History: No Pertinent History History: No Pertinent History Psycho-Social History: No Pertinent History Male Reproductive Disorders: No Pertinent History Other Medical History: PT IS NIDDM, scrotal sac removed for a history of a spider bite that resulted in gangrene as stated per pt.abscess to right axilla - Past Surgical History Past Surgical History: Yes Neuro Surgical History: No Pertinent History Cardiac: Vascular Surgery Respiratory: No Pertinent History Gastrointestinal: No Pertinent History Genitourinary: No Pertinent History Musculoskeletal: Joint Replacement, Orthopedic Surgery Male Surgical History: No Pertinent History Other Surgical History: SCROTOM REMOVED AND REBUILT, RT KNEE REPLACEMENT, angioplasty to left leg ,neck surgery - Social History Smoking Status: Current every day smoker How long have you smoked: 40 yrs Exposure to second hand smoke: Yes Drug Use: none Patient Lives Alone: No - Nursing Vital Signs Nursing Vital Signs: Initial Vital Signs Temperature 97.2 F 08/08/23 07:06 Pulse Rate 99 H 08/08/23 07:06 Respiratory Rate 18 08/08/23 07:06 Blood Pressure 164/82 08/08/23 07:06 O2 Sat by Pulse Oximetry 98 08/08/23 07:06 Pain Scale Pain Intensity [] 5 Pain Intensity 5 - Physical Exam General Appearance: mild distress, alert Eye Exam: PERRL/EOMI, eyes nml inspection Neck Exam: normal inspection, non-tender, supple, full range of motion, No meningismus, No midline tenderness Respiratory Exam: normal breath sounds, lungs clear, No respiratory distress Cardiovascular Exam: regular rate/rhythm, normal heart sounds Gastrointestinal Exam: soft, No tenderness, No mass Back Exam: vertebral tenderness, decreased range of motion, muscle spasm Extremity Exam: normal inspection, normal range of motion, No calf tenderness, No pedal edema Neurologic Exam: alert, oriented x 3, cooperative, 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 support 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 II-XII 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 as tested, normal mood/affect, nml station & gait, sensation nml, No motor deficits Skin Exam: normal color, warm, dry, No rash SpO2: 98 - Course Nursing assessment & vital signs reviewed: Yes - CT Exams Lumbar Spine CT Interpretation: Tele-radiologist Report, Other (Findings of degenerative changes nothing acute) Ordered Tests: Active Orders 24 hr Category Date Time Status LUMBAR SPINE W/O [CT] Stat Exams 08/08/23 07:09 Completed - Progress Progress: unchanged Medical Desision Making - Diagnostic Testing Radiological Interpretation: Reviewed by me - Risk of complications Low Risk: Low risk of morbidity from additional dx testing or treatment - Departure Departure Disposition: Home Clinical Impression: Lumbar pain, DDD (degenerative disc disease) Condition: Stable Critical Care Time: No Referrals: SAMI ALLEN [Primary Care Provider] - Follow up/PCP as directed Instructions: Low Back Pain (DC) Prescriptions: Prednisone 10 mg [Deltasone 10 mg] 10 mg PO TID #12 tablet
--- NOTE | 2023-08-08 08:02 | XRAY ---
CLINICAL HISTORY: pain TECHNIQUE: Multiple contiguous axial images were obtained through the lumbar spine without IV contrast. Sagittal and coronal reformatted images were obtained from the axial data. CT scan was performed according to ALARA (as low as reasonable achievable. COMPARISON: None. FINDINGS: The normal lordotic curvature of the lumbar spine is maintained. Lumbar vertebral bodies are maintained in height and alignment. No vertebral destructive changes are seen. Degenerative changes involving lumbar spine in the form of marginal osteophytes and facet arthrosis at multiple levels. End plate sclerosis with reduction of disc space with vacuum phenomenon is noted L3-L4 level.- degenerative changes. L3-L4: Posterior disc osteophyte complex which indenting ventral thecal sac and causes bilateral lateral recesses and foraminal narrowing. L2-L3, L4-L5 and L5-S1 Mild posterior disc bulge which indenting ventral thecal sac without significant foraminal or lateral recess narrowing at the respective levels. Paravertebral soft tissues are unremarkable. IMPRESSION: 1. Degenerative changes in lumbar spine. 2. L3-L4: Posterior disc osteophyte complex which indenting ventral thecal sac and causes bilateral lateral recesses and foraminal narrowing. 3. End plate sclerosis with reduction of disc space with vacuum phenomenon is noted L3-L4 level.- degenerative changes. Electronically Signed by: Dr. Rocky Guillermo MD. (08/08/2023 07:59:20 EST)
[2023-08-08 08:09] VITALS: BP 158/70; PULSE 78; RESP 20
== END 2023-08-08 08:25 | disposition home or self-care (01) ==
LOC: ED 06:21
DX: M51.36 Other intervertebral disc degeneration, lumbar region (principal); M54.50 Low back pain, unspecified; E11.9 Type 2 diabetes mellitus without complications; Z79.52 Long term (current) use of systemic steroids; Z79.02 Long term (current) use of antithrombotics/antiplatelets; Z79.84 Long term (current) use of oral hypoglycemic drugs; Z79.85 Long-term (current) use of injectable non-insulin antidiabetic drugs; Z79.899 Other long term (current) drug therapy; Z28.310 Unvaccinated for COVID-19; Z72.0 Tobacco use
CPT/HCPCS: 72131; 99282

== ENCOUNTER 2023-11-17 11:34 | Emergency (ER) | payer MEDICARE ==
[2023-11-17 11:46] VITALS: TEMP 98.7
[2023-11-17] MEDS ORDERED: Sodium Chloride 0.9% 1000 ML 1,000 ML ONE (12:38)
[2023-11-17] MEDS: Sodium Chloride 0.9% 1000 ML 1,000 ML IV STA (12:50)
[2023-11-17 12:53] LABS: Appearance Clear (Clear); Bacteria None Seen /HPF (None Seen); Bilirubin Negative (Negative); Blood Negative (Negative); Epithelial Cells None Seen /HPF (None Seen); Glucose, Urine 500 mg/dL (Negative); Ketones Trace (Negative); Leukocyte Esterase Trace (Negative); Nitrite Negative (Negative); Ph 5.5 (4.6-8.0); Protein,Urine Dip 30 (Negative); RBC 0-2 /HPF (0-5); Specific Gravity 1.025 (1.005-1.030)
[2023-11-17 12:54] LABS: ADD URINE CULTURE? YES (NO)
[2023-11-17 12:59] LABS: Absolute Neutrophil Ct (ANC) 4.91 x10^3/uL (1.78-5.38); BASOPHIL % 0.9 % (0.2-1.2); Basophil (Absolute #) 0.06 x10^3/uL (0.01-0.08); Eosinophil % 2.7 % (0.8-7.0); Eosinophil (Absolute #) 0.19 x10^3/uL (0.04-0.54); Hematocrit 38.9 % (40.1-51.0); Hemoglobin 12.7 g/dL (13.7-175); IMMATURE GRAN # 0.02 x10^3u/L (0.001-0.031); IMMATURE GRAN % 0.3 % (0.001-0.429); Lymphocyte (Absolute #) 1.27 x10^3/uL (1.32-3.57); Lymphocytes % 18.2 % (21.8-53.1); Mean Corpuscular Hemoglobin 31.7 pg (25.7-32.2); Mean Corpuscular Hgb Concent. 32.6 g/dL (32.3-36.5); Mean Platelet Volume 8.8 fL (9.4-12.4); Monocyte (Absolute #) 0.53 x10^3/uL (0.30-0.82); Monocytes % 7.6 % (5.3-12.2); Neutrophil % 70.3 % (34.0-67.9); Platelet Count 261 x10^3/uL (163-337); Red Blood Count 4.01 x10^6/uL (4.63-6.08); Red Cell Distribution Width 13.4 % (11.6-14.4)
[2023-11-17 13:01] VITALS: PULSE 96
--- NOTE | 2023-11-17 13:14 | XRAY ---
CLINICAL HISTORY: dizzines COMPARISON: None. TECHNIQUE: Multiplanar CT brain performed without intravenous contrast. One of the following dose reduction techniques was utilized for this exam.Automated exposure control, adjustment of the mA and/or kV according to patient size, and use of iterative reconstruction. FINDINGS: Marginal prominence extra axial CSF space at posterior aspect of posterior fossa along cerebellar convexity a non-specific finding, for clinical correlation. The visualized brain parenchyma shows normal appearance. [place]-white matter differentiation is maintained. No midline shifts or deformity. No intracerebral or extra axial hematoma. Normal size and configuration of the cerebral ventricles. Normal CT appearance of the posterior fossa structures namely the cerebellar hemispheres, brainstem and cerebellar peduncles. The IACs are unremarkable. The cerebello-pontine angles are clear. The osseous structures in the skull base are unremarkable. No definite calvarium fractures. Few small retention cyst right maxillary sinus. Rest of the paranasal sinuses are clear. IMPRESSION: 1. Marginal prominence extra axial CSF space at posterior aspect of posterior fossa along cerebellar convexity a non-specific finding, for clinical correlation. 2. Few small retention cyst right maxillary sinus. Rest of the paranasal sinuses are clear. 3. No intracranial hematoma, established ischemic infarct or mass affect noted. Electronically Signed by: Charley Lyons MD. (11/17/2023 13:11:23 EDT)
[2023-11-17 13:16] LABS: Amphetamine,Urine NEGATIVE (NEGATIVE); Barbiturate,Urine NEGATIVE (NEGATIVE); Benzodiazepine,Urine NEGATIVE (NEGATIVE); Cocaine,Urine NEGATIVE (NEGATIVE); Methadone,Urine NEGATIVE (NEGATIVE); PCP,Urine NEGATIVE (NEGATIVE); THC,Urine NEGATIVE (NEGATIVE)
[2023-11-17 13:24] LABS: Opiate,Urine NEGATIVE (NEGATIVE)
--- NOTE | 2023-11-17 13:26 | XRAY ---
CLINICAL HISTORY: dizziness COMPARISON: None. TECHNIQUE: X ray of the chest, frontal portable view. FINDINGS: A tiny dense left lower lobe nodule, most likely corresponding to granuloma. No evidence of any focal area of consolidation. Normal configuration of the mediastinum. Despite portable projection, there is a normal configuration of the mediastinum and the cardiac size is normal. Bulky esperanza and prominent vascular markings, probable congestion. The tracheal lucency is centrally placed. The costophrenic and cardiophrenic angles are clear. Unremarkable thoracic bony cage with no definite fractures detected. Cardiac monitoring electrodes. IMPRESSION: 1. Bulky esperanza and prominent vascular markings, probable congestion. Correlate clinically. 2. Probable left lower lobe tiny calcific granuloma. Electronically Signed by: Charley Lyons MD. (11/17/2023 13:22:59 EDT)
[2023-11-17 13:31] LABS: ALBUMIN 3.8 g/dL (3.5-5.0); ALKALINE PHOSPHATASE 64 U/L (38-126); BLOOD UREA NITROGEN 24 mg/dL (9-20); CHLORIDE 105 mmol/L (98-107); Carbon Dioxide 27 mmol/L (22-30); Creatinine 1 1.21 mg/dL (0.66-1.25); EST GLOMERULAR FILTRATION RATE 69.4 ML/MIN; ETHYL ALCOHOL < 10 mg/dL (0-10); Glucose 130 mg/dL (74-106); MAGNESIUM 1.6 mg/dL (1.6-2.3); NT PRO BNPII 395 pg/mL (<300); Potassium 4.8 mmol/L (3.5-5.1); SGOT/AST 32 U/L (17-59); SGPT/ALT 30 U/L (0-50); SODIUM 137 mmol/L (135-145); Total Protein 6.7 g/dL (6.3-8.2)
--- NOTE | 2023-11-17 14:00 | ERPHSYRPT ---
- History of Present Illness Time Seen by Provider: 11/17/23 11:58 Source: patient, family Exam Limitations: no limitations Patient Subjective Stated Complaint: PT states "I have had this problem for the past few months but it has gotten worse in the past couple of weeks. And my head is killing me." Triage Nursing Assessment: Pt presented alert and oriented X 3, skin pwd. pt ambulates with an unsteady gait, able to speak in clear full sentencs. PT in no apparent respiratory distress. Physician History: 58-year-old male with history of hypertension, hyperlipidemia, diabetes mellitus presented in the ER with 3 months history of off-and-on dizziness/lightheadedness. Patient reports it happens when he is standing, feels wobbly, unbalanced and as if he is going to pass out. He had a couple of time fallen over as well. Patient denies any focal numbness tingling or weakness. Denies any associated palpitations or shortness of breath during the episodes. Lately he is started to have generalized headache moderate intensity sharp in nature with no new focal neurosymptoms. No fever or chills reported. Denies any ear infections or tinnitus. Allergies/Adverse Reactions: iodine Allergy (Severe, Verified 10/19/23 14:13) Blisters states "skin comes off" povidone-iodine [From Betadine] Allergy (Severe, Verified 10/19/23 14:13) Blisters soap [From Betadine] Allergy (Severe, Verified 10/19/23 14:13) Blisters Sulfa (Sulfonamide Antibiotics) Allergy (Unknown, Verified 10/19/23 14:13) sulfamethoxazole [From Bactrim] Allergy (Unknown, Verified 10/19/23 14:13) trimethoprim [From Bactrim] Allergy (Unknown, Verified 10/19/23 14:13) IV DYE Allergy (Severe, Uncoded 07/25/22 19:29) Blisters Home Medications: Testosterone Cypionate 200 mg IM UD 10/13/17 [History] Clopidogrel Bisulfate [Clopidogrel] 75 mg PO 0600 12/02/19 [History] Glipizide Xl mg [Glucotrol Xl] 10 mg PO 0600,1800 12/02/19 [History] Metformin HCl 1,000 mg PO 0600,1800 12/02/19 [History] Omeprazole 20 mg PO 0600 12/09/19 [History] Diclofenac Sodium 50 mg [Voltaren 50 mg] 1 tab PO BID 01/27/22 [History] Gabapentin [Gabapentin ER] 600 mg PO DAILY 10/19/23 [History] Lisinopril 10 mg [Zestril 10 MG] 10 mg PO DAILY 10/19/23 [History] Misoprostol [Cytotec] 200 mcg PO BID 10/19/23 [History] Semaglutide [Ozempic] 0.25 mg SQ WEEKLY 10/19/23 [History] Hx Tetanus, Diphtheria Vaccination/Date Given: Yes Hx Influenza Vaccination/Date Given: No Hx Pneumococcal Vaccination/Date Given: No Immunizations Up to Date: No Travel Risk - International Travel Have you traveled outside of the country in past 3 weeks: No - Emerging Infectious Disease Are you exhibiting symptoms associated with any current EIDs: No - Review of Systems Constitutional: No Symptoms Eyes: No Symptoms Ears, Nose, & Throat: No Symptoms Respiratory: No Symptoms Cardiac: No Symptoms Abdominal/Gastrointestinal: No Symptoms Genitourinary Symptoms: No Symptoms Musculoskeletal: No Symptoms Skin: No Symptoms Neurological: Dizziness, Headache Psychological: No Symptoms Endocrine: No Symptoms Hematologic/Lymphatic: No Symptoms - Past Medical History Pertinent Past Medical History: Yes Neurological History: No Pertinent History ENT History: No Pertinent History Cardiac History: Peripheral Vascular Disease Respiratory History: Sleep Apnea Endocrine Medical History: Diabetes Type II Musculoskeletal History: No Pertinent History GI Medical History: No Pertinent History History: No Pertinent History Psycho-Social History: No Pertinent History Male Reproductive Disorders: No Pertinent History Other Medical History: PT IS NIDDM, scrotal sac removed for a history of a spider bite that resulted in gangrene as stated per pt.abscess to right axilla - Past Surgical History Past Surgical History: Yes Neuro Surgical History: No Pertinent History Cardiac: Vascular Surgery Respiratory: No Pertinent History Gastrointestinal: No Pertinent History Genitourinary: No Pertinent History Musculoskeletal: Joint Replacement, Orthopedic Surgery Male Surgical History: No Pertinent History Other Surgical History: SCROTOM REMOVED AND REBUILT, RT KNEE REPLACEMENT, angioplasty to left leg ,neck surgery - Social History Smoking Status: Current every day smoker How long have you smoked: 40 yrs Exposure to second hand smoke: Yes Drug Use: none Patient Lives Alone: No - Social Determinants of Health Will the patient participate in the screening: Declined to provide - Nursing Vital Signs Nursing Vital Signs: Initial Vital Signs Temperature 98.7 F 11/17/23 11:41 Pulse Rate 104 H 11/17/23 11:41 Respiratory Rate 20 11/17/23 11:41 Blood Pressure 85/54 11/17/23 11:41 O2 Sat by Pulse Oximetry 98 11/17/23 11:41 Pain Scale Pain Intensity 5 - Farn Coma Scale Best Eye Response (Trego): (4) open spontaneously Best Verbal Response (Fran): (5) oriented Best Motor Response (Fran): (6) obeys commands Fran Total: 15 - Physical Exam General Appearance: no apparent distress, alert Eye Exam: bilateral eye: normal inspection, PERRL, EOMI Ears, Nose, Throat Exam: normal ENT inspection Neck Exam: normal inspection, non-tender, supple, full range of motion Respiratory: normal breath sounds, lungs clear Cardiovascular: regular rate/rhythm, normal heart sounds Gastrointestinal: soft, normal bowel sounds, No tenderness Back Exam: normal inspection, normal range of motion Extremity Exam: normal inspection, normal range of motion, pelvis stable Mental Status: alert, oriented x 3, cooperative parts washer Exam: normal hearing, normal speech, PERRL Coordination/Gait: normal finger to nose, positive Romberg's sign, No normal gait Motor/Sensory: no motor deficit, no sensory deficit, no pronator drift, negative Babinski's sign DTR: bicep (R): 2+, bicep (L): 2+, knee (R): 2+, knee (L): 2+ Skin Exam: normal color SpO2 Interpretation: normal SpO2: 98 O2 Delivery: Room Air - Course EKG Interpreted by Me: RATE (61), Sinus Rhythm, NORMAL AXIS, NORMAL INTERVALS, Non-specific ST Changes Ordered Tests: Active Orders 24 hr Category Date Time Status Telehealth Director STAT Care 11/17/23 12:35 Active EKG-ER Only STAT Care 11/17/23 12:34 Active IV Insertion STAT Care 11/17/23 12:34 Active Orthostatic Vital Signs STAT Care 11/17/23 12:34 Active CHEST 1 VIEW (PORTABLE) Stat Exams 11/17/23 12:34 Completed HEAD WITHOUT CONTRAST [CT] Stat Exams 11/17/23 12:35 Completed CBC W DIFF Stat Lab 11/17/23 12:50 Completed CMP Stat Lab 11/17/23 12:50 Completed CULTURE,URINE Stat Lab 11/17/23 12:40 Received ETHYL ALCOHOL Stat Lab 11/17/23 12:50 Completed Lactic Acid Stat Lab 11/17/23 12:34 Completed MAGNESIUM Stat Lab 11/17/23 12:50 Completed NT PRO BNPII Stat Lab 11/17/23 12:50 Completed TROPONIN Q4H Lab 11/17/23 12:50 Completed TROPONIN Q4H Lab 11/17/23 16:45 Ordered TROPONIN Q4H Lab 11/17/23 20:45 Ordered UA W/RFX UR CULTURE Stat Lab 11/17/23 12:40 Completed Urine Triage Profile Stat Lab 11/17/23 12:40 Completed Medication Summary Discontinued Medications Generic Name Dose Route Start Last Admin Trade Name Nkechi PRN Reason Stop Dose Admin Acetaminophen 975 mg 11/17/23 13:58 11/17/23 14:15 Acetaminophen 325 Mg Tablet PO 11/17/23 13:59 975 mg STAT STA Administration Acetaminophen Confirm 11/17/23 14:12 Acetaminophen 325 Mg Tablet Administered 11/17/23 14:13 Dose 975 mg .ROUTE .STK-MED ONE Diphenhydramine HCl 25 mg 11/17/23 13:57 11/17/23 14:17 Diphenhydramine Hcl 50 Mg/Ml Vial IV 11/17/23 13:58 25 mg STAT ONE Administration Diphenhydramine HCl Confirm 11/17/23 14:11 Diphenhydramine Hcl 50 Mg/Ml Vial Administered 11/17/23 14:12 Dose 50 mg .ROUTE .STK-MED ONE Sodium Chloride 1,000 mls @ 999 mls/hr 11/17/23 12:34 11/17/23 14:18 Sodium Chloride 0.9% 1000 Ml IV 11/17/23 13:34 Infused .Q1H1M STA Infusion Sodium Chloride Confirm 11/17/23 12:38 Sodium Chloride 0.9% 1000 Ml Administered 11/17/23 12:39 Dose 1,000 mls @ ud .ROUTE .STK-MED ONE Metoclopramide HCl 10 mg 11/17/23 13:57 11/17/23 14:20 Metoclopramide Hcl 10 Mg/2 Ml Vial IV 11/17/23 13:58 10 mg STAT ONE Administration Metoclopramide HCl Confirm 11/17/23 14:12 Metoclopramide Hcl 10 Mg/2 Ml Vial Administered 11/17/23 14:13 Dose 10 mg .ROUTE .K-MED ONE Lab/Rad Data: Laboratory Result Diagrams 11/17/23 12:50 11/17/23 12:50 Laboratory Results 11/17/23 11/17/23 11/17/23 Range/Units 12:50 12:50 12:50 WBC 7.0 (4.23-9.07) x10^3/uL RBC 4.01 L (4.63-6.08) x10^6/uL Hgb 12.7 L (13.7-175) g/dL Hct 38.9 L (40.1-51.0) % MCV 97.0 H (79.0-92.2) fL MCH 31.7 (25.7-32.2) pg MCHC 32.6 (32.3-36.5) g/dL RDW 13.4 (11.6-14.4) % Plt Count 261 (163-337) x10^3/uL MPV 8.8 L (9.4-12.4) fL Gran % 70.3 H (34.0-67.9) % Immature Gran % (Auto) 0.3 (0.001-0.429) % Nucleat RBC Rel Count 0.0 (0.00-0.2) % Eos # (Auto) 0.19 (0.04-0.54) x10^3/uL Immature Gran # (Auto) 0.02 (0.001-0.031) x10^3u/L Absolute Lymphs (auto) 1.27 L (1.32-3.57) x10^3/uL Absolute Monos (auto) 0.53 (0.30-0.82) x10^3/uL Absolute Nucleated RBC 0.00 (0.00-0.012) x10^3u/L Lymphocytes % 18.2 L (21.8-53.1) % Monocytes % 7.6 (5.3-12.2) % Eosinophils % 2.7 (0.8-7.0) % Basophils % 0.9 (0.2-1.2) % Absolute Granulocytes 4.91 (1.78-5.38) x10^3/uL Basophils # 0.06 (0.01-0.08) x10^3/uL Sodium 137 (135-145) mmol/L Potassium 4.8 (3.5-5.1) mmol/L Chloride 105 (98-107) mmol/L Carbon Dioxide 27 (22-30) mmol/L Anion Gap 11.0 (5-15) MEQ/L BUN 24 H (9-20) mg/dL Creatinine 1.21 (0.66-1.25) mg/dL Estimated GFR 69.4 ML/MIN Glucose 130 H (74-106) mg/dL Lactic Acid (0.4-2.0) Calcium 9.0 (8.4-10.2) mg/dL Magnesium 1.6 (1.6-2.3) mg/dL Total Bilirubin 0.40 (0.2-1.3) mg/dL AST 32 (17-59) U/L ALT 30 (0-50) U/L Alkaline Phosphatase 64 (38-126) U/L Troponin I < 0.012 (0.000-0.033) ng/mL NT-Pro-B Natriuret Pep 395 (<300) pg/mL Serum Total Protein 6.7 (6.3-8.2) g/dL Albumin 3.8 (3.5-5.0) g/dL Urine Color (Yellow) Urine Appearance (Clear) Urine pH (4.6-8.0) Ur Specific [place] (1.005-1.030) Urine Protein (Negative) Urine Glucose (UA) (Negative) mg/dL Urine Ketones (Negative) Urine Blood (Negative) Urine Nitrite (Negative) Urine Bilirubin (Negative) Urine Urobilinogen (0.2) mg/dL Ur Leukocyte Esterase (Negative) U Hyaline Cast (Auto) (0-2) /LPF Urine Microscopic RBC (0-5) /HPF Urine Microscopic WBC (0-5) /HPF Ur Epithelial Cells (None Seen) /HPF Urine Bacteria (None Seen) /HPF Urine Culture Reflexed (NO) Urine Opiates Level (NEGATIVE) Ur Methadone (NEGATIVE) Urine Barbiturates (NEGATIVE) Ur Phencyclidine (PCP) (NEGATIVE) Urine Amphetamine (NEGATIVE) U Benzodiazepine Level (NEGATIVE) Urine Cocaine (NEGATIVE) Urine Marijuana (THC) (NEGATIVE) Ethyl Alcohol < 10 (0-10) mg/dL 0611/17/23 11/17/23 Range/Units 12:40 12:40 12:34 WBC (4.23-9.07) x10^3/uL RBC (4.63-6.08) x10^6/uL Hgb (13.7-175) g/dL Hct (40.1-51.0) % MCV (79.0-92.2) fL MCH (25.7-32.2) pg MCHC (32.3-36.5) g/dL RDW (11.6-14.4) % Plt Count (163-337) x10^3/uL MPV (9.4-12.4) fL Gran % (34.0-67.9) % Immature Gran % (Auto) (0.001-0.429) % Nucleat RBC Rel Count (0.00-0.2) % Eos # (Auto) (0.04-0.54) x10^3/uL Immature Gran # (Auto) (0.001-0.031) x10^3u/L Absolute Lymphs (auto) (1.32-3.57) x10^3/uL Absolute Monos (auto) (0.30-0.82) x10^3/uL Absolute Nucleated RBC (0.00-0.012) x10^3u/L Lymphocytes % (21.8-53.1) % Monocytes % (5.3-12.2) % Eosinophils % (0.8-7.0) % Basophils % (0.2-1.2) % Absolute Granulocytes (1.78-5.38) x10^3/uL Basophils # (0.01-0.08) x10^3/uL Sodium (135-145) mmol/L Potassium (3.5-5.1) mmol/L Chloride (98-107) mmol/L Carbon Dioxide (22-30) mmol/L Anion Gap (5-15) MEQ/L BUN (9-20) mg/dL Creatinine (0.66-1.25) mg/dL Estimated GFR ML/MIN Glucose (74-106) mg/dL Lactic Acid 1.8 (0.4-2.0) Calcium (8.4-10.2) mg/dL Magnesium (1.6-2.3) mg/dL Total Bilirubin (0.2-1.3) mg/dL AST (17-59) U/L ALT (0-50) U/L Alkaline Phosphatase (38-126) U/L Troponin I (0.000-0.033) ng/mL NT-Pro-B Natriuret Pep (<300) pg/mL Serum Total Protein (6.3-8.2) g/dL Albumin (3.5-5.0) g/dL Urine Color Yellow (Yellow) Urine Appearance Clear (Clear) Urine pH 5.5 (4.6-8.0) Ur Specific [place] 1.025 (1.005-1.030) Urine Protein 30 (Negative) Urine Glucose (UA) 500 A (Negative) mg/dL Urine Ketones Trace A (Negative) Urine Blood Negative (Negative) Urine Nitrite Negative (Negative) Urine Bilirubin Negative (Negative) Urine Urobilinogen 1.0 A (0.2) mg/dL Ur Leukocyte Esterase Trace A (Negative) U Hyaline Cast (Auto) 6-10 A (0-2) /LPF Urine Microscopic RBC 0-2 (0-5) /HPF Urine Microscopic WBC 3-5 (0-5) /HPF Ur Epithelial Cells None Seen (None Seen) /HPF Urine Bacteria None Seen (None Seen) /HPF Urine Culture Reflexed YES (NO) Urine Opiates Level NEGATIVE (NEGATIVE) Ur Methadone NEGATIVE (NEGATIVE) Urine Barbiturates NEGATIVE (NEGATIVE) Ur Phencyclidine (PCP) NEGATIVE (NEGATIVE) Urine Amphetamine NEGATIVE (NEGATIVE) U Benzodiazepine Level NEGATIVE (NEGATIVE) Urine Cocaine NEGATIVE (NEGATIVE) Urine Marijuana (THC) NEGATIVE (NEGATIVE) Ethyl Alcohol (0-10) mg/dL - Progress Progress: improved Progress Note: 11/17/23 14:53 58 years old diabetic hypertensive is evaluated for worsening dizziness, headache. Symptoms been going on for quite some time and lately getting worse w ith balance issues as well. Patient has a positive Romberg. No other focal neurodeficit. Also has a positive orthostatics. Given fluid bolus. EKG showed sinus rhythm with no ST elevation and negative initial troponin. Normal white count and fairly unremarkable chemistries. Symptomatic treatment for headache and is headache free on reevaluation. Chest x-ray negative. CT head is negative for intracranial bleed, midline shift or mass effect. It did show mild prominence of extra-axial CSF space posterior to cerebellar convexity and posterior fossa. Patient is feeling better on reevaluation. Taking into account patient's history, exam findings, workup, I believe patient needs to be admitted for further evaluation including neurology consult and may need adjustment in blood pressure medications. Patient is made aware of workup and plan of admission but he does not want to stay in the hospital at all and wants to leave AGAINST MEDICAL ADVICE. He does understand the risk of leaving AMA which would include but not limited to delaying the diagnostic process, worsening of condition/morbidity/permanent disability leading to but still wants to leave AMA. He is not confused or altered at all. Patient would follow-up with his primary care which is encouraged. Also discussed signs symptoms of worsening needing immediate return to ER which he seems understanding. Patient walked out of the ER without any assistance. 11/17/23 14:56 Counseled pt/family regarding: lab results, diagnosis, need for follow-up, rad results Medical Desision Making - Independent Historian Additional History obtained from: Spouse - Diagnostic Testing Diagnostic test were ordered, analyzed, and reviewed by me: Yes Radiological Interpretation: Interpreted by me, Reviewed by me, Teleradiologist Report - Risk of complications The pt has a mod risk of morbidity or mortality based on: Need for prescription drug management - Departure Departure Disposition: AMA Clinical Impression: Dizziness, Orthostatic hypotension Condition: Stable Critical Care Time: No Referrals: SAMI ALLEN [Primary Care Provider] - Follow up with PCP 1 day Instructions: Dizziness, Nonvertigo, (DC) Additional Instructions: Follow-up with primary care for reevaluation. Return to ER for worsening dizziness, headache, numbness tingling focal weakness etc. Monitor your blood pressure regularly, keep log and follow-up with PCP.
[2023-11-17] MEDS ORDERED: BENADRYL 50 MG/ML ONE (14:11)
[2023-11-17] MEDS ORDERED: Reglan 10 MG/2 ML ONE (14:12)
[2023-11-17] MEDS ORDERED: TYLENOL 325 MG ONE (14:12)
[2023-11-17] MEDS: TYLENOL 325 MG PO STA (14:15)
[2023-11-17] MEDS: BENADRYL 50 MG/ML IV ONE (14:17)
[2023-11-17] MEDS: Reglan 10 MG/2 ML IV ONE (14:20)
[2023-11-17 14:44] VITALS: BP 140/72; RESP 19
[2023-11-17 14:58] VITALS: O2SAT 98
== END 2023-11-17 15:03 | disposition left against medical advice (07) ==
LOC: ED 11:34
DX: R42 Dizziness and giddiness (principal); I95.1 Orthostatic hypotension; R51.9 Headache, unspecified; E11.9 Type 2 diabetes mellitus without complications; Z79.02 Long term (current) use of antithrombotics/antiplatelets; Z79.84 Long term (current) use of oral hypoglycemic drugs; Z79.85 Long-term (current) use of injectable non-insulin antidiabetic drugs; Z79.899 Other long term (current) drug therapy; Z72.0 Tobacco use
CPT/HCPCS: 36000; 36415; 70450; 71045; 80053; 80307; 81001; 82077; 83605; 83735; 83880; 84484; 85025; 87086; 93005; 93041; 96374; 96375; 99284; J1200; A9270-GY

== ENCOUNTER 2023-12-22 13:31 | Observation (INO) | payer MEDICARE ==
[2023-12-22] MEDS ORDERED: Sodium Chloride 0.9% 1000 ML 1,000 ML ONE (14:11)
[2023-12-22] MEDS: Sodium Chloride 0.9% 1000 ML 1,000 ML IV STA (14:11)
[2023-12-22 14:26] LABS: Absolute Neutrophil Ct (ANC) 3.71 x10^3/uL (1.78-5.38); BASOPHIL % 0.9 % (0.2-1.2); Basophil (Absolute #) 0.05 x10^3/uL (0.01-0.08); Eosinophil % 3.2 % (0.8-7.0); Eosinophil (Absolute #) 0.19 x10^3/uL (0.04-0.54); Hematocrit 40.1 % (40.1-51.0); Hemoglobin 13.1 g/dL (13.7-17.5); IMMATURE GRAN # 0.02 x10^3u/L (0.001-0.031); IMMATURE GRAN % 0.3 % (0.001-0.429); Lymphocyte (Absolute #) 1.46 x10^3/uL (1.32-3.57); Lymphocytes % 24.9 % (21.8-53.1); Mean Cell Volume 97.8 fL (79.0-92.2); Mean Corpuscular Hgb Concent. 32.7 g/dL (32.3-36.5); Mean Platelet Volume 9.6 fL (9.4-12.4); Monocyte (Absolute #) 0.43 x10^3/uL (0.30-0.82); Monocytes % 7.3 % (5.3-12.2); Neutrophil % 63.4 % (34.0-67.9); Platelet Count 223 x10^3/uL (163-337); Red Cell Distribution Width 12.8 % (11.6-14.4); White Blood Count 5.9 x10^3/uL (4.23-9.07)
--- NOTE | 2023-12-22 15:06 | XRAY ---
Indication: Hypotension. Comparison: November 17, 2023 Portable chest unchanged again demonstrating normal heart and lungs with incidental left base calcified granuloma. Bony thorax intact again with mild degenerative changes and cervical fusion hardware. No new/acute findings.
[2023-12-22 15:12] LABS: ALBUMIN 3.7 g/dL (3.5-5.0); ANION GAP 12.3 MEQ/L (5-15); BILIRUBIN,TOTAL 0.4 mg/dL (0.2-1.3); Calcium 9.3 mg/dL (8.4-10.2); Creatinine 1 1.3 mg/dL (0.66-1.25); EST GLOMERULAR FILTRATION RATE 63.7 ML/MIN; MAGNESIUM 1.2 mg/dL (1.6-2.3); Potassium 5.8 mmol/L (3.5-5.1); TSH, 3RD Generation 1.95 mIU/L (0.470-4.680)
--- NOTE | 2023-12-22 15:39 | ERPHSYRPT ---
- History of Present Illness Source: patient, family Exam Limitations: no limitations Patient Subjective Stated Complaint: pt here for low b/p off and on, he seen caridiologist on tuesday and states think think he has a neuro problem and is being referred to neurologist Triage Nursing Assessment: pt alert, walked in, skin w/d/p. resp easy, moves all ext well ,no cough Hx Tetanus, Diphtheria Vaccination/Date Given: Yes Hx Influenza Vaccination/Date Given: No Hx Pneumococcal Vaccination/Date Given: No Immunizations Up to Date: Yes - History of Present Illness Time Seen by Provider: 12/22/23 13:38 Physician History: 58 years old male with history of hypertension, hyperlipidemia, diabetes mellitus, tobacco abuse, COPD presented in the ER with complains of hypotension. Patient reports his blood pressure earlier was 81 systolic. He was feeling dizzy lightheaded and this happens off and on for quite some time specially when he is standing. Denies any chest pain palpitations or shortness of breath but weak fatigued and tired all over. Reports having nausea and 1 episode of vomiting. No abdominal pain, no fever or chills reported. Denies any headache, numbness tingling or focal weakness. Patient reports his vision gets blurry with hypotension as well. (BENITEZ CORTES) Allergies/Adverse Reactions: iodine Allergy (Severe, Verified 12/22/23 13:39) Blisters states "skin comes off" povidone-iodine [From Betadine] Allergy (Severe, Verified 12/22/23 13:39) Blisters soap [From Betadine] Allergy (Severe, Verified 12/22/23 13:39) Blisters Sulfa (Sulfonamide Antibiotics) Allergy (Unknown, Verified 12/22/23 13:39) sulfamethoxazole [From Bactrim] Allergy (Unknown, Verified 12/22/23 13:39) trimethoprim [From Bactrim] Allergy (Unknown, Verified 12/22/23 13:39) IV DYE Allergy (Severe, Uncoded 12/22/23 13:39) Blisters Home Medications: Testosterone Cypionate 200 mg IM UD 10/13/17 [History] Clopidogrel Bisulfate [Clopidogrel] 75 mg PO 0600 12/02/19 [History] Metformin HCl 1,000 mg PO 0600,1800 12/02/19 [History] Omeprazole 20 mg PO 0600 12/09/19 [History] Diclofenac Sodium 50 mg [Voltaren 50 mg] 1 tab PO BID 01/27/22 [History] Gabapentin [Gabapentin ER] 600 mg PO DAILY 10/19/23 [History] Lisinopril 10 mg [Zestril 10 MG] 10 mg PO DAILY 10/19/23 [History] Misoprostol [Cytotec] 200 mcg PO BID 10/19/23 [History] Semaglutide [Ozempic] 0.25 mg SQ WEEKLY 10/19/23 [History] Travel Risk - International Travel Have you traveled outside of the country in past 3 weeks: No - Emerging Infectious Disease Are you exhibiting symptoms associated with any current EIDs: No - Review of Systems Constitutional: Fatigue, Weakness Eyes: No Symptoms Ears, Nose, & Throat: No Symptoms Respiratory: Cough Cardiac: No Symptoms Abdominal/Gastrointestinal: Nausea, Vomiting Genitourinary Symptoms: No Symptoms Musculoskeletal: Arthralgias Skin: No Symptoms Neurological: Dizziness Psychological: No Symptoms Endocrine: No Symptoms Hematologic/Lymphatic: No Symptoms Immunological/Allergic: No Symptoms All Other Systems: Reviewed and Negative - Past Medical History Pertinent Past Medical History: Yes Neurological History: No Pertinent History ENT History: No Pertinent History Cardiac History: Peripheral Vascular Disease Respiratory History: Sleep Apnea Endocrine Medical History: Diabetes Type II Musculoskeletal History: No Pertinent History GI Medical History: No Pertinent History History: No Pertinent History Psycho-Social History: No Pertinent History Male Reproductive Disorders: No Pertinent History Other Medical History: PT IS NIDDM, scrotal sac removed for a history of a spider bite that resulted in gangrene as stated per pt.abscess to right axilla - Past Surgical History Past Surgical History: Yes Neuro Surgical History: No Pertinent History Cardiac: Vascular Surgery Respiratory: No Pertinent History Gastrointestinal: No Pertinent History Genitourinary: No Pertinent History Musculoskeletal: Joint Replacement, Orthopedic Surgery Male Surgical History: No Pertinent History Other Surgical History: SCROTOM REMOVED AND REBUILT, RT KNEE REPLACEMENT, angioplasty to left leg ,neck surgery - Social History Smoking Status: Former smoker How long have you smoked: 40 yrs Exposure to second hand smoke: Yes Drug Use: none Patient Lives Alone: No - Social Determinants of Health Will the patient participate in the screening: Declined to provide - Physical Exam General Appearance: no apparent distress, alert Eye Exam: PERRL/EOMI Ears, Nose, Throat Exam: normal ENT inspection, TMs normal, pharynx normal, moist mucous membranes Neck Exam: normal inspection, non-tender, supple, full range of motion Respiratory Exam: normal breath sounds, lungs clear Cardiovascular Exam: regular rate/rhythm, normal heart sounds Gastrointestinal/Abdomen Exam: soft, normal bowel sounds, No tenderness Back Exam: normal inspection, normal range of motion Extremity Exam: normal inspection, normal range of motion, pelvis stable Neurologic Exam: alert, oriented x 3, cooperative, vacation planner II-XII nml as tested, normal mood/affect, nml cerebellar function, nml station & gait, sensation nml, No motor deficits Skin Exam: normal color SpO2 Interpretation: normal SpO2: 98 O2 Delivery: Room Air - Nursing Vital Signs Nursing Vital Signs: Initial Vital Signs Temperature 97.4 F 12/22/23 13:53 Pulse Rate 91 H 12/22/23 13:53 Respiratory Rate 16 12/22/23 13:53 Blood Pressure 98/61 12/22/23 13:53 O2 Sat by Pulse Oximetry 96 12/22/23 13:53 Pain Scale Pain Intensity 4 Ordered Tests: Active Orders 24 hr Category Date Time Status Bedrest ROUTINE Activity 12/22/23 16:47 Active Up With Assistance ROUTINE Activity 12/22/23 16:47 Active Call Admit Doctor for Orders ON ADMISSION Care 12/22/23 16:47 Active Public Health Doctor ROUTINE Care 12/22/23 16:47 Completed Code Status Order ROUTINE Care 12/22/23 16:47 Active EKG-ER Only STAT Care 12/22/23 14:01 Completed Fall Protocol Q1H Care 12/22/23 16:47 Active IV Insertion STAT Care 12/22/23 14:01 Completed NPO (ED) STAT Care 12/22/23 14:01 Completed Neuro Checks Q4H Care 12/22/23 16:47 Active POCT Glucose Check ACHS Care 12/22/23 16:[address] in Observation ROUTINE Care 12/22/23 16:47 Active Telemetry q4h Care 12/22/23 16:47 Active Consistent Carbohydrate Diet 1800 Calorie Diet 12/23/23 Breakfast Active CHEST 1 VIEW (PORTABLE) Stat Exams 12/22/23 14:01 Completed BLOOD CULTURE Stat Lab 12/22/23 14:22 Received CBC W DIFF Stat Lab 12/22/23 14:00 Completed CMP Stat Lab 12/22/23 14:00 Completed CULTURE,URINE Stat Lab 12/22/23 17:00 Received LIPASE Stat Lab 12/22/23 14:00 Completed Lactic Acid Stat Lab 12/22/23 14:35 Completed MAGNESIUM Stat Lab 12/22/23 14:00 Completed NT PRO BNPII Stat Lab 12/22/23 14:00 Completed TROPONIN Q4H Lab 12/22/23 14:00 Completed TROPONIN Q4H Lab 12/22/23 18:15 Ordered TROPONIN Q4H Lab 12/22/23 22:15 Ordered TSH, 3RD Generation Stat Lab 12/22/23 14:00 Completed UA W/RFX UR CULTURE Stat Lab 12/22/23 17:00 Completed Pulse Oximetry CONTINUOUS RT 12/22/23 16:47 Completed Respiratory Therapy Consult ONCE RT 12/22/23 16:47 Completed Transfer Order Routine Transfer 12/22/23 Completed Medication Summary Discontinued Medications Generic Name Dose Route Start Last Admin Trade Name Freq PRN Reason Stop Dose Admin Calcium Gluconate 1,000 mg 12/22/23 15:24 12/22/23 15:53 Calcium Gluconate 1000 Mg/10 Ml Vial IV 12/22/23 15:25 1,000 mg STAT ONE Administration Calcium Gluconate Confirm 12/22/23 15:49 Calcium Gluconate 1000 Mg/10 Ml Vial Administered 12/22/23 15:50 Dose 1,000 mg IV .STK-MED ONE Dextrose 50 ml 12/22/23 15:24 12/22/23 15:54 Dextrose 50%-Water 50 Ml Abboject IV 12/22/23 15:25 50 ml STAT ONE Administration Dextrose Confirm 12/22/23 15:52 Dextrose 50%-Water 50 Ml Abboject Administered 12/22/23 15:53 Dose 50 ml IV .STK-MED ONE Sodium Chloride 1,000 mls @ 999 mls/hr 12/22/23 14:01 12/22/23 16:16 Sodium Chloride 0.9% 1000 Ml IV 12/22/23 15:01 Infused .Q1H1M STA Infusion Sodium Chloride Confirm 12/22/23 14:11 Sodium Chloride 0.9% 1000 Ml Administered 12/22/23 14:12 Dose 1,000 mls @ ud .ROUTE .STK-MED ONE Magnesium Sulfate/Dextrose 100 mls @ 100 mls/hr 12/22/23 15:30 12/22/23 15:56 Magnesium 1 Gm / 100 Ml D5w IV 12/22/23 17:29 100 mls/hr Q1H JENSEN Administration Sodium Chloride 1,000 mls @ 125 mls/hr 12/22/23 16:00 12/22/23 16:04 Sodium Chloride 0.9% 1000 Ml IV 01/21/24 15:59 125 mls/hr .Q8H JENSEN Administration Insulin Human Regular 10 unit 12/22/23 15:24 12/22/23 15:54 Insulin Regular, Human 1 Unit IV 12/22/23 15:25 10 unit STAT ONE Administration Insulin Human Regular Confirm 12/22/23 15:51 Insulin Regular, Human 1 Unit Administered 12/22/23 15:52 Dose 10 unit .ROUTE .STK-MED ONE Patiromer 8.4 gm 12/22/23 15:25 12/22/23 15:56 Patiromer Calcium Sorbitex 8.4 Gm Powd.Pack PO 12/22/23 15:26 8.4 gm STAT STA Administration Patiromer Confirm 12/22/23 15:52 Patiromer Calcium Sorbitex 8.4 Gm Powd.Pack Administered 12/22/23 15:53 Dose 8.4 gm PO .STK-MED ONE Sodium Bicarbonate 50 meq 12/22/23 15:24 12/22/23 15:58 Sodium Bicarbonate 1 Meq/Ml 50ml Syringe IV 12/22/23 15:25 50 meq STAT ONE Administration Sodium Bicarbonate Confirm 12/22/23 15:51 Sodium Bicarbonate 1 Meq/Ml 50ml Vial Administered 12/22/23 15:52 Dose 50 meq .ROUTE .STK-MED ONE Sodium Bicarbonate Confirm 12/22/23 15:57 Sodium Bicarbonate 1 Meq/Ml 50ml Syringe Administered 12/22/23 15:58 Dose 50 meq IV .STK-MED ONE Lab/Rad Data: Laboratory Result Diagrams 12/22/23 14:00 12/22/23 14:00 Laboratory Results 12/22/23 12/22/23 12/22/23 Range/Units 14:35 14:00 14:00 WBC (4.23-9.07) x10^3/uL RBC (4.63-6.08) x10^6/uL Hgb (13.7-17.5) g/dL Hct (40.1-51.0) % MCV (79.0-92.2) fL MCH (25.7-32.2) pg MCHC (32.3-36.5) g/dL RDW (11.6-14.4) % Plt Count (163-337) x10^3/uL MPV (9.4-12.4) fL Gran % (34.0-67.9) % Immature Gran % (Auto) (0.001-0.429) % Nucleat RBC Rel Count (0.00-0.2) % Eos # (Auto) (0.04-0.54) x10^3/uL Immature Gran # (Auto) (0.001-0.031) x10^3u/L Absolute Lymphs (auto) (1.32-3.57) x10^3/uL Absolute Monos (auto) (0.30-0.82) x10^3/uL Absolute Nucleated RBC (0.00-0.012) x10^3u/L Lymphocytes % (21.8-53.1) % Monocytes % (5.3-12.2) % Eosinophils % (0.8-7.0) % Basophils % (0.2-1.2) % Absolute Granulocytes (1.78-5.38) x10^3/uL Basophils # (0.01-0.08) x10^3/uL Sodium 134 L (135-145) mmol/L Potassium 5.8 H (3.5-5.1) mmol/L Chloride 103 (98-107) mmol/L Carbon Dioxide 25 (22-30) mmol/L Anion Gap 12.3 (5-15) MEQ/L BUN 23 H (9-20) mg/dL Creatinine 1.30 H (0.66-1.25) mg/dL Estimated GFR 63.7 ML/MIN Glucose 123 H (74-106) mg/dL Lactic Acid 1.3 (0.4-2.0) Calcium 9.3 (8.4-10.2) mg/dL Magnesium 1.2 L (1.6-2.3) mg/dL Total Bilirubin 0.40 (0.2-1.3) mg/dL AST 23 (17-59) U/L ALT 19 (0-50) U/L Alkaline Phosphatase 66 (38-126) U/L Troponin I < 0.012 (0.000-0.033) ng/mL NT-Pro-B Natriuret Pep 929 (<300) pg/mL Serum Total Protein 6.0 L (6.3-8.2) g/dL Albumin 3.7 (3.5-5.0) g/dL Lipase 100 (23-300) U/L TSH 3rd Generation 1.950 (0.470-4.680) mIU/L 12/22/23 Range/Units 14:00 WBC 5.9 (4.23-9.07) x10^3/uL RBC 4.10 L (4.63-6.08) x10^6/uL Hgb 13.1 L (13.7-17.5) g/dL Hct 40.1 (40.1-51.0) % MCV 97.8 H (79.0-92.2) fL MCH 32.0 (25.7-32.2) pg MCHC 32.7 (32.3-36.5) g/dL RDW 12.8 (11.6-14.4) % Plt Count 223 (163-337) x10^3/uL MPV 9.6 (9.4-12.4) fL Gran % 63.4 (34.0-67.9) % Immature Gran % (Auto) 0.3 (0.001-0.429) % Nucleat RBC Rel Count 0.0 (0.00-0.2) % Eos # (Auto) 0.19 (0.04-0.54) x10^3/uL Immature Gran # (Auto) 0.02 (0.001-0.031) x10^3u/L Absolute Lymphs (auto) 1.46 (1.32-3.57) x10^3/uL Absolute Monos (auto) 0.43 (0.30-0.82) x10^3/uL Absolute Nucleated RBC 0.00 (0.00-0.012) x10^3u/L Lymphocytes % 24.9 (21.8-53.1) % Monocytes % 7.3 (5.3-12.2) % Eosinophils % 3.2 (0.8-7.0) % Basophils % 0.9 (0.2-1.2) % Absolute Granulocytes 3.71 (1.78-5.38) x10^3/uL Basophils # 0.05 (0.01-0.08) x10^3/uL Sodium (135-145) mmol/L Potassium (3.5-5.1) mmol/L Chloride (98-107) mmol/L Carbon Dioxide (22-30) mmol/L Anion Gap (5-15) MEQ/L BUN (9-20) mg/dL Creatinine (0.66-1.25) mg/dL Estimated GFR ML/MIN Glucose (74-106) mg/dL Lactic Acid (0.4-2.0) Calcium (8.4-10.2) mg/dL Magnesium (1.6-2.3) mg/dL Total Bilirubin (0.2-1.3) mg/dL AST (17-59) U/L ALT (0-50) U/L Alkaline Phosphatase (38-126) U/L Troponin I (0.000-0.033) ng/mL NT-Pro-B Natriuret Pep (<300) pg/mL Serum Total Protein (6.3-8.2) g/dL Albumin (3.5-5.0) g/dL Lipase (23-300) U/L TSH 3rd Generation (0.470-4.680) mIU/L - Progress Progress: re-examined Discussed with : Other (Dr. Wesley hospitalist) Will see patient in: hospital (observation) Counseled pt/family regarding: lab results, diagnosis, rad results - Progress Progress Note: 12/22/23 16:05 58 years old with history of hypertension, hyperlipidemia, GERD, diabetes mellitus, tobacco abuse is evaluated for dizziness/lightheadedness with standing along with generalized weakness fatigue tiredness. Patient did have an episode of vomiting. No significant abdominal tenderness. Patient is not tachypneic or tachycardic, lungs bilateral clear to auscultation. EKG is sinus rhythm with no ST elevations. No acute tall T waves. Workup showed normal white count, chemistries with a creatinine of 1.3/BUN 23, magnesium 1.2, potassium 5.8 and negative troponins. Normal lipase. Patient is given a fluid bolus and after that he is still hypotensive with standing where his blood pressure drops from 130s systolic to 79 with symptomatic. Patient is taking only lisinopril for hypertension. May need further evaluation to figure out the cause of his orthostatic hypotension. Chest x-ray is negative for any acute cardiopulmonary findings reviewed by me followed by official read. Patient is given IV replacement of magnesium and also treatment per protocol for hyperkalemia with dextrose/bicarb/calcium gluconate/insulin and Veltassa. I believe patient would benefit with admission, discussed with Dr. Wesley, reviewed history, workup and agreed with admission. I have discussed the results of workup with patient who initially did not want to be admitted, after prolonged discussion he is agreeable with staying. (BENITEZ CORTES) Medical Desision Making - Independent Historian Additional History obtained from: Spouse - Discussion of managment Care discussed with:: hospitalist (Dr. Wesley) Reviewed:: Test results Agreed on:: Treatment plan, place in obs Will see patient: in hospital - Diagnostic Testing Diagnostic test were ordered, analyzed, and reviewed by me: Yes Radiological Interpretation: Reviewed by me - Risk of complications The pt has a mod risk of morbidity or mortality based on: Need for prescription drug management The pt has a high risk of morbidity or mortality based on: Decision regarding hospitilization or escalation of hosp level of care - Departure Departure Disposition: Observation Critical Care Time: No - Departure Clinical Impression: Orthostatic hypotension, Hypomagnesemia, Hyperkalemia Condition: Stable
[2023-12-22] MEDS ORDERED: Calcium Gluconate 10% 1000 MG IV ONE (15:49)
[2023-12-22] MEDS ORDERED: HUMULIN R ONE (15:51)
[2023-12-22] MEDS ORDERED: Sodium Bicarbonate 50 MEQ/50 ML VIAL ONE (15:51)
[2023-12-22] MEDS ORDERED: VELTASSA PO ONE (15:52)
[2023-12-22] MEDS ORDERED: D50W 50 ml Abboject IV ONE (15:52)
[2023-12-22] MEDS: Calcium Gluconate 10% 1000 MG IV ONE (15:53)
[2023-12-22] MEDS: D50W 50 ml Abboject IV ONE (15:54)
[2023-12-22] MEDS: HUMULIN R IV ONE (15:54)
[2023-12-22] MEDS: Magnesium 1 Gm / 100 Ml D5W*** 100 ML IV SCH (15:56)
[2023-12-22] MEDS: VELTASSA PO STA (15:56)
[2023-12-22] MEDS ORDERED: SODIUM BICARBONATE 50 MEQ/50 ML ABBOJECT IV ONE (15:57)
[2023-12-22] MEDS: SODIUM BICARBONATE 50 MEQ/50 ML ABBOJECT IV ONE (15:58)
[2023-12-22] MEDS: Sodium Chloride 0.9% 1000 ML 1,000 ML IV SCH (16:04)
--- NOTE | 2023-12-22 16:57 | PCM.HP ---
<ANTONIO FERRERA - Last Filed: 12/22/23 17:59> History of Present Illness - Chief Complaint Chief Complaint: low blood pressure Date: 12/22/23 History of Present Illness: is a 58 year old male with a pmhx of SAHRA, CHF, DVT (left leg 6-7 years ago), and DM who presented to ED 12/22/23 with complaints of low blood pressure. Patient states onset of symptoms about 3-4 months ago. He has had OP workup with both cardiology and nephrology. He is currently taking midodrine 10mg TID. Patient states he takes his blood pressure four times a day and today was having readings in the 60's/30's. He reports frequent near-syncopal episodes but has never had loc or falls. He does have dizziness and this week nausea/vomiting. Denies fever,cough, sob, cp, abdominal pain, or diarrhea. Upon arrival to the ED, patient was hypotensive with positive orthostatic vitals. EKG is sinus rhythm with no ST elevations.CXR with no acute cardiopulmonary findings. Labs remarkable for macrocytic anemia with hgb stable at 13.1, hypekalemia at 5.8, hyponatremia at 134, hypomagnesemia at 1.2, and MATT with BUN at 23, and creat at 1.30. Patient was given fluid bolus but symptomatic orthostatic hypotension remains. Patient also given IV replacement of magnesium and also treatment per protocol for hyperkalemia with dextrose/bicarb/calcium gluconate/insulin and Veltassa. Admit for orthostatic hypotension, hyperkalemia, hypomagnesemia, and MATT. - Review of Systems Constitutional: No Symptoms Eyes: No Symptoms Ears, Nose, & Throat: No Symptoms Respiratory: No Symptoms Cardiac: No Symptoms Abdominal/Gastrointestinal: Nausea, Vomiting, Constipation Genitourinary Symptoms: Frequency, Other (small amounts) Musculoskeletal: No Symptoms Skin: No Symptoms Neurological: Dizziness, Headache Psychological: No Symptoms Endocrine: No Symptoms Hematologic/Lymphatic: No Symptoms Immunological/Allergic: No Symptoms Medications & Allergies Home Medications: Home Medication List Testosterone Cypionate 200 mg IM UD 10/13/17 [History Confirmed 12/22/23] Clopidogrel Bisulfate [Clopidogrel] 75 mg PO DAILY 12/02/19 [History Confirmed 12/22/23] Metformin HCl 1,000 mg PO BID 12/02/19 [History Confirmed 12/22/23] Omeprazole 20 mg PO 0600 12/09/19 [History Confirmed 12/22/23] Diclofenac Sodium 50 mg [Voltaren 50 mg] 1 tab PO BID 01/27/22 [History Confirmed 12/22/23] Gabapentin [Gabapentin ER] 1,800 mg PO HS 10/19/23 [History Confirmed 12/22/23] Misoprostol [Cytotec] 200 mcg PO BID 10/19/23 [History Confirmed 12/22/23] Semaglutide [Ozempic] 0.5 mg SQ WEEKLY 10/19/23 [History Confirmed 12/22/23] Diclofenac Sodium [Diclofenac Sodium ER] 75 mg PO BID 12/22/23 [History Confirmed 12/22/23] Midodrine HCl [Proamatine] 10 mg PO BID 12/22/23 [History Confirmed 12/22/23] Pioglitazone HCl 15 mg PO BID 12/22/23 [History Confirmed 12/22/23] Tamsulosin HCl 0.4 mg [Flomax 0.4 MG] 0.4 mg PO DAILY 12/22/23 [History Confirmed 12/22/23] Tapentadol HCl [Nucynta] 200 mg PO HS 12/22/23 [History Confirmed 12/22/23] Tapentadol HCl [Nucynta] 300 mg PO DAILY 12/22/23 [History Confirmed 12/22/23] Allergies/Adverse Reactions: Allergies Allergy/AdvReac Type Severity Reaction Status Date / Time iodine Allergy Severe Blisters Verified 12/22/23 13:39 povidone-iodine Allergy Severe Blisters Verified 12/22/23 13:39 [From Betadine] soap [From Betadine] Allergy Severe Blisters Verified 12/22/23 13:39 Sulfa (Sulfonamide Allergy Unknown Verified 12/22/23 13:39 Antibiotics) sulfamethoxazole Allergy Unknown Verified 12/22/23 13:39 [From Bactrim] trimethoprim [From Bactrim] Allergy Unknown Verified 12/22/23 13:39 IV DYE Allergy Severe Blisters Uncoded 12/22/23 13:39 - Past Medical History Past Medical History: Yes Neurological History: No Pertinent History ENT History: No Pertinent History Cardiac History: Peripheral Vascular Disease Respiratory History: Sleep Apnea Endocrine Medical History: Diabetes Type II Musculoskelatal History: No Pertinent History GI Medical History: No Pertinent History History: No Pertinent History Pyscho-Social History: No Pertinent History Male Reproductive Disorders: No Pertinent History Comment: PT IS NIDDM, scrotal sac removed for a history of a spider bite that resulted in gangrene as stated per pt.abscess to right axilla - Past Surgical History Past Surgical History: Yes Neuro Surgical History: No Pertinent History Cardiac History: Vascular Surgery Respiratory Surgery: No Pertinent History GI Surgical History: No Pertinent History Genitourinary Surgical Hx: No Pertinent History Musculskeletal Surgical Hx: Joint Replacement, Orthopedic Surgery Male Surgical History: No Pertinent History Other Surgical History: SCROTOM REMOVED AND REBUILT, RT KNEE REPLACEMENT, angioplasty to left leg ,neck surgery - Social History Smoking Status: Former smoker How long have you smoked: 40 yrs Exposure to second hand smoke: Yes Alcohol: Rarely Drug Use: none - Social Determinants of Health Will the patient participate in the screening: Declined to provide - Physical Exam Vital Signs: Vital Signs - 24 hr Temp Pulse Resp BP BP Pulse Ox 12/22/23 16:07 98 12/22/23 16:01 133/75 100 12/22/23 15:31 142/68 98 12/22/23 15:23 79/31 12/22/23 15:22 92 H 20 118/69 97 12/22/23 15:21 92 H 14 133/77 98 12/22/23 15:18 89 14 127/65 99 12/22/23 15:00 88 6 L 107/75 98 12/22/23 14:30 85 10 L 113/64 99 12/22/23 14:00 87 15 95/65 98 12/22/23 13:53 97.4 F 91 H 16 98/61 96 General Appearance: no apparent distress Neurologic Exam: alert, oriented x 3, cooperative, normal mood/affect Eye Exam: PERRL/EOMI Ears, Nose, Throat Exam: moist mucous membranes Neck Exam: normal inspection Respiratory Exam: normal breath sounds, lungs clear Cardiovascular Exam: regular rate/rhythm, normal heart sounds Rectal Exam: deferred Back Exam: normal inspection Skin Exam: normal color Results - Labs Lab/Micro Results: Lab Results-Last 24 Hours 12/22/23 12/22/23 12/22/23 Range/Units 14:00 14:00 14:00 WBC 5.9 (4.23-9.07) x10^3/uL RBC 4.10 L (4.63-6.08) x10^6/uL Hgb 13.1 L (13.7-17.5) g/dL Hct 40.1 (40.1-51.0) % MCV 97.8 H (79.0-92.2) fL MCH 32.0 (25.7-32.2) pg MCHC 32.7 (32.3-36.5) g/dL RDW 12.8 (11.6-14.4) % Plt Count 223 (163-337) x10^3/uL MPV 9.6 (9.4-12.4) fL Gran % 63.4 (34.0-67.9) % Immature Gran % (Auto) 0.3 (0.001-0.429) % Nucleat RBC Rel Count 0.0 (0.00-0.2) % Eos # (Auto) 0.19 (0.04-0.54) x10^3/uL Immature Gran # (Auto) 0.02 (0.001-0.031) x10^3u/L Absolute Lymphs (auto) 1.46 (1.32-3.57) x10^3/uL Absolute Monos (auto) 0.43 (0.30-0.82) x10^3/uL Absolute Nucleated RBC 0.00 (0.00-0.012) x10^3u/L Lymphocytes % 24.9 (21.8-53.1) % Monocytes % 7.3 (5.3-12.2) % Eosinophils % 3.2 (0.8-7.0) % Basophils % 0.9 (0.2-1.2) % Absolute Granulocytes 3.71 (1.78-5.38) x10^3/uL Basophils # 0.05 (0.01-0.08) x10^3/uL Sodium 134 L (135-145) mmol/L Potassium 5.8 H (3.5-5.1) mmol/L Chloride 103 (98-107) mmol/L Carbon Dioxide 25 (22-30) mmol/L Anion Gap 12.3 (5-15) MEQ/L BUN 23 H (9-20) mg/dL Creatinine 1.30 H (0.66-1.25) mg/dL Estimated GFR 63.7 ML/MIN Glucose 123 H (74-106) mg/dL Lactic Acid (0.4-2.0) Calcium 9.3 (8.4-10.2) mg/dL Magnesium 1.2 L (1.6-2.3) mg/dL Total Bilirubin 0.40 (0.2-1.3) mg/dL AST 23 (17-59) U/L ALT 19 (0-50) U/L Alkaline Phosphatase 66 (38-126) U/L Troponin I < 0.012 (0.000-0.033) ng/mL NT-Pro-B Natriuret Pep 929 (<300) pg/mL Serum Total Protein 6.0 L (6.3-8.2) g/dL Albumin 3.7 (3.5-5.0) g/dL Lipase 100 (23-300) U/L TSH 3rd Generation 1.950 (0.470-4.680) mIU/L 12/22/23 Range/Units 14:35 WBC (4.23-9.07) x10^3/uL RBC (4.63-6.08) x10^6/uL Hgb (13.7-17.5) g/dL Hct (40.1-51.0) % MCV (79.0-92.2) fL MCH (25.7-32.2) pg MCHC (32.3-36.5) g/dL RDW (11.6-14.4) % Plt Count (163-337) x10^3/uL MPV (9.4-12.4) fL Gran % (34.0-67.9) % Immature Gran % (Auto) (0.001-0.429) % Nucleat RBC Rel Count (0.00-0.2) % Eos # (Auto) (0.04-0.54) x10^3/uL Immature Gran # (Auto) (0.001-0.031) x10^3u/L Absolute Lymphs (auto) (1.32-3.57) x10^3/uL Absolute Monos (auto) (0.30-0.82) x10^3/uL Absolute Nucleated RBC (0.00-0.012) x10^3u/L Lymphocytes % (21.8-53.1) % Monocytes % (5.3-12.2) % Eosinophils % (0.8-7.0) % Basophils % (0.2-1.2) % Absolute Granulocytes (1.78-5.38) x10^3/uL Basophils # (0.01-0.08) x10^3/uL Sodium (135-145) mmol/L Potassium (3.5-5.1) mmol/L Chloride (98-107) mmol/L Carbon Dioxide (22-30) mmol/L Anion Gap (5-15) MEQ/L BUN (9-20) mg/dL Creatinine (0.66-1.25) mg/dL Estimated GFR ML/MIN Glucose (74-106) mg/dL Lactic Acid 1.3 (0.4-2.0) Calcium (8.4-10.2) mg/dL Magnesium (1.6-2.3) mg/dL Total Bilirubin (0.2-1.3) mg/dL AST (17-59) U/L ALT (0-50) U/L Alkaline Phosphatase (38-126) U/L Troponin I (0.000-0.033) ng/mL NT-Pro-B Natriuret Pep (<300) pg/mL Serum Total Protein (6.3-8.2) g/dL Albumin (3.5-5.0) g/dL Lipase (23-300) U/L TSH 3rd Generation (0.470-4.680) mIU/L - Radiology Impressions Radiology Exams & Impressions: Radiology Procedures Category Date Time Status CHEST 1 VIEW (PORTABLE) Stat Exams 12/22/23 14:01 Completed Assessment/Plan (1) Orthostatic hypotension Current Visit: Yes Status: Acute Assessment & Plan: -Patient received 1L fluid bolus in ED - will hold IVF now due to CHF with EF at 35% -Med review for offending agents -tele -Orthostatic vitals in the a.m. -PT/OT consult -Midodrine 10mgTID -Advise lifestyle modifications - liberalize salt and fluid intake, avoid alcohol, rise slowly -compression stalkings Code(s): I95.1 - ORTHOSTATIC HYPOTENSION (2) Hypomagnesemia Current Visit: Yes Status: Acute Assessment & Plan: -Received 1g in ED, will recheck in the a.m. -tele Code(s): E83.42 - HYPOMAGNESEMIA (3) Hyperkalemia Current Visit: Yes Status: Acute Assessment & Plan: -received treatment per protocol for hyperkalemia with dextrose/bicarb/calcium gluconate/insulin and Veltassa in ED, will recheck in 2 hours -tele -Monitor renal/lytes daily Code(s): E87.5 - HYPERKALEMIA (4) MATT (acute kidney injury) Current Visit: Yes Status: Acute Assessment & Plan: -Baseline around 1.1 - chronic NSAID use -Fluid bolus given in ED- will monitor for now due to low EF -UA sodium/creat -Avoid MARGY/ARB/NSAIDS/diuretics -Strict I&O -Monitor renal/lytes Code(s): N17.9 - ACUTE KIDNEY FAILURE, UNSPECIFIED (5) HLD (hyperlipidemia) Current Visit: Yes Status: Acute Assessment & Plan: -continue home meds Code(s): E78.5 - HYPERLIPIDEMIA, UNSPECIFIED (6) GERD (gastroesophageal reflux disease) Current Visit: Yes Status: Acute Assessment & Plan: -continue home meds Code(s): K21.9 - GASTRO-ESOPHAGEAL REFLUX DISEASE WITHOUT ESOPHAGITIS (7) HTN (hypertension) Current Visit: Yes Status: Acute Assessment & Plan: -Hold home meds for now Code(s): I10 - ESSENTIAL (PRIMARY) HYPERTENSION (8) Type 2 diabetes mellitus Current Visit: Yes Status: Acute Assessment & Plan: -ADA diet -A1c -SSI (9) CHF (congestive heart failure) Current Visit: Yes Status: Acute Assessment & Plan: -zia Regan cardiology -recent cardiac stress test on 12/05/23 showing . Ejection fraction calculated 35%, Impression: 1. Left ventricle hypertrophy with hypokinetic wall motion and low ejection fraction. 2. Small focus pharmacologic-induced reversible ischemia mid posterior septal wall -No edema on exam/on RA -does not appear to be in exacerbation -CXR with no acute findings Code(s): I50.9 - HEART FAILURE, UNSPECIFIED (10) Smoker Current Visit: Yes Status: Acute Assessment & Plan: -advised cessation -nicotine patch VTE: lovenox PPI: omeprazole Code status: full code Dispo: 1-2 days Code(s): F17.200 - NICOTINE DEPENDENCE, UNSPECIFIED, UNCOMPLICATED Telemedicine Encounter - Telemedicine Encounter Telemedicine Encounter: "The entirety of this encounter was performed via Telemedicine" This visit was performed using real-time audio and video connection between my location and thepatients locationwith the assistance of a surrogateat the patients location. Written or verbal consent was obtained from the patient/guardian to perform this visit [facility]. Any patient questions regarding the telemedicine interaction were answered. <ANDRES LOOMIS - Last Filed: 12/22/23 19:49> History of Present Illness - Chief Complaint History of Present Illness: is a 58 year old male. - Physical Exam Vital Signs: Vital Signs - 24 hr Temp Pulse Resp BP BP Pulse Ox 12/22/23 17:03 98.4 F 106 H 12 142/69 90 L 12/22/23 16:47 96 H 18 99 12/22/23 16:07 98 12/22/23 16:01 133/75 100 12/22/23 15:31 142/68 98 12/22/23 15:23 79/31 12/22/23 15:22 92 H 20 118/69 97 12/22/23 15:21 92 H 14 133/77 98 12/22/23 15:18 89 14 127/65 99 12/22/23 15:00 88 6 L 107/75 98 12/22/23 14:30 85 10 L 113/64 99 12/22/23 14:00 87 15 95/65 98 12/22/23 13:53 97.4 F 91 H 16 98/61 96 Results - Labs Lab/Micro Results: Lab Results-Last 24 Hours 12/22/23 12/22/23 12/22/23 Range/Units 14:00 14:00 14:00 WBC 5.9 (4.23-9.07) x10^3/uL RBC 4.10 L (4.63-6.08) x10^6/uL Hgb 13.1 L (13.7-17.5) g/dL Hct 40.1 (40.1-51.0) % MCV 97.8 H (79.0-92.2) fL MCH 32.0 (25.7-32.2) pg MCHC 32.7 (32.3-36.5) g/dL RDW 12.8 (11.6-14.4) % Plt Count 223 (163-337) x10^3/uL MPV 9.6 (9.4-12.4) fL Gran % 63.4 (34.0-67.9) % Immature Gran % (Auto) 0.3 (0.001-0.429) % Nucleat RBC Rel Count 0.0 (0.00-0.2) % Eos # (Auto) 0.19 (0.04-0.54) x10^3/uL Immature Gran # (Auto) 0.02 (0.001-0.031) x10^3u/L Absolute Lymphs (auto) 1.46 (1.32-3.57) x10^3/uL Absolute Monos (auto) 0.43 (0.30-0.82) x10^3/uL Absolute Nucleated RBC 0.00 (0.00-0.012) x10^3u/L Lymphocytes % 24.9 (21.8-53.1) % Monocytes % 7.3 (5.3-12.2) % Eosinophils % 3.2 (0.8-7.0) % Basophils % 0.9 (0.2-1.2) % Absolute Granulocytes 3.71 (1.78-5.38) x10^3/uL Basophils # 0.05 (0.01-0.08) x10^3/uL Sodium 134 L (135-145) mmol/L Potassium 5.8 H (3.5-5.1) mmol/L Chloride 103 (98-107) mmol/L Carbon Dioxide 25 (22-30) mmol/L Anion Gap 12.3 (5-15) MEQ/L BUN 23 H (9-20) mg/dL Creatinine 1.30 H (0.66-1.25) mg/dL Estimated GFR 63.7 ML/MIN Glucose 123 H (74-106) mg/dL Lactic Acid (0.4-2.0) Calcium 9.3 (8.4-10.2) mg/dL Magnesium 1.2 L (1.6-2.3) mg/dL Total Bilirubin 0.40 (0.2-1.3) mg/dL AST 23 (17-59) U/L ALT 19 (0-50) U/L Alkaline Phosphatase 66 (38-126) U/L Troponin I < 0.012 (0.000-0.033) ng/mL NT-Pro-B Natriuret Pep 929 (<300) pg/mL Serum Total Protein 6.0 L (6.3-8.2) g/dL Albumin 3.7 (3.5-5.0) g/dL Lipase 100 (23-300) U/L TSH 3rd Generation 1.950 (0.470-4.680) mIU/L Urine Color (Yellow) Urine Appearance (Clear) Urine pH (4.6-8.0) Ur Specific [place] (1.005-1.030) Urine Protein (Negative) Urine Glucose (UA) (Negative) mg/dL Urine Ketones (Negative) Urine Blood (Negative) Urine Nitrite (Negative) Urine Bilirubin (Negative) Urine Urobilinogen (0.2) mg/dL Ur Leukocyte Esterase (Negative) U Hyaline Cast (Auto) (0-2) /LPF Urine Microscopic RBC (0-5) /HPF Urine Microscopic WBC (0-5) /HPF Ur Epithelial Cells (None Seen) /HPF Urine Bacteria (None Seen) /HPF Urine Culture Reflexed (NO) Ur Random Creatinine MG/DL Urine Sodium (30-90) mmol/L Urine Opiates Level (NEGATIVE) Ur Methadone (NEGATIVE) Urine Barbiturates (NEGATIVE) Ur Phencyclidine (PCP) (NEGATIVE) Urine Amphetamine (NEGATIVE) U Benzodiazepine Level (NEGATIVE) Urine Cocaine (NEGATIVE) Urine Marijuana (THC) (NEGATIVE) 12/22/23 12/22/23 12/22/23 Range/Units 14:35 17:00 17:56 WBC (4.23-9.07) x10^3/uL RBC (4.63-6.08) x10^6/uL Hgb (13.7-17.5) g/dL Hct (40.1-51.0) % MCV (79.0-92.2) fL MCH (25.7-32.2) pg MCHC (32.3-36.5) g/dL RDW (11.6-14.4) % Plt Count (163-337) x10^3/uL MPV (9.4-12.4) fL Gran % (34.0-67.9) % Immature Gran % (Auto) (0.001-0.429) % Nucleat RBC Rel Count (0.00-0.2) % Eos # (Auto) (0.04-0.54) x10^3/uL Immature Gran # (Auto) (0.001-0.031) x10^3u/L Absolute Lymphs (auto) (1.32-3.57) x10^3/uL Absolute Monos (auto) (0.30-0.82) x10^3/uL Absolute Nucleated RBC (0.00-0.012) x10^3u/L Lymphocytes % (21.8-53.1) % Monocytes % (5.3-12.2) % Eosinophils % (0.8-7.0) % Basophils % (0.2-1.2) % Absolute Granulocytes (1.78-5.38) x10^3/uL Basophils # (0.01-0.08) x10^3/uL Sodium (135-145) mmol/L Potassium (3.5-5.1) mmol/L Chloride (98-107) mmol/L Carbon Dioxide (22-30) mmol/L Anion Gap (5-15) MEQ/L BUN (9-20) mg/dL Creatinine (0.66-1.25) mg/dL Estimated GFR ML/MIN Glucose (74-106) mg/dL Lactic Acid 1.3 (0.4-2.0) Calcium (8.4-10.2) mg/dL Magnesium (1.6-2.3) mg/dL Total Bilirubin (0.2-1.3) mg/dL AST (17-59) U/L ALT (0-50) U/L Alkaline Phosphatase (38-126) U/L Troponin I < 0.012 (0.000-0.033) ng/mL NT-Pro-B Natriuret Pep (<300) pg/mL Serum Total Protein (6.3-8.2) g/dL Albumin (3.5-5.0) g/dL Lipase (23-300) U/L TSH 3rd Generation (0.470-4.680) mIU/L Urine Color Yellow (Yellow) Urine Appearance Clear (Clear) Urine pH 6.0 (4.6-8.0) Ur Specific [place] 1.020 (1.005-1.030) Urine Protein Trace A (Negative) Urine Glucose (UA) 500 A (Negative) mg/dL Urine Ketones Trace A (Negative) Urine Blood Negative (Negative) Urine Nitrite Negative (Negative) Urine Bilirubin Negative (Negative) Urine Urobilinogen 1.0 A (0.2) mg/dL Ur Leukocyte Esterase Trace A (Negative) U Hyaline Cast (Auto) 3-5 A (0-2) /LPF Urine Microscopic RBC 0-2 (0-5) /HPF Urine Microscopic WBC 0-2 (0-5) /HPF Ur Epithelial Cells None Seen (None Seen) /HPF Urine Bacteria None Seen (None Seen) /HPF Urine Culture Reflexed YES (NO) Ur Random Creatinine MG/DL Urine Sodium (30-90) mmol/L Urine Opiates Level (NEGATIVE) Ur Methadone (NEGATIVE) Urine Barbiturates (NEGATIVE) Ur Phencyclidine (PCP) (NEGATIVE) Urine Amphetamine (NEGATIVE) U Benzodiazepine Level (NEGATIVE) Urine Cocaine (NEGATIVE) Urine Marijuana (THC) (NEGATIVE) 12/22/23 12/22/23 12/22/23 Range/Units 17:56 18:00 18:00 WBC (4.23-9.07) x10^3/uL RBC (4.63-6.08) x10^6/uL Hgb (13.7-17.5) g/dL Hct (40.1-51.0) % MCV (79.0-92.2) fL MCH (25.7-32.2) pg MCHC (32.3-36.5) g/dL RDW (11.6-14.4) % Plt Count (163-337) x10^3/uL MPV (9.4-12.4) fL Gran % (34.0-67.9) % Immature Gran % (Auto) (0.001-0.429) % Nucleat RBC Rel Count (0.00-0.2) % Eos # (Auto) (0.04-0.54) x10^3/uL Immature Gran # (Auto) (0.001-0.031) x10^3u/L Absolute Lymphs (auto) (1.32-3.57) x10^3/uL Absolute Monos (auto) (0.30-0.82) x10^3/uL Absolute Nucleated RBC (0.00-0.012) x10^3u/L Lymphocytes % (21.8-53.1) % Monocytes % (5.3-12.2) % Eosinophils % (0.8-7.0) % Basophils % (0.2-1.2) % Absolute Granulocytes (1.78-5.38) x10^3/uL Basophils # (0.01-0.08) x10^3/uL Sodium (135-145) mmol/L Potassium (3.5-5.1) mmol/L Chloride (98-107) mmol/L Carbon Dioxide (22-30) mmol/L Anion Gap (5-15) MEQ/L BUN (9-20) mg/dL Creatinine (0.66-1.25) mg/dL Estimated GFR ML/MIN Glucose (74-106) mg/dL Lactic Acid (0.4-2.0) Calcium (8.4-10.2) mg/dL Magnesium (1.6-2.3) mg/dL Total Bilirubin (0.2-1.3) mg/dL AST (17-59) U/L ALT (0-50) U/L Alkaline Phosphatase (38-126) U/L Troponin I (0.000-0.033) ng/mL NT-Pro-B Natriuret Pep 809 (<300) pg/mL Serum Total Protein (6.3-8.2) g/dL Albumin (3.5-5.0) g/dL Lipase (23-300) U/L TSH 3rd Generation 1.647 (0.470-4.680) mIU/L Urine Color (Yellow) Urine Appearance (Clear) Urine pH (4.6-8.0) Ur Specific [place] (1.005-1.030) Urine Protein (Negative) Urine Glucose (UA) (Negative) mg/dL Urine Ketones (Negative) Urine Blood (Negative) Urine Nitrite (Negative) Urine Bilirubin (Negative) Urine Urobilinogen (0.2) mg/dL Ur Leukocyte Esterase (Negative) U Hyaline Cast (Auto) (0-2) /LPF Urine Microscopic RBC (0-5) /HPF Urine Microscopic WBC (0-5) /HPF Ur Epithelial Cells (None Seen) /HPF Urine Bacteria (None Seen) /HPF Urine Culture Reflexed (NO) Ur Random Creatinine 167.5 MG/DL Urine Sodium 139 H (30-90) mmol/L Urine Opiates Level NEGATIVE (NEGATIVE) Ur Methadone NEGATIVE (NEGATIVE) Urine Barbiturates NEGATIVE (NEGATIVE) Ur Phencyclidine (PCP) NEGATIVE (NEGATIVE) Urine Amphetamine NEGATIVE (NEGATIVE) U Benzodiazepine Level NEGATIVE (NEGATIVE) Urine Cocaine NEGATIVE (NEGATIVE) Urine Marijuana (THC) NEGATIVE (NEGATIVE) - Radiology Impressions Radiology Exams & Impressions: Radiology Procedures Category Date Time Status CHEST 1 VIEW (PORTABLE) Stat Exams 12/22/23 14:01 Completed - Other Procedures and Tests Respiratory Therapy 12/22/23 18:13 EKG REPEAT IN AM Telemedicine Encounter - Telemedicine Encounter Telemedicine Encounter: "The entirety of this encounter was performed via Telemedicine" This visit was performed using real-time audio and video connection between my location and thepatients locationwith the assistance of a surrogateat the patients location. Written or verbal consent was obtained from the patient/guardian to perform this visit using[employer]API technology. Any patient questions regarding the telemedicine interaction were answered. ROSEMARY Encounter - ROSEMARY Encounter Attestation ROSEMARY Encounter Attestation: "ALFONZO Saldivar andhavediscussed pertinent aspects of their care with Antonio Camacho agree with the history, physical exam (any modifications based on my personal exam will be noted below), assessment, and plan as outlined in original note. Please see immediately below for my summary of findings and additional assessment and plan along with any meaningful corrections/explanations to the Subjective/Objective portions of the ROSEMARY note will be noted." My portion of the encounter took place via telemedicine. -Patient presenting with symptomatic orthostatic hypotension. 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 He was hyperkalemic and had MATT on admission, received IVF. Hypovolemia likely making orthostasis worse. Will reassess patient tomorrow after hydration however since his EF is 35%, will be cautious with fluids.
[2023-12-22 17:51] LABS: Appearance Clear (Clear); Bacteria None Seen /HPF (None Seen); Bilirubin Negative (Negative); Blood Negative (Negative); Epithelial Cells None Seen /HPF (None Seen); Glucose, Urine 500 mg/dL (Negative); Ketones Trace (Negative); Leukocyte Esterase Trace (Negative); Nitrite Negative (Negative); Protein,Urine Dip Trace (Negative); RBC 0-2 /HPF (0-5); WBC 0-2 /HPF (0-5)
[2023-12-22 17:53] VITALS: O2SAT 90
[2023-12-22 17:53] LABS: ADD URINE CULTURE? YES (NO)
[2023-12-22] MEDS ORDERED: Zofran 4 MG/2 ML VIAL IV PRN (18:13)
[2023-12-22] MEDS ORDERED: HUMALOG SQ PRN (18:13)
[2023-12-22] MEDS ORDERED: TYLENOL 325 MG PO PRN (18:13)
[2023-12-22] MEDS ORDERED: Magnesium 1 Gm / 100 Ml D5W*** 100 ML IV ONE (18:22)
[2023-12-22] MEDS: NICODERM CQ 14 MG TOP SCH (18:42)
[2023-12-22 19:06] LABS: Amphetamine,Urine NEGATIVE (NEGATIVE); Barbiturate,Urine NEGATIVE (NEGATIVE); Benzodiazepine,Urine NEGATIVE (NEGATIVE); Cocaine,Urine NEGATIVE (NEGATIVE); Methadone,Urine NEGATIVE (NEGATIVE); Opiate,Urine NEGATIVE (NEGATIVE); PCP,Urine NEGATIVE (NEGATIVE); THC,Urine NEGATIVE (NEGATIVE)
[2023-12-22 19:10] LABS: CREATININE,URINE RANDOM 167.5 MG/DL
[2023-12-22 19:22] LABS: TSH, 3RD Generation 1.647 mIU/L (0.470-4.680)
[2023-12-22 20:10] VITALS: BP 102/53; PULSE 79; RESP 18; TEMP 97.7
[2023-12-22 20:28] LABS: ALBUMIN 3.3 g/dL (3.5-5.0); ANION GAP 10.5 MEQ/L (5-15); BILIRUBIN,TOTAL 0.4 mg/dL (0.2-1.3); Creatinine 1 1.2 mg/dL (0.66-1.25); EST GLOMERULAR FILTRATION RATE 70.1 ML/MIN; Potassium 4.8 mmol/L (3.5-5.1); Total Protein 5.6 g/dL (6.3-8.2)
[2023-12-22] MEDS ORDERED: PROAMATINE PO SCH (22:00)
[2023-12-23] MEDS ORDERED: ENOXAPARIN SODIUM SQ SCH (10:00)
--- NOTE | 2023-12-23 17:29 | PCM.DS ---
Discharge Summary Date of Admission: 12/22/23 16:43 Date of Discharge: 12/22/23 Admitting Physician: ANDRES LOOMIS MD Primary Care Provider: SAMI ALLEN Allergies Allergies iodine Allergy (Severe, Verified 12/22/23 13:39) Blisters states "skin comes off" povidone-iodine [From Betadine] Allergy (Severe, Verified 12/22/23 13:39) Blisters soap [From Betadine] Allergy (Severe, Verified 12/22/23 13:39) Blisters Sulfa (Sulfonamide Antibiotics) Allergy (Unknown, Verified 12/22/23 13:39) sulfamethoxazole [From Bactrim] Allergy (Unknown, Verified 12/22/23 13:39) trimethoprim [From Bactrim] Allergy (Unknown, Verified 12/22/23 13:39) IV DYE Allergy (Severe, Uncoded 12/22/23 13:39) Blisters Hospital Summary - Hospital Course Hospital Course: HPI: is a 58 year old male with a pmhx of SAHRA, CHF, DVT (left leg 6-7 years ago), and DM who presented to ED 12/22/23 with complaints of low blood pressure. Patient states onset of symptoms about 3-4 months ago. He has had OP workup with both cardiology and nephrology. He is currently taking midodrine 10mg TID. Patient states he takes his blood pressure four times a day and today was having readings in the 60's/30's. He reports frequent near-syncopal episodes but has never had loc or falls. He does have dizziness and this week nausea/vomiting. Denies fever,cough, sob, cp, abdominal pain, or diarrhea.Upon arrival to the ED, patient was hypotensive with positive orthostatic vitals. EKG is sinus rhythm with no ST elevations.CXR with no acute cardiopulmonary findings. Labs remarkabl e for macrocytic anemia with hgb stable at 13.1, hypekalemia at 5.8, hyponatremia at 134, hypomagnesemia at 1.2, and MATT with BUN at 23, and creat at 1.30. Patient was given fluid bolus but symptomatic orthostatic hypotension remains. Patient also given IV replacement of magnesium and also treatment per protocol for hyperkalemia with dextrose/bicarb/calcium gluconate/insulin and Velt[place]. Admit for orthostatic hypotension, hyperkalemia, hypomagnesemia, and MATT. Patient left AMA after getting upset that he required assistance to the restroom secondary to his admission for dizziness/hypotension/and frequent near syncopal episodes per RN report. RN did educate the patient on the rationale behind the fall risk protocol. Patient requested AMA paperwork. The risk of leaving AMA were explained including the risks of leaving without further workup or treatment, which included reasonably foreseeable complications such as , serious injury, or permanent disability. Patient was unable to be convinced to stay and declined any further care and chose to leave AMA. Patient advised to return as soon as possible to complete their evaluation, and also explained that they were welcome to return to the ER for further evaluation whenever they choose. - Vitals & Intake/Output Vital Signs: Vital Signs Temperature 97.7 F 12/22/23 20:00 Pulse Rate 79 12/22/23 20:00 Respiratory Rate 18 12/22/23 20:00 Blood Pressure 102/53 12/22/23 20:00 O2 Sat by Pulse Oximetry 90 L 12/22/23 20:00 Intake & Output: Intake & Output 12/21/23 12/22/23 12/23/23 12/24/23 11:59 11:59 11:59 11:59 Output Total 950 Balance -950 Weight 110.4 kg - Lab Result Diagrams: 12/22/23 14:00 12/22/23 20:05 Lab Results-Last 24 Hrs: Lab Results-Last 24 Hours 12/22/23 12/22/23 12/22/23 Range/Units 17:00 17:56 17:56 Sodium (135-145) mmol/L Potassium (3.5-5.1) mmol/L Chloride (98-107) mmol/L Carbon Dioxide (22-30) mmol/L Anion Gap (5-15) MEQ/L BUN (9-20) mg/dL Creatinine (0.66-1.25) mg/dL Estimated GFR ML/MIN Glucose (74-106) mg/dL Calcium (8.4-10.2) mg/dL Total Bilirubin (0.2-1.3) mg/dL AST (17-59) U/L ALT (0-50) U/L Alkaline Phosphatase (38-126) U/L Troponin I < 0.012 (0.000-0.033) ng/mL NT-Pro-B Natriuret Pep 809 (<300) pg/mL Serum Total Protein (6.3-8.2) g/dL Albumin (3.5-5.0) g/dL TSH 3rd Generation 1.647 (0.470-4.680) mIU/L Urine Color Yellow (Yellow) Urine Appearance Clear (Clear) Urine pH 6.0 (4.6-8.0) Ur Specific [place] 1.020 (1.005-1.030) Urine Protein Trace A (Negative) Urine Glucose (UA) 500 A (Negative) mg/dL Urine Ketones Trace A (Negative) Urine Blood Negative (Negative) Urine Nitrite Negative (Negative) Urine Bilirubin Negative (Negative) Urine Urobilinogen 1.0 A (0.2) mg/dL Ur Leukocyte Esterase Trace A (Negative) U Hyaline Cast (Auto) 3-5 A (0-2) /LPF Urine Microscopic RBC 0-2 (0-5) /HPF Urine Microscopic WBC 0-2 (0-5) /HPF Ur Epithelial Cells None Seen (None Seen) /HPF Urine Bacteria None Seen (None Seen) /HPF Urine Culture Reflexed YES (NO) Ur Random Creatinine MG/DL Urine Sodium (30-90) mmol/L Urine Opiates Level (NEGATIVE) Ur Methadone (NEGATIVE) Urine Barbiturates (NEGATIVE) Ur Phencyclidine (PCP) (NEGATIVE) Urine Amphetamine (NEGATIVE) U Benzodiazepine Level (NEGATIVE) Urine Cocaine (NEGATIVE) Urine Marijuana (THC) (NEGATIVE) 12/22/23 12/22/23 12/22/23 Range/Units 18:00 18:00 20:05 Sodium (135-145) mmol/L Potassium (3.5-5.1) mmol/L Chloride (98-107) mmol/L Carbon Dioxide (22-30) mmol/L Anion Gap (5-15) MEQ/L BUN (9-20) mg/dL Creatinine (0.66-1.25) mg/dL Estimated GFR ML/MIN Glucose (74-106) mg/dL Calcium (8.4-10.2) mg/dL Total Bilirubin (0.2-1.3) mg/dL AST (17-59) U/L ALT (0-50) U/L Alkaline Phosphatase (38-126) U/L Troponin I < 0.012 (0.000-0.033) ng/mL NT-Pro-B Natriuret Pep (<300) pg/mL Serum Total Protein (6.3-8.2) g/dL Albumin (3.5-5.0) g/dL TSH 3rd Generation (0.470-4.680) mIU/L Urine Color (Yellow) Urine Appearance (Clear) Urine pH (4.6-8.0) Ur Specific [place] (1.005-1.030) Urine Protein (Negative) Urine Glucose (UA) (Negative) mg/dL Urine Ketones (Negative) Urine Blood (Negative) Urine Nitrite (Negative) Urine Bilirubin (Negative) Urine Urobilinogen (0.2) mg/dL Ur Leukocyte Esterase (Negative) U Hyaline Cast (Auto) (0-2) /LPF Urine Microscopic RBC (0-5) /HPF Urine Microscopic WBC (0-5) /HPF Ur Epithelial Cells (None Seen) /HPF Urine Bacteria (None Seen) /HPF Urine Culture Reflexed (NO) Ur Random Creatinine 167.5 MG/DL Urine Sodium 139 H (30-90) mmol/L Urine Opiates Level NEGATIVE (NEGATIVE) Ur Methadone NEGATIVE (NEGATIVE) Urine Barbiturates NEGATIVE (NEGATIVE) Ur Phencyclidine (PCP) NEGATIVE (NEGATIVE) Urine Amphetamine NEGATIVE (NEGATIVE) U Benzodiazepine Level NEGATIVE (NEGATIVE) Urine Cocaine NEGATIVE (NEGATIVE) Urine Marijuana (THC) NEGATIVE (NEGATIVE) 12/22/23 Range/Units 20:05 Sodium 133 L (135-145) mmol/L Potassium 4.8 (3.5-5.1) mmol/L Chloride 102 (98-107) mmol/L Carbon Dioxide 25 (22-30) mmol/L Anion Gap 10.5 (5-15) MEQ/L BUN 22 H (9-20) mg/dL Creatinine 1.20 (0.66-1.25) mg/dL Estimated GFR 70.1 ML/MIN Glucose 218 H (74-106) mg/dL Calcium 9.0 (8.4-10.2) mg/dL Total Bilirubin 0.40 (0.2-1.3) mg/dL AST 22 (17-59) U/L ALT 16 (0-50) U/L Alkaline Phosphatase 62 (38-126) U/L Troponin I (0.000-0.033) ng/mL NT-Pro-B Natriuret Pep (<300) pg/mL Serum Total Protein 5.6 L (6.3-8.2) g/dL Albumin 3.3 L (3.5-5.0) g/dL TSH 3rd Generation (0.470-4.680) mIU/L Urine Color (Yellow) Urine Appearance (Clear) Urine pH (4.6-8.0) Ur Specific [place] (1.005-1.030) Urine Protein (Negative) Urine Glucose (UA) (Negative) mg/dL Urine Ketones (Negative) Urine Blood (Negative) Urine Nitrite (Negative) Urine Bilirubin (Negative) Urine Urobilinogen (0.2) mg/dL Ur Leukocyte Esterase (Negative) U Hyaline Cast (Auto) (0-2) /LPF Urine Microscopic RBC (0-5) /HPF Urine Microscopic WBC (0-5) /HPF Ur Epithelial Cells (None Seen) /HPF Urine Bacteria (None Seen) /HPF Urine Culture Reflexed (NO) Ur Random Creatinine MG/DL Urine Sodium (30-90) mmol/L Urine Opiates Level (NEGATIVE) Ur Methadone (NEGATIVE) Urine Barbiturates (NEGATIVE) Ur Phencyclidine (PCP) (NEGATIVE) Urine Amphetamine (NEGATIVE) U Benzodiazepine Level (NEGATIVE) Urine Cocaine (NEGATIVE) Urine Marijuana (THC) (NEGATIVE) Micro Results-Entire Visit: Microbiology 12/22/23 17:00 Urine Culture - Preliminary Clean Catch Midstream NO GROWTH TO DATE - Radiology Exams Ordered Rad Exams-Entire Visit: Radiology Procedures Category Date Time Status CHEST 1 VIEW (PORTABLE) Stat Exams 12/22/23 14:01 Completed - Procedures and Test Procedures and Tests throughout Hospitalization: Therapy Orders & Screens 12/22/23 16:47 Respiratory Therapy Consult ONCE Comment: Reason For Exam: 12/22/23 18:13 PT Eval & Treat ( Order) ONCE Reason for Eval:: orthostatic hypotension Diagnosis: low blood pressure EKG REPEAT IN AM Comment: Diagnosis: low blood pressure OT Eval and Treat ( Order) ONCE Comment: Physician Instructions: Reason For Exam: Diagnosis: low blood pressure Final Diagnosis/Problem List - Final Discharge Diagnosis/Problem (1) Orthostatic hypotension Status: Acute Code(s): I95.1 - ORTHOSTATIC HYPOTENSION (2) Hypomagnesemia Status: Acute Code(s): E83.42 - HYPOMAGNESEMIA (3) Hyperkalemia Status: Acute Code(s): E87.5 - HYPERKALEMIA (4) MATT (acute kidney injury) Status: Acute Code(s): N17.9 - ACUTE KIDNEY FAILURE, UNSPECIFIED (5) HLD (hyperlipidemia) Status: Acute Code(s): E78.5 - HYPERLIPIDEMIA, UNSPECIFIED (6) GERD (gastroesophageal reflux disease) Status: Acute Code(s): K21.9 - GASTRO-ESOPHAGEAL REFLUX DISEASE WITHOUT ESOPHAGITIS (7) HTN (hypertension) Status: Acute Code(s): I10 - ESSENTIAL (PRIMARY) HYPERTENSION (8) Type 2 diabetes mellitus Status: Acute (9) CHF (congestive heart failure) Status: Acute Code(s): I50.9 - HEART FAILURE, UNSPECIFIED (10) Smoker Status: Acute Code(s): F17.200 - NICOTINE DEPENDENCE, UNSPECIFIED, UNCOMPLICATED - Discharge Disposition: Against Medical Advice Condition: Stable Prescriptions: No Action Testosterone Cypionate 200 mg IM UD Clopidogrel Bisulfate [Clopidogrel] 75 mg PO DAILY Metformin HCl 1,000 mg PO BID Omeprazole 20 mg PO 0600 Diclofenac Sodium 50 mg [Voltaren 50 mg] 1 tab PO BID Misoprostol [Cytotec] 200 mcg PO BID Gabapentin [Gabapentin ER] 1,800 mg PO HS Semaglutide [Ozempic] 0.5 mg SQ WEEKLY Midodrine HCl [Proamatine] 10 mg PO BID Tamsulosin HCl 0.4 mg [Flomax 0.4 MG] 0.4 mg PO DAILY Pioglitazone HCl 15 mg PO BID Tapentadol HCl [Nucynta] 200 mg PO HS Tapentadol HCl [Nucynta] 300 mg PO DAILY Diclofenac Sodium [Diclofenac Sodium ER] 75 mg PO BID Instructions: Leaving Against Medical Advice Follow up with: SAMI ALLEN [Primary Care Provider] -
== END 2023-12-22 22:00 | disposition left against medical advice (07) ==
LOC: ED 13:31 → MED SURG 16:43
PROVIDERS: ADMIT Internal Medicine; ATTEND Internal Medicine
DX: I95.1 Orthostatic hypotension (principal); E83.42 Hypomagnesemia; E87.5 Hyperkalemia; N17.9 Acute kidney failure, unspecified; E78.5 Hyperlipidemia, unspecified; K21.9 Gastro-esophageal reflux disease without esophagitis; E11.9 Type 2 diabetes mellitus without complications; I11.0 Hypertensive heart disease with heart failure; I50.9 Heart failure, unspecified; F17.200 Nicotine dependence, unspecified, uncomplicated; Z79.899 Other long term (current) drug therapy
CPT/HCPCS: 36000; 36415; 71045; 80053; 80307; 81001; 82570; 83605; 83690; 83735; 83880; 84300; 84443; 84484; 87040; 87086; 93005; 94760; 96360; 96374; 96375; 99285; J0612; J1815; J3475; Q3014

== ENCOUNTER 2024-06-27 11:46 | Emergency (ER) | payer MEDICARE ==
--- NOTE | 2024-06-27 12:04 | ERPHSYRPT ---
- History of Present Illness Time Seen by Provider: 06/27/24 12:03 Source: patient, family Exam Limitations: no limitations Physician History: This is a 58-year-old white male patient of Dr. Slater who arrives by private vehicle secondary to left knee pain. Patient was moving a car out of the way of the paramedics who were there to pickle sorter his spouse when he slipped on the ice and fell onto his left knee. He had just taken pain medication so without movement, standing or walking he has no significant pain. However there is pain with ambulation. He can ambulate. Occurred approximately 11 AM today. Patient has a history of prostate issues, gastroesophageal reflux disease, diabetes and he is taking Plavix. Occurred: this morning Quality: aching (Standing or ambulating) Severity of Pain-Max: mild Severity of Pain-Current: mild Lower Extremities Pain: knee: left Modifying Factors: Improves With: movement Associated Symptoms: other (Mild pain with ambulating and standing but can move) Allergies/Adverse Reactions: iodine Allergy (Severe, Verified 12/22/23 13:39) Blisters states "skin comes off" povidone-iodine [From Betadine] Allergy (Severe, Verified 12/22/23 13:39) Blisters soap [From Betadine] Allergy (Severe, Verified 12/22/23 13:39) Blisters Sulfa (Sulfonamide Antibiotics) Allergy (Unknown, Verified 12/22/23 13:39) sulfamethoxazole [From Bactrim] Allergy (Unknown, Verified 12/22/23 13:39) trimethoprim [From Bactrim] Allergy (Unknown, Verified 12/22/23 13:39) IV DYE Allergy (Severe, Uncoded 12/22/23 13:39) Blisters Home Medications: Testosterone Cypionate 200 mg IM UD 10/13/17 [History] Clopidogrel Bisulfate [Clopidogrel] 75 mg PO DAILY 12/02/19 [History] Metformin HCl 1,000 mg PO BID 12/02/19 [History] Omeprazole 20 mg PO 0600 12/09/19 [History] Diclofenac Sodium 50 mg [Voltaren 50 mg] 1 tab PO BID 01/27/22 [History] Gabapentin [Gabapentin ER] 1,800 mg PO HS 10/19/23 [History] Misoprostol [Cytotec] 200 mcg PO BID 10/19/23 [History] Semaglutide [Ozempic] 0.5 mg SQ WEEKLY 10/19/23 [History] Diclofenac Sodium [Diclofenac Sodium ER] 75 mg PO BID 12/22/23 [History] Midodrine HCl [Proamatine] 10 mg PO BID 12/22/23 [History] Pioglitazone HCl 15 mg PO BID 12/22/23 [History] Tamsulosin HCl 0.4 mg [Flomax 0.4 MG] 0.4 mg PO DAILY 12/22/23 [History] Tapentadol HCl [Nucynta] 200 mg PO HS 12/22/23 [History] Tapentadol HCl [Nucynta] 300 mg PO DAILY 12/22/23 [History] Hx Tetanus, Diphtheria Vaccination/Date Given: Yes Hx Influenza Vaccination/Date Given: No Hx Pneumococcal Vaccination/Date Given: No Travel Risk - International Travel Have you traveled outside of the country in past 3 weeks: No - Emerging Infectious Disease Are you exhibiting symptoms associated with any current EIDs: No - Review of Systems Constitutional: No Symptoms Eyes: No Symptoms Ears, Nose, & Throat: No Symptoms Respiratory: No Symptoms Cardiac: No Symptoms Abdominal/Gastrointestinal: No Symptoms Genitourinary Symptoms: No Symptoms Musculoskeletal: Injury (Left knee) Skin: No Symptoms Neurological: No Symptoms Psychological: No Symptoms Endocrine: No Symptoms Hematologic/Lymphatic: No Symptoms Immunological/Allergic: No Symptoms All Other Systems: Reviewed and Negative - Past Medical History Pertinent Past Medical History: Yes Neurological History: No Pertinent History ENT History: No Pertinent History Cardiac History: Peripheral Vascular Disease Respiratory History: Sleep Apnea Endocrine Medical History: Diabetes Type II Musculoskeletal History: No Pertinent History GI Medical History: No Pertinent History History: No Pertinent History Psycho-Social History: No Pertinent History Male Reproductive Disorders: No Pertinent History Other Medical History: PT IS NIDDM, scrotal sac removed for a history of a spider bite that resulted in gangrene as stated per pt.abscess to right axilla - Past Surgical History Past Surgical History: Yes Neuro Surgical History: No Pertinent History Cardiac: Vascular Surgery Respiratory: No Pertinent History Gastrointestinal: No Pertinent History Genitourinary: No Pertinent History Musculoskeletal: Joint Replacement, Orthopedic Surgery Male Surgical History: No Pertinent History Other Surgical History: SCROTOM REMOVED AND REBUILT, RT KNEE REPLACEMENT, angioplasty to left leg ,neck surgery - Social History Smoking Status: Former smoker How long have you smoked: 40 yrs Exposure to second hand smoke: Yes Drug Use: none Patient Lives Alone: No - Social Determinants of Health Will the patient participate in the screening: Declined to provide - Nursing Vital Signs Nursing Vital Signs: Initial Vital Signs Temperature 97.2 F 06/27/24 12:41 Pulse Rate 103 H 06/27/24 12:41 Respiratory Rate 18 06/27/24 12:41 Blood Pressure 141/79 06/27/24 12:41 O2 Sat by Pulse Oximetry 99 06/27/24 12:41 Pain Scale Pain Intensity 2 - Physical Exam General Appearance: no apparent distress, alert Eyes, Ears, Nose, Throat Exam: normal ENT inspection, moist mucous membranes Neck Exam: normal inspection, non-tender, supple, full range of motion Cardiovascular/Respiratory Exam: chest non-tender, no respiratory distress Gastrointestinal/Abdominal Exam: non-tender Back Exam: normal inspection, normal range of motion, No CVA tenderness, No vertebral tenderness Hips Exam: bilateral: non-tender, normal inspection, normal range of motion, no evidence of injury Legs Exam: bilateral leg: non-tender, normal inspection, normal range of motion, no evidence of injury Knees Exam: right knee: non-tender, left knee: soft tissue tenderness, bilateral knee: normal inspection, normal range of motion, no evidence of injury Ankle Exam: bilateral ankle: non-tender, normal inspection, normal range of motion, no evidence of injury Foot Exam: bilateral foot: non-tender, normal inspection, normal range of motion, no evidence of injury Neuro/Tendon Exam: normal sensation, normal motor functions, normal tendon functions, responds to pain, no evidence tendon injury Mental Status Exam: alert, oriented x 3, cooperative Skin Exam: normal color, warm, dry SpO2 Interpretation: normal O2 Delivery: Room Air - Course Nursing assessment & vital signs reviewed: Yes Ordered Tests: Active Orders 24 hr Category Date Time Status KNEE (3 VIEWS) Stat Exams 06/27/24 13:07 Taken - Progress Progress: unchanged Progress Note: 06/27/24 13:49 My medical decision making and the assignment of low complexity to this patient's medical issue today is based on review of the patient's past medical history, review of the patient's medication list, reviewed patient drug allergy list, history present illness and physical findings on examination. The workup today includes x-ray of the patient's left knee. Differential diagnosis includes but is not limited to left knee strain, left knee fracture, left knee sprain, left knee dislocation. 06/27/24 13:51 I interpreted the patient's preliminary left knee x-ray. Based on my interpretation, there are chronic, arthritic changes but no acute fracture or dislocation. Counseled pt/family regarding: diagnosis, need for follow-up, rad results Medical Desision Making - Diagnostic Testing Diagnostic test were ordered, analyzed, and reviewed by me: Yes Radiological Interpretation: Interpreted by me, Teleradiologist Report - Risk of complications Low Risk: Low risk of morbidity from additional dx testing or treatment - Departure Departure Disposition: Home Clinical Impression: Left knee pain, Fall with no significant injury Condition: Stable Critical Care Time: No Referrals: SAMI SLATER [Primary Care Provider] - Follow up/PCP as directed Additional Instructions: Ice pack to tender area 3-4 times a day for the next 3 to 4 days. Use your previously prescribed pain medication.
[2024-06-27 13:54] VITALS: BP 138/50; PULSE 88; RESP 20; TEMP 98.2; O2SAT 98
--- NOTE | 2024-06-27 14:01 | XRAY ---
Indication: Status post fall. Comparison: February 21, 2018 3 view left knee again demonstrates osteopenia with progressive worsening mild/moderate tricompartmental degenerative changes again greatest medial compartment. Again mild scattered vascular calcifications with new vascular clips. No acute bony, articular, or soft tissue abnormalities.
== END 2024-06-27 14:02 | disposition home or self-care (01) ==
LOC: ED 11:46
DX: M25.562 Pain in left knee (principal); W00.0XXA Fall on same level due to ice and snow, initial encounter; Y92.007 Garden or yard of unspecified non-institutional (private) residence as the place of occurrence of the external cause; E11.9 Type 2 diabetes mellitus without complications; Z79.02 Long term (current) use of antithrombotics/antiplatelets; Z79.84 Long term (current) use of oral hypoglycemic drugs; Z79.85 Long-term (current) use of injectable non-insulin antidiabetic drugs; Z79.899 Other long term (current) drug therapy
CPT/HCPCS: 73562; 99282; 99283